=== PATIENT | male | born 1975 | race Caucasian/White ===

== ENCOUNTER 2020-12-07 23:11 | Observation (INO) ==
[2020-12-07] MEDS ORDERED: SODIUM CHLORIDE 0.9% 1000ML 1,000 ML IV ONE (23:51)
[2020-12-07] MEDS ORDERED: LORazepam 1 MG/2 ML VIAL IV STA (23:53)
[2020-12-08 00:15] LABS: Alanine Aminotransferase 43 U/L (12-78); Albumin Level 3.6 gm/dl (3.4-5.0); Aspartate Aminotransferase 63 U/L (15-37); BUN Creatinine Ratio 6.4 (10-20); Blood Urea Nitrogen 8 mg/dl (7-18); Calcium 9.4 mg/dl (8.5-10.1); Carbon Dioxide 24 mmol/L (21-32); Chloride 94 mmol/L (98-107); Creatinine Clr Calc Pharmacy 94.8 ml/min; Est GFR (African American) 78.2 ml/min; Est GFR (Non-African American) 67.5 ml/min; Glucose 121 mg/dl (70-99); Magnesium 1.8 mg/dl (1.8-2.4); Potassium 3.6 mmol/L (3.5-5.1); Sodium 132 mmol/L (136-145)
[2020-12-08] MEDS ORDERED: cefTRIAXone SODIUM 2,000 MG/70 ML BAG IV STA (00:16)
[2020-12-08 00:19] LABS: Albumin Globulin Ratio 0.8 (0.9-2); Alkaline Phosphatase 97 U/L (45-117); Bilirubin,Total 1.6 mg/dl (0.2-1); Globulin 4.5 gm/dl (2.5-4.0); Total Protein 8.1 gm/dl (6.4-8.2); Troponin I < 0.015 ng/ml (0-0.045)
[2020-12-08 00:20] LABS: Partial Thromboplastin Ratio 0.9; Partial Thromboplastin Time 24.3 Seconds (21.0-31.0)
[2020-12-08 00:21] LABS: Hematocrit (blood only) 50.1 % (42-52); Hemoglobin 17.8 g/dL (14.0-18.0); Mean Corpuscular Hemoglobin 33.2 pg (25-34); Mean Corpuscular Hgb Conc 35.5 g/dL (32-36); Mean Corpuscular Volume 93.5 fL (80-100); Mean Platelet Volume 9.5 fL (7.4-10.4); Platelet Count 68 K/uL (130-400); RDW Coefficient of Variation 16.1 % (11.5-14.5); RDW Standard Deviation 55.1 fL (36.4-46.3); Red Blood Count 5.36 M/uL (4.7-6.1); White Blood Count 6.58 K/uL (4.8-10.8)
[2020-12-08] MEDS ORDERED: cloNIDine HCL 0.3 MG/24 HR TRANSDERM SYS TD STA (00:21)
[2020-12-08] MEDS ORDERED: MULTI-VITAMIN INFUSION 10 ML, THIAMINE HCL 100 MG, FOLIC ACID 1 MG in SODIUM CHLORIDE 0... IV ONE (00:21)
[2020-12-08] MEDS ORDERED: LORazepam 1 MG/2 ML VIAL IV STA (00:22)
[2020-12-08 00:41] LABS: Basophils # (auto) 0.01 K/uL (0-0.2); Basophils % (auto) 0.2 %; Eosinophils # (auto) 0.03 K/uL (0-0.5); Eosinophils % (auto) 0.5 %; Immature Granulocytes # (auto) 0.02 K/uL (0.00-0.02); Immature Granulocytes % (auto) 0.3 %; Lymphocytes # (auto) 0.54 K/uL (1.2-3.4); Lymphocytes % (auto) 8.2 %; Monocytes # (auto) 0.81 K/uL (0.11-0.59); Monocytes % (auto) 12.3 %; Neutrophils # (auto) 5.17 K/uL (1.4-6.5); Neutrophils % (auto) 78.5 %; Platelet Estimate Decreased (Normal); RBC Morphology Unremarkable
[2020-12-08 00:48] LABS: Lyme Ab IgG w/WB Rflx Negative (Negative); Lyme Ab IgM w/WB Rflx Negative (Negative)
--- NOTE | 2020-12-08 02:19 | Emergency Department Note ---
Impression & Plan Alcohol withdrawal ED Provider Note NAME: RAUL MCCORMICK AGE: 45 SEX: M : 1975 ARRIVES VIA: Ambulance INFORMANT: Patient, EMS ED PROVIDER(S): Abimael Quintero MD CHIEF COMPLAINT: Feels like passing out, intense sweating HPI: This a 45-year-old male who was driving his car this evening when he became dizzy and extremely sweaty. The patient reports anytime he moves his head he is extremely dizzy. He reports rest makes this better. He reports he had a similar incident approximately 1 month ago. He denies any fevers or chills. He reports nothing seems to make this any better or worse. He called EMS because he felt like he was going to pass out. Upon arrival to the emergency department the patient is extremely sweaty. ROS: See above HPI for pertinent positives & negatives. A total of 10 systems reviewed and were otherwise negative. PAST MEDICAL HISTORY: See Below PAST SURGICAL HISTORY: See Below FAMILY HISTORY: See Below SOCIAL HISTORY: See Below HOME MEDICATIONS: See Below ALLERGIES: See Below VITALS: See Below PHYSICAL EXAMINATION: VITAL SIGNS - Vital signs and nursing notes were reviewed. GENERAL -45 -year-old male appearing stated age who is in moderate distress. Communicates well with provider and answers questions appropriately. SKIN - Without rashes, extremely diaphoretic HEAD - NC/AT. EYES - PERRL with EOMI bilaterally. Sclera anicteric. Palpebral conjunctiva pink and moist with no injection noted. EARS - No deformities of external structures noted on gross examination bilaterally. NOSE - Midline and without cyanosis. No epistaxis or purulent drainage noted. Septum midline without deviation or septal hematoma noted. MOUTH/OROPHARYNX - Without perioral cyanosis. Buccal mucosa pink and moist and without leukoplakia. Tongue midline with equal elevation of palate bilaterally. No tonsillar hypertrophy, erythema, or exudates noted. NECK - Neck with FROM. Supple to palpation. No nuchal rigidity. LUNGS - Chest wall symmetric without accessory muscle use, intercostals retractions, or central cyanosis. Normal vesicular breath sounds CTA B/L. No wheezes, rales, or rhonchi appreciated. CARDIAC - RRR with S1/S2. No murmur, rubs, or gallops appreciated. ABDOMEN - Abdominal contour BS normoactive all four quadrants. No tenderness, palpable masses, hepatosplenomegaly, or ascites noted. EXTREMITIES - No clubbing or peripheral cyanosis. No pretibial edema present. +3/5 radial, posterior tibial, and dorsalis pedis pulses palpated throughout. +5/5 strength noted in UE/LE bilaterally. NEUROLOGIC - Cranial nerves II through XII grossly intact. Sensory intact to light touch throughout. Patellar reflexes +2/4. PSYCH - A&Ox3 and cooperates fully with examiner. Pt is very pleasant and interacts well with examiner. MEDICAL DECISION MAKING: Patient was seen and evaluated as above in room A9. Review was performed of [facility] notes and vital signs. I did review pertinent previous visits and patient history. After obtaining a thorough history and physical examination the above work up was performed. This a 45-year-old male who presents emergency department with what appears to be acute alcohol withdrawal. Patient was given Ativan here in the emergency department x2 as well as a clonidine patch and a banana bag. He does not have an elevation in his white blood cell count his troponin is also not elevated. In addition the patient also has elevations in his liver enzymes with a decrease in his platelets therefore he was covered for anaplasmosis by being started on IV Rocephin. I did discuss the case with the hospitalist service who did agree to meet the patient. An order was placed for continuous cardiac monitoring. The monitor shows a rate of 86 with Normal SInus rhythm. The patient was evaluated during a period of high volume and high acuity during the global COVID-19 pandemic, and that diagnosis was suspected/considered upon their initial presentation. Their evaluation, treatment and testing was consistent with current guidelines for patients who present with complaints or symptoms that may be related to COVID-19. Patient was seen while provider was wearing PPE. Triage Nursing notes reviewed. Prior medical records reviewed Vital Signs: reviewed and remarkable for hypertension, tachycardia Differential diagnosis: Alcohol intoxication, toxicologic, infection, hypoglycemia, electrolyte abnormalities, cardiac sources, intracerebral event, neurologic, trauma, as well as other pathologies. ER treatment provided: See below Diagnostics interpreted by me: ECG: EKG shows a sinus tachycardia left axis deviation no ST elevation or depression QTC is 479 ventricular rate is 102 EKG is compared to 07/15/2020 nonspecific T wave abnormality now evident in the lateral leads. Laboratory studies: As stated above and show below. Imaging studies: See below Consultation(s): Internal Medicine ED COURSE: Critical Care: I have personally spent greater than 30 minutes of critical care time in the direct management of this patient. This includes bedside care, interpretation of diagnostic studies, and testing, discussion with consultants, patient, and family members, and other required patient management activities. This 30 minutes is in excess of all separately billable procedures. Past Med/Surg History Medical History (Updated 12/09/20 @ 04:23 by Abimael Quintero MD) Alcohol abuse Anxiety Depression Surgical History (Updated 12/08/20 @ 06:52 by Melinda Butcher DO) History of tonsillectomy Social History Smoking Status: Never smoker Second Hand Exposure: No; Do You Dip or Chew Tobacco: No; Tobacco Cessation Education Requested by Patient: No Hx Alcohol Use: Yes Alcohol type: wine Hx Substance Use: No Preferred Language: Wolof Communication Ability: Effective Converter Supervisor Required: No Beliefs That Will Affect Care: None Current Living Situation: Alone Other Information That Helps Us Care for You: No Feels Safe at Home: Yes Assistive Devices: None Allergies Allergies Allergy/AdvReac Type Severity Reaction Status Date / Time Penicillins Allergy Mild Hives Verified 12/08/20 02:25 Home Meds Home Medications Medication Instructions Recorded Confirmed cholecalciferol (vitamin D3) 0 mcg PO DAILY 12/08/20 12/08/20 [Vitamin D3] multivitamin 1 tab PO DAILY 12/08/20 12/08/20 vitamin B complex 1 tab PO DAILY 12/08/20 12/08/20 vitamin E 0 unit PO DAILY 12/08/20 12/08/20 Results & Data (ED) Vital Signs Vital Signs - 24 hr 12/07/20 23:15 12/07/20 23:16 12/07/20 23:30 Temperature 37.1 C Temperature Source Oral Pulse Rate 112 H 114 H 110 H Pulse Rate from SpO2 Sensor 113 H 108 H Respiratory Rate 15 17 11 L Respiratory Effort / Characteristics Non-Labored Spontaneous Respiratory Pattern Regular Blood Pressure 220/129 H 220/129 H 210/124 H Blood Pressure Mean 159 159 152 Blood Pressure Position Lying Pulse Oximetry 98 98 96 Oxygen Delivery Method Room Air Sepsis Recent Fever Within 48 Hours No Sepsis New/Unexplained Change in Mental Status No Sepsis Action Taken by Nursing No Action Required 12/07/20 23:45 12/08/20 00:00 12/08/20 00:10 Temperature Temperature Source Pulse Rate 104 H 103 H 115 H Pulse Rate from SpO2 Sensor 104 H 104 H 115 H Respiratory Rate 18 16 11 L Respiratory Effort / Characteristics Respiratory Pattern Blood Pressure 203/119 H 199/122 H Blood Pressure Mean 147 147 Blood Pressure Position Pulse Oximetry 96 96 98 Oxygen Delivery Method Sepsis Recent Fever Within 48 Hours Sepsis New/Unexplained Change in Mental Status Sepsis Action Taken by Nursing 12/08/20 00:15 12/08/20 00:45 12/08/20 01:00 Temperature Temperature Source Pulse Rate 105 H 107 H 106 H Pulse Rate from SpO2 Sensor 106 H 109 H 106 H Respiratory Rate 20 12 13 Respiratory Effort / Characteristics Respiratory Pattern Blood Pressure 196/123 H 172/110 H 160/111 H Blood Pressure Mean 147 130 127 Blood Pressure Position Pulse Oximetry 95 92 95 Oxygen Delivery Method Sepsis Recent Fever Within 48 Hours Sepsis New/Unexplained Change in Mental Status Sepsis Action Taken by Nursing 12/08/20 01:28 12/08/20 01:30 12/08/20 02:00 Temperature Temperature Source Pulse Rate 101 H 106 H 106 H Pulse Rate from SpO2 Sensor 102 H 106 H 106 H Respiratory Rate 20 15 20 Respiratory Effort / Characteristics Respiratory Pattern Blood Pressure 173/107 H 169/102 H 153/100 H Blood Pressure Mean 129 124 117 Blood Pressure Position Pulse Oximetry 92 95 94 Oxygen Delivery Method Sepsis Recent Fever Within 48 Hours Sepsis New/Unexplained Change in Mental Status Sepsis Action Taken by Nursing Laboratory Data Result diagrams: 12/08/20 05:35 12/07/20 23:30 Lab Results 12/07/20 12/07/20 12/07/20 Range/Units 23:26 23:30 23:30 WBC 6.58 (4.8-10.8) K/uL RBC 5.36 (4.7-6.1) M/uL Hgb 17.8 (14.0-18.0) g/dL Hct 50.1 (42-52) % MCV 93.5 (80-100) fL MCH 33.2 (25-34) pg MCHC 35.5 (32-36) g/dL RDW Std Deviation 55.1 H (36.4-46.3) fL RDW Coeff of Theron 16.1 H (11.5-14.5) % Plt Count 68 L (130-400) K/uL MPV 9.5 (7.4-10.4) fL Immature Gran % (Auto) 0.3 % Neut % (Auto) 78.5 % Lymph % (Auto) 8.2 % Granite % (Auto) 12.3 % Eos % (Auto) 0.5 % Baso % (Auto) 0.2 % Neut # (Auto) 5.17 (1.4-6.5) K/uL Lymph # (Auto) 0.54 L (1.2-3.4) K/uL Granite # (Auto) 0.81 H (0.11-0.59) K/uL Eos # (Auto) 0.03 (0-0.5) K/uL Baso # (Auto) 0.01 (0-0.2) K/uL Immature Gran # (Auto) 0.02 (0.00-0.02) K/uL Platelet Estimate Decreased L (Normal) RBC Morphology Unremarkable APTT 24.3 (21.0-31.0) Seconds PTT Ratio 0.9 Sodium (136-145) mmol/L Potassium (3.5-5.1) mmol/L Chloride (98-107) mmol/L Carbon Dioxide (21-32) mmol/L Anion Gap (3-11) BUN (7-18) mg/dl Creatinine (0.6-1.4) mg/dl Est Cr Clr Drug Dosing ml/min Est GFR ( Amer) ml/min Est GFR (Non-Af Amer) ml/min BUN/Creatinine Ratio (10-20) Glucose (70-99) mg/dl POC Glucose 138 H (70-99) mg/dl Calcium (8.5-10.1) mg/dl Magnesium (1.8-2.4) mg/dl Total Bilirubin (0.2-1) mg/dl AST (15-37) U/L ALT (12-78) U/L Alkaline Phosphatase (45-117) U/L Troponin I (0-0.045) ng/ml Total Protein (6.4-8.2) gm/dl Albumin (3.4-5.0) gm/dl Globulin (2.5-4.0) gm/dl Albumin/Globulin Ratio (0.9-2) Ethyl Alcohol mg/dL (0-3) mg/dl Anaplasma Smear See Comment Lyme Disease IgG Ab (Negative) Lyme Disease IgM Ab (Negative) COVID-19 Eval Order SARS-CoV-2 (PCR) (Negative) 12/07/20 12/07/20 12/08/20 Range/Units 23:30 23:30 00:06 WBC (4.8-10.8) K/uL RBC (4.7-6.1) M/uL Hgb (14.0-18.0) g/dL Hct (42-52) % MCV (80-100) fL MCH (25-34) pg MCHC (32-36) g/dL RDW Std Deviation (36.4-46.3) fL RDW Coeff of Therno (11.5-14.5) % Plt Count (130-400) K/uL MPV (7.4-10.4) fL Immature Gran % (Auto) % Neut % (Auto) % Lymph % (Auto) % Granite % (Auto) % Eos % (Auto) % Baso % (Auto) % Neut # (Auto) (1.4-6.5) K/uL Lymph # (Auto) (1.2-3.4) K/uL Granite # (Auto) (0.11-0.59) K/uL Eos # (Auto) (0-0.5) K/uL Baso # (Auto) (0-0.2) K/uL Immature Gran # (Auto) (0.00-0.02) K/uL Platelet Estimate (Normal) RBC Morphology APTT (21.0-31.0) Seconds PTT Ratio Sodium 132 L (136-145) mmol/L Potassium 3.6 (3.5-5.1) mmol/L Chloride 94 L (98-107) mmol/L Carbon Dioxide 24 (21-32) mmol/L Anion Gap 14.0 H (3-11) BUN 8 (7-18) mg/dl Creatinine 1.29 (0.6-1.4) mg/dl Est Cr Clr Drug Dosing 94.8 ml/min Est GFR ( Amer) 78.2 ml/min Est GFR (Non-Af Amer) 67.5 ml/min BUN/Creatinine Ratio 6.4 L (10-20) Glucose 121 H (70-99) mg/dl POC Glucose (70-99) mg/dl Calcium 9.4 (8.5-10.1) mg/dl Magnesium 1.8 (1.8-2.4) mg/dl Total Bilirubin 1.6 H (0.2-1) mg/dl AST 63 H (15-37) U/L ALT 43 (12-78) U/L Alkaline Phosphatase 97 (45-117) U/L Troponin I < 0.015 (0-0.045) ng/ml Total Protein 8.1 (6.4-8.2) gm/dl Albumin 3.6 (3.4-5.0) gm/dl Globulin 4.5 H (2.5-4.0) gm/dl Albumin/Globulin Ratio 0.8 L (0.9-2) Ethyl Alcohol mg/dL (0-3) mg/dl Anaplasma Smear Lyme Disease IgG Ab Negative (Negative) Lyme Disease IgM Ab Negative (Negative) COVID-19 Eval Order Covid19 at [facility] SARS-CoV-2 (PCR) (Negative) 12/08/20 12/08/20 Range/Units 00:06 00:31 WBC (4.8-10.8) K/uL RBC (4.7-6.1) M/uL Hgb (14.0-18.0) g/dL Hct (42-52) % MCV (80-100) fL MCH (25-34) pg MCHC (32-36) g/dL RDW Std Deviation (36.4-46.3) fL RDW Coeff of Theron (11.5-14.5) % Plt Count (130-400) K/uL MPV (7.4-10.4) fL Immature Gran % (Auto) % Neut % (Auto) % Lymph % (Auto) % Granite % (Auto) % Eos % (Auto) % Baso % (Auto) % Neut # (Auto) (1.4-6.5) K/uL Lymph # (Auto) (1.2-3.4) K/uL Granite # (Auto) (0.11-0.59) K/uL Eos # (Auto) (0-0.5) K/uL Baso # (Auto) (0-0.2) K/uL Immature Gran # (Auto) (0.00-0.02) K/uL Platelet Estimate (Normal) RBC Morphology APTT (21.0-31.0) Seconds PTT Ratio Sodium (136-145) mmol/L Potassium (3.5-5.1) mmol/L Chloride (98-107) mmol/L Carbon Dioxide (21-32) mmol/L Anion Gap (3-11) BUN (7-18) mg/dl Creatinine (0.6-1.4) mg/dl Est Cr Clr Drug Dosing ml/min Est GFR ( Amer) ml/min Est GFR (Non-Af Amer) ml/min BUN/Creatinine Ratio (10-20) Glucose (70-99) mg/dl POC Glucose (70-99) mg/dl Calcium (8.5-10.1) mg/dl Magnesium (1.8-2.4) mg/dl Total Bilirubin (0.2-1) mg/dl AST (15-37) U/L ALT (12-78) U/L Alkaline Phosphatase (45-117) U/L Troponin I (0-0.045) ng/ml Total Protein (6.4-8.2) gm/dl Albumin (3.4-5.0) gm/dl Globulin (2.5-4.0) gm/dl Albumin/Globulin Ratio (0.9-2) Ethyl Alcohol mg/dL < 3.0 (0-3) mg/dl Anaplasma Smear Lyme Disease IgG Ab (Negative) Lyme Disease IgM Ab (Negative) COVID-19 Eval Order SARS-CoV-2 (PCR) NEGATIVE (Negative) Administered Medications Lorazepam (Ativan) 1 mg in 2 mls @ 2 mls/min IV UD PRN; Protocol PRN Reason: EtOH Withdrawl AWSS Score 6,7 Stop: 01/07/21 03:27 Last Admin: 12/09/20 00:03 Dose: 2 mls/min Documented by: [id number] Admin: 12/08/20 20:36 Dose: 2 mls/min Documented by: [id number] Admin: 12/08/20 15:25 Dose: 2 mls/min Documented by: [id number] Admin: 12/08/20 05:49 Dose: 2 mls/min Documented by: [id number] Miscellaneous (Check Clonidine Patch Placement) 1 ea N/A QS LAN Stop: 01/07/21 07:59 Last Admin: 12/09/20 00:03 Dose: 1 ea Documented by: [id number] Admin: 12/08/20 15:49 Dose: 1 ea Documented by: [id number] Admin: 12/08/20 11:39 Dose: 1 ea Documented by: [id number] Miscellaneous (Remove Clonidine Patch) 1 ea N/A Q7D@0600 LAN Stop: 01/14/21 05:59 Last Admin: 12/08/20 11:39 Dose: 1 ea Documented by: [id number] Thiamine HCl (Thiamine Hcl 100 Mg Tab) 200 mg PO QAM LAN Stop: 01/07/21 08:59 Last Admin: 12/08/20 08:01 Dose: 200 mg Documented by: [id number] Discontinued Medications Clonidine HCl (Clonidine Hcl 0.3 Mg/24 Hr Transderm Sys) 1 patch TD NOW STA Stop: 12/08/20 00:22 Last Admin: 12/08/20 00:38 Dose: 1 patch Documented by: [id number] Gabapentin (Gabapentin 400 Mg Cap) 800 mg PO ONE ONE Stop: 12/08/20 07:16 Last Admin: 12/08/20 08:00 Dose: 800 mg Documented by: [id number] Gabapentin (Gabapentin 400 Mg Cap) 400 mg PO Q6H LAN Stop: 12/08/20 20:01 Last Admin: 12/08/20 20:38 Dose: 400 mg Documented by: [id number] Admin: 12/08/20 13:57 Dose: 400 mg Documented by: [id number] Hydroxyzine HCl (Hydroxyzine Hcl 25 Mg Tab) 25 mg PO NOW STA Stop: 12/08/20 03:29 Last Admin: 12/08/20 03:36 Dose: 25 mg Documented by: [id number] Sodium Chloride (Nss 1000ml) 1,000 mls @ 999 mls/hr IV .Q1H1M ONE Stop: 12/08/20 00:51 Last Infusion: 12/08/20 02:00 Dose: 0 mls/hr Documented by: [id number] Admin: 12/08/20 00:04 Dose: 999 mls/hr Documented by: [id number] Lorazepam (Ativan) 1 mg in 2 mls @ 2 mls/min IV NOW STA Stop: 12/07/20 23:54 Last Admin: 12/08/20 00:04 Dose: 2 mls/min Documented by: [id number] Ceftriaxone Sodium (Rocephin) 2,000 mg in 70 mls @ 140 mls/hr IV NOW STA Stop: 12/08/20 00:45 Last Infusion: 12/08/20 02:00 Dose: 0 mls/hr Documented by: [id number] Admin: 12/08/20 00:33 Dose: 140 mls/hr Documented by: [id number] Multivitamins 10 ml/ Thiamine HCl 100 mg/ Folic Acid 1 mg/Sodium Chloride 1, 011.2 mls @ 1,011.2 mls/hr IV .Q1H ONE Stop: 12/08/20 01:20 Last Infusion: 12/08/20 02:13 Dose: 0 mls/hr Documented by: [id number] Admin: 12/08/20 00:38 Dose: 1,011.2 mls/hr Documented by: [id number] Lorazepam (Ativan) 1 mg in 2 mls @ 2 mls/min IV NOW STA Stop: 12/08/20 00:23 Last Admin: 12/08/20 00:33 Dose: 2 mls/min Documented by: [id number] Ioversol (Optiray 350 500ml) 105 ml IV ONCE ONE Stop: 12/08/20 04:07 Last Admin: 12/08/20 04:06 Dose: 105 ml Documented by: [id number] Miscellaneous (Remove Clonidine Patch) 1 ea N/A CQWK LAN Stop: 01/07/21 00:29 Last Admin: 12/08/20 02:00 Dose: Not Given Documented by: [id number] Discharge Plan Visit Data Chief Complaint: Syncope (Near Syncope) Stated Complaint: DIZZY/LIGHTHEADED ED Provider: Abimael Quintero Discharge Problem: Alcohol withdrawal Patient Disposition: Admitted As Inpatient Discharge Instructions Interventions: ED Discharge Assessment Last Done: 12/08/20 04:33 Discharge Problem: Alcohol withdrawal Qualifiers: Complication of substance-induced condition: with unspecified complication Qual ified Code(s): F10.239 - Alcohol dependence with withdrawal, unspecified
[2020-12-08] MEDS ORDERED: LORazepam 2 MG/4 ML VIAL IV PRN (03:28)
[2020-12-08] MEDS ORDERED: LORazepam 3 MG/6 ML VIAL IV PRN (03:28)
[2020-12-08] MEDS ORDERED: hydrOXYzine HCl 25 MG TAB PO STA (03:28)
[2020-12-08] MEDS ORDERED: ATIVAN IV ALCOHOL WITHDRAWL IV PRN (03:28)
--- NOTE | 2020-12-08 03:36 | History & Physical Report ---
Date of Service December 08, 2020 Assessment & Plan (1) Pre-syncope: Danny Park is a 45-year-old male with past medical history significant for anxiety and depression; who presents for concerns of multiple episodes of near syncopal events without falling last night. Pre-syncope: -Uncertain etiology of presyncopal events; difficult to delineate in the setting of hypertension tachycardia and potential alcohol withdrawal on top of baseline history of anxiety with potential panic attacks also confounding picture -In the absence of focal neurologic findings prior to or after these events do not believe that this represented TIA/stroke events -CTA head/neck demonstrating patent major intracranial arteries, carotid, and vertebral arteries without occlusion dissection or hemodynamically significant stenosis -CT head demonstrating no acute intracranial hemorrhage, mass-effect, or edema. No evidence of acute cortical stroke -Ordered orthostatic blood pressure measurements Anxiety: -Potential contributor to patient's presyncopal events given the surrounding symptoms prior to events and feelings of impending doom -Unfortunately this is complicated by alcohol use and use of Ativan will additionally quell anxiety concerns that might present as alcohol withdrawal -With the minimal effect of Ativan in the ED, gave 25 mg of hydroxyzine which allowed patient to fall asleep -Consideration of secondary sources of anxiety/hypertension/tachycardia if continuing to see no improvement in either anxiety or potentially alcohol withdrawal related symptoms -This could include urine metanephrines for potential pheochromocytoma Alcohol use: -Uncertain what role this is playing as related to both anxiety and syncopal events -Negative alcohol level on admission -Continue AWSS protocol with Ativan as needed per protocol -Continue clonidine patch Pulmonary hypertension: -Mildly enlarged main pulmonary artery noted on CTA neck raising the possibility of primary pulmonary hypertension Thrombocytopenia: -Platelet count 68 on admission. Possibly secondary to underlying liver dysfunction vs toxic effects from EtOH vs tick-borne illness -Patient not having any acute signs of bleeding -Anaplasmosis and tick panel pending -Continue to monitor Transaminitis: -AST 63, ALT 43, bilirubin 1.6 on admission -Continue to monitor -Total and direct bilirubin ordered Diet: Regular CODE STATUS: Full code DVT ppx: deferred at this time (2) Anxiety: (3) Alcohol use: History of Present Illness Primary Care Provider: NO PCP Danny Park is a 45-year-old male with past medical history significant for anxiety and depression; who presents for concerns of multiple episodes of near syncopal events without falling last night. Endorses that he has had similar kind of symptoms once before, approximately 2 weeks ago, this episode occurred following working out at the gym taking a hot shower and then attempting to recover on a hydrobed; at the time his symptoms resolved relatively quickly, with him needing to sit up and control his breathing for about 20 seconds. Up until last night had no further episodes like this. Last night, returned from buying food at the store and was laying in his car watching some videos on his phone when he realized that several hours had passed by and quickly sat upright in order to get out of the car, at that point he felt slightly off-kilter/unbalanced similar to the original episode, took about 2030 seconds taking slow deep breaths and felt like this resolved. Then upon getting out of his (what he notes as notably warm car) he was standing by the side of his car when a cold breeze hit him and he became very dizzy with noted nausea, and feeling of unsteadiness. Following this recurring he began to worry that he would continue to have the symptoms and if he was continuing to have these things that they might represent that he is dying sometime soon. Endorses that while he does drink alcohol this is typically in a 2-3 beer a day capacity, with maybe once a week having a bottle of wine while he is watching movies or laying around within his house. Endorses that while he used to drink vodka over 2 to 3 days he has not done this in many months. Has been trying to cope with his anxiety through utilization of the gym more frequently lately, however on stressful days will still have the bottle of wine. States that previously, before he started going to the gym, his main coping mechanism would be through alcohol; previously he had been on antidepressant/antianxiety medications that he would take daily and recalls that when he was on these medications he felt "the best I had ever been" noted that he was having much less anxiousness with being around other people and was able to be more social without complication, however stopped taking these medications because of concerns of increasing forgetfulness and blunted mood. States that his last drink was approximately 24 hours ago. In the ED, was notably diaphoretic with apparent anxiousness and tremulousness. Received two 1 mg doses of Ativan with no improvement of his symptoms but improvement of his vital signs. Was started on a clonidine patch, and was continuing to have the above symptoms. Allergies Allergy/AdvReac Type Severity Reaction Status Date / Time Penicillins Allergy Mild Hives Verified 12/08/20 02:25 Home Medications Medication Instructions Recorded Confirmed Type cholecalciferol (vitamin D3) 0 mcg PO DAILY 12/08/20 12/08/20 History [Vitamin D3] multivitamin 1 tab PO DAILY 12/08/20 12/08/20 History vitamin B complex 1 tab PO DAILY 12/08/20 12/08/20 History vitamin E 0 unit PO DAILY 12/08/20 12/08/20 History Past Med/Surg History Medical History (Updated 12/08/20 @ 03:47 by Jose Munoz MD) Alcohol abuse Anxiety Depression Surgical History (Updated 12/08/20 @ 06:52 by Melinda Butcher DO) History of tonsillectomy Social History Smoking Status: Never smoker Second Hand Exposure: No; Do You Dip or Chew Tobacco: No; Tobacco Cessation Education Requested by Patient: No Hx Alcohol Use: Yes Alcohol type: wine Hx Substance Use: No Preferred Language: Maltese Communication Ability: Effective [employer] Lead Teacher Required: No Beliefs That Will Affect Care: None Current Living Situation: Alone Other Information That Helps Us Care for You: No Feels Safe at Home: Yes Assistive Devices: None Review of Systems Review of Systems: All systems reviewed & are unremarkable except as noted in HPI & below Physical Exam Constitutional: WD/WN, vitals as above + diaphoretic Eyes: PERRL, conjunctivae normal, anicteric sclerae Respiratory: normal respiratory effort, lungs clear to auscultation Auscultation: no crackles, no rales, no rhonchi and no wheezes Cardiovascular: Rate/Rhythm: regular rate and regular rhythm Heart Sounds: no gallop, no murmur and no cardiac rub Vessels: normal peripheral pulses; no JVD Extremities: no edema Gastrointestinal (Abdomen): Inspection/Auscultation: normal bowel sounds; abdomen not distended Percussion/Palpation: abdomen soft; abdomen nontender and no guarding Musculoskeletal: no cyanosis or clubbing, extremities motor strength 5/5 Skin: no rashes, warm and dry Neurologic: PERRL, EOMI, accommodation nl, no face palsy, no dysarthria CN's II-XI intact bilaterally and moves all extremities Psychiatric: Orientation: alert and oriented x 3 Results & Data Results & Data ([facility]) Vital Signs (Past 12 Hours) Vital Signs Temp Pulse Resp BP Pulse Ox 12/08/20 02:00 106 H 20 153/100 H 94 12/08/20 01:30 106 H 15 169/102 H 95 12/08/20 01:28 101 H 20 173/107 H 92 12/08/20 01:00 106 H 13 160/111 H 95 12/08/20 00:45 107 H 12 172/110 H 92 12/08/20 00:15 105 H 20 196/123 H 95 12/08/20 00:10 115 H 11 L 98 12/08/20 00:00 103 H 16 199/122 H 96 12/07/20 23:45 104 H 18 203/119 H 96 12/07/20 23:30 110 H 11 L 210/124 H 96 12/07/20 23:16 37.1 C 114 H 17 220/129 H 98 12/07/20 23:15 112 H 15 220/129 H 98 Laboratory Results 12/08/20 12/08/20 12/08/20 Range/Units 00:31 00:06 00:06 WBC (4.8-10.8) K/uL RBC (4.7-6.1) M/uL Hgb (14.0-18.0) g/dL Hct (42-52) % MCV (80-100) fL MCH (25-34) pg MCHC (32-36) g/dL RDW Std Deviation (36.4-46.3) fL RDW Coeff of Theron (11.5-14.5) % Plt Count (130-400) K/uL MPV (7.4-10.4) fL Immature Gran % (Auto) % Neut % (Auto) % Lymph % (Auto) % Toombs % (Auto) % Eos % (Auto) % Baso % (Auto) % Neut # (Auto) (1.4-6.5) K/uL Lymph # (Auto) (1.2-3.4) K/uL Toombs # (Auto) (0.11-0.59) K/uL Eos # (Auto) (0-0.5) K/uL Baso # (Auto) (0-0.2) K/uL Immature Gran # (Auto) (0.00-0.02) K/uL Platelet Estimate (Normal) RBC Morphology APTT (21.0-31.0) Seconds PTT Ratio Sodium (136-145) mmol/L Potassium (3.5-5.1) mmol/L Chloride (98-107) mmol/L Carbon Dioxide (21-32) mmol/L Anion Gap (3-11) BUN (7-18) mg/dl Creatinine (0.6-1.4) mg/dl Est Cr Clr Drug Dosing ml/min Est GFR ( Amer) ml/min Est GFR (Non-Af Amer) ml/min BUN/Creatinine Ratio (10-20) Glucose (70-99) mg/dl POC Glucose (70-99) mg/dl Calcium (8.5-10.1) mg/dl Magnesium (1.8-2.4) mg/dl Total Bilirubin (0.2-1) mg/dl AST (15-37) U/L ALT (12-78) U/L Alkaline Phosphatase (45-117) U/L Troponin I (0-0.045) ng/ml Total Protein (6.4-8.2) gm/dl Albumin (3.4-5.0) gm/dl Globulin (2.5-4.0) gm/dl Albumin/Globulin Ratio (0.9-2) Tryptase Ethyl Alcohol mg/dL < 3.0 (0-3) mg/dl Anaplasma Smear A. phagocytophilum DNA Babesia microti DNA PCR Lyme Disease IgG Ab (Negative) Lyme Disease IgM Ab (Negative) COVID-19 Eval Order Covid19 at [facility] SARS-CoV-2 (PCR) NEGATIVE (Negative) E.chaffeensis DNA (PCR) 12/07/20 12/07/20 12/07/20 Range/Units 23:30 23:30 23:30 WBC (4.8-10.8) K/uL RBC (4.7-6.1) M/uL Hgb (14.0-18.0) g/dL Hct (42-52) % MCV (80-100) fL MCH (25-34) pg MCHC (32-36) g/dL RDW Std Deviation (36.4-46.3) fL RDW Coeff of Theron (11.5-14.5) % Plt Count (130-400) K/uL MPV (7.4-10.4) fL Immature Gran % (Auto) % Neut % (Auto) % Lymph % (Auto) % Toombs % (Auto) % Eos % (Auto) % Baso % (Auto) % Neut # (Auto) (1.4-6.5) K/uL Lymph # (Auto) (1.2-3.4) K/uL Toombs # (Auto) (0.11-0.59) K/uL Eos # (Auto) (0-0.5) K/uL Baso # (Auto) (0-0.2) K/uL Immature Gran # (Auto) (0.00-0.02) K/uL Platelet Estimate (Normal) RBC Morphology APTT (21.0-31.0) Seconds PTT Ratio Sodium 132 L (136-145) mmol/L Potassium 3.6 (3.5-5.1) mmol/L Chloride 94 L (98-107) mmol/L Carbon Dioxide 24 (21-32) mmol/L Anion Gap 14.0 H (3-11) BUN 8 (7-18) mg/dl Creatinine 1.29 (0.6-1.4) mg/dl Est Cr Clr Drug Dosing 94.8 ml/min Est GFR ( Amer) 78.2 ml/min Est GFR (Non-Af Amer) 67.5 ml/min BUN/Creatinine Ratio 6.4 L (10-20) Glucose 121 H (70-99) mg/dl POC Glucose (70-99) mg/dl Calcium 9.4 (8.5-10.1) mg/dl Magnesium 1.8 (1.8-2.4) mg/dl Total Bilirubin 1.6 H (0.2-1) mg/dl AST 63 H (15-37) U/L ALT 43 (12-78) U/L Alkaline Phosphatase 97 (45-117) U/L Troponin I < 0.015 (0-0.045) ng/ml Total Protein 8.1 (6.4-8.2) gm/dl Albumin 3.6 (3.4-5.0) gm/dl Globulin 4.5 H (2.5-4.0) gm/dl Albumin/Globulin Ratio 0.8 L (0.9-2) Tryptase Ethyl Alcohol mg/dL (0-3) mg/dl Anaplasma Smear A. phagocytophilum DNA Pending Babesia microti DNA PCR Pending Lyme Disease IgG Ab Negative (Negative) Lyme Disease IgM Ab Negative (Negative) COVID-19 Eval Order SARS-CoV-2 (PCR) (Negative) E.chaffeensis DNA (PCR) Pending 12/07/20 12/07/20 12/07/20 Range/Units 23:30 23:30 23:26 WBC 6.58 (4.8-10.8) K/uL RBC 5.36 (4.7-6.1) M/uL Hgb 17.8 (14.0-18.0) g/dL Hct 50.1 (42-52) % MCV 93.5 (80-100) fL MCH 33.2 (25-34) pg MCHC 35.5 (32-36) g/dL RDW Std Deviation 55.1 H (36.4-46.3) fL RDW Coeff of Theron 16.1 H (11.5-14.5) % Plt Count 68 L (130-400) K/uL MPV 9.5 (7.4-10.4) fL Immature Gran % (Auto) 0.3 % Neut % (Auto) 78.5 % Lymph % (Auto) 8.2 % Toombs % (Auto) 12.3 % Eos % (Auto) 0.5 % Baso % (Auto) 0.2 % Neut # (Auto) 5.17 (1.4-6.5) K/uL Lymph # (Auto) 0.54 L (1.2-3.4) K/uL Toombs # (Auto) 0.81 H (0.11-0.59) K/uL Eos # (Auto) 0.03 (0-0.5) K/uL Baso # (Auto) 0.01 (0-0.2) K/uL Immature Gran # (Auto) 0.02 (0.00-0.02) K/uL Platelet Estimate Decreased L (Normal) RBC Morphology Unremarkable APTT 24.3 (21.0-31.0) Seconds PTT Ratio 0.9 Sodium (136-145) mmol/L Potassium (3.5-5.1) mmol/L Chloride (98-107) mmol/L Carbon Dioxide (21-32) mmol/L Anion Gap (3-11) BUN (7-18) mg/dl Creatinine (0.6-1.4) mg/dl Est Cr Clr Drug Dosing ml/min Est GFR ( Amer) ml/min Est GFR (Non-Af Amer) ml/min BUN/Creatinine Ratio (10-20) Glucose (70-99) mg/dl POC Glucose 138 H (70-99) mg/dl Calcium (8.5-10.1) mg/dl Magnesium (1.8-2.4) mg/dl Total Bilirubin (0.2-1) mg/dl AST (15-37) U/L ALT (12-78) U/L Alkaline Phosphatase (45-117) U/L Troponin I (0-0.045) ng/ml Total Protein (6.4-8.2) gm/dl Albumin (3.4-5.0) gm/dl Globulin (2.5-4.0) gm/dl Albumin/Globulin Ratio (0.9-2) Tryptase Ethyl Alcohol mg/dL (0-3) mg/dl Anaplasma Smear See Comment A. phagocytophilum DNA Babesia microti DNA PCR Lyme Disease IgG Ab (Negative) Lyme Disease IgM Ab (Negative) COVID-19 Eval Order SARS-CoV-2 (PCR) (Negative) E.chaffeensis DNA (PCR) 12/07/20 Range/Units 23:00 WBC (4.8-10.8) K/uL RBC (4.7-6.1) M/uL Hgb (14.0-18.0) g/dL Hct (42-52) % MCV (80-100) fL MCH (25-34) pg MCHC (32-36) g/dL RDW Std Deviation (36.4-46.3) fL RDW Coeff of Theron (11.5-14.5) % Plt Count (130-400) K/uL MPV (7.4-10.4) fL Immature Gran % (Auto) % Neut % (Auto) % Lymph % (Auto) % Toombs % (Auto) % Eos % (Auto) % Baso % (Auto) % Neut # (Auto) (1.4-6.5) K/uL Lymph # (Auto) (1.2-3.4) K/uL Toombs # (Auto) (0.11-0.59) K/uL Eos # (Auto) (0-0.5) K/uL Baso # (Auto) (0-0.2) K/uL Immature Gran # (Auto) (0.00-0.02) K/uL Platelet Estimate (Normal) RBC Morphology APTT (21.0-31.0) Seconds PTT Ratio Sodium (136-145) mmol/L Potassium (3.5-5.1) mmol/L Chloride (98-107) mmol/L Carbon Dioxide (21-32) mmol/L Anion Gap (3-11) BUN (7-18) mg/dl Creatinine (0.6-1.4) mg/dl Est Cr Clr Drug Dosing ml/min Est GFR ( Amer) ml/min Est GFR (Non-Af Amer) ml/min BUN/Creatinine Ratio (10-20) Glucose (70-99) mg/dl POC Glucose (70-99) mg/dl Calcium (8.5-10.1) mg/dl Magnesium (1.8-2.4) mg/dl Total Bilirubin (0.2-1) mg/dl AST (15-37) U/L ALT (12-78) U/L Alkaline Phosphatase (45-117) U/L Troponin I (0-0.045) ng/ml Total Protein (6.4-8.2) gm/dl Albumin (3.4-5.0) gm/dl Globulin (2.5-4.0) gm/dl Albumin/Globulin Ratio (0.9-2) Tryptase Pending Ethyl Alcohol mg/dL (0-3) mg/dl Anaplasma Smear A. phagocytophilum DNA Babesia microti DNA PCR Lyme Disease IgG Ab (Negative) Lyme Disease IgM Ab (Negative) COVID-19 Eval Order SARS-CoV-2 (PCR) (Negative) E.chaffeensis DNA (PCR) Diagnostic Findings CTA HEAD: The major intracranial arteries of the anterior and posterior circulation are patent without occlusion or high-grade stenosis. Radiologist: Pauly Day M.D. CTA NECK: The carotid and vertebral arteries of the neck are patent without occlusion, dissection or hemodynamically significant stenosis. Mildly enlarged main pulmonary artery raises the possibility of primary pulmonary arterial hypertension. Mediastinal lymphadenopathy including a right paratracheal lymph node measuring 11 mm in short axis. Radiologist: Pauly Day M.D. CT HEAD: No acute intracranial hemorrhage, mass effect or edema. No evidence of acute cortical stroke. Visualized sinuses and mastoid air cells are clear. Radiologist: Pauly Day M.D. Medications Administered Current Inpatient Medications Lorazepam (Ativan) 1 mg in 2 mls @ 2 mls/min IV UD PRN; Protocol PRN Reason: EtOH Withdrawl AWSS Score 6,7 Stop: 01/07/21 03:27 Lorazepam (Ativan) 2 mg in 4 mls @ 4 mls/min IV UD PRN; Protocol PRN Reason: EtOH Withdrawl AWSS Score 8,9 Stop: 01/07/21 03:27 Lorazepam (Ativan) 3 mg in 6 mls @ 4 mls/min IV ONCE PRN; Protocol PRN Reason: EtOH Withdrawl AWSS Score >=10 Stop: 01/07/21 03:27 Miscellaneous (Remove Clonidine Patch) 1 ea N/A CQWK [facility] Stop: 01/07/21 00:29 Last Admin: 12/08/20 02:00 Dose: Not Given Documented by: Miscellaneous (Check Clonidine Patch Placement) 1 ea N/A QS [facility] Stop: 01/07/21 07:59 Miscellaneous (Ativan Iv Alcohol Withdrawl) 1 ea IV UD PRN; Protocol PRN Reason: EtoH Withdrawal AWSS 6-10+ Stop: 01/07/21 03:27 Supervising Physician Co-Signing Physician Notes Patient seen and examined, chart reviewed, case discussed with Dr. Munoz and I agree with his assessment as above. Patient reports several episodes of lightheadedness and presyncope occurring today - mostly with turning his head. Denies chest pain, palpitations, nausea, vomiting. States his symptoms come in waves On exam patient is afebrile, tachycardic, hypertensive, anxious and tremulous in appearance Poor eye contact and withdrawn affect Skin -no rash HEENT - NC/AT, PERRL, MMM Heart - +S1/S2, regular, tachycardia - ST on monitor Lungs - CTA Abd - +BS, soft, NT/ND Ext- No edema Labs and images reviewed Assessment/Plan - concern for EtOH withdraw + component of anxiety/panic attack ongoing. Unclear how much EtOH patient drinks. Told me that it's 2 bottles of wine per week. He states he has felt shaky before -AWSS protocol -Workup of thrombocytopenia as above -Consider RUQ US to assess liver -Remainder of plan as above Resident Activity Tracking Resident Involvement: Resident Care Provided Care Provided: Adult Hospital Medicine
[2020-12-08] MEDS ORDERED: OPTIRAY 350 500ml IV ONE (04:06)
[2020-12-08] MEDS ORDERED: ALUMINUM/MAGNESIUM SUSP 30 ML UDC PO PRN (04:59)
[2020-12-08] MEDS ORDERED: MAGNESIUM HYDROXIDE SUSP 30 ML UDC PO PRN (04:59)
[2020-12-08] MEDS ORDERED: ACETAMINOPHEN 325 MG TAB PO PRN (04:59)
[2020-12-08] MEDS ORDERED: POLYETHYLENE (MIRALAX) 17 GM PACK PO PRN (04:59)
[2020-12-08] MEDS ORDERED: ONDANSETRON INJ 2 MG/ML 2 ML VIAL IV PRN (04:59)
[2020-12-08] MEDS: LORazepam 1 MG/2 ML VIAL IV PRN ×3 (05:49→20:36)
[2020-12-08 05:57] LABS: INR 1.1 (0.9-1.1); Prothrombin Time 10.9 Seconds (9.0-12.0)
[2020-12-08 06:35] LABS: Bilirubin Direct 0.4 mg/dl (0-0.2); Bilirubin,Total 1.4 mg/dl (0.2-1); Thyroid Stimulating Hormone 2.06 uIu/ml (0.300-4.500)
[2020-12-08] MEDS ORDERED: GABAPENTIN 800MG ALCOHOL WITHDRAWAL LOAD PO STA (06:55)
--- NOTE | 2020-12-08 07:01 | Billing Data ---
Date of Service December 08, 2020 Coding Level of Care Code 93842 OBS Care - Level 3
[2020-12-08] MEDS ORDERED: GABAPENTIN 400 MG CAP PO ONE (07:15)
--- NOTE | 2020-12-08 07:53 | XRay Report ---
XR chest 1V portable CLINICAL HISTORY: Stroke Like Symptoms COMPARISON STUDY: No previous studies for comparison. FINDINGS: No pneumothorax. No pleural effusion. No large infiltrates or consolidative lesions are seen. Cardiomediastinal silhouette is within normal limits in size. No significant pulmonary vascular congestion.. Osseous structures: Degenerative changes of the spine. IMPRESSION: 1. No acute pulmonary process. ACT 112: Negative or not required by law. The above report was generated using voice recognition software. It may contain grammatical, syntax o r spelling errors. Electronically signed by: Jolie Carrington DO 12/08/2020 7:52 AM
[2020-12-08] MEDS: THIAMINE HCL 100 MG TAB PO SCH (08:01)
[2020-12-08 08:12] LABS: Albumin Level 3.2 gm/dl (3.4-5.0); Bilirubin Direct 0.4 mg/dl (0-0.2); Bilirubin,Total 1.3 mg/dl (0.2-1); Total Protein 7.4 gm/dl (6.4-8.2)
[2020-12-08 08:17] LABS: Platelet Count 60 K/uL (130-400)
--- NOTE | 2020-12-08 08:29 | Electrocardiogram Report ---
Test Reason : Blood Pressure : / mmHG Vent. Rate : 102 BPM Atrial Rate : 102 BPM P-R Int : 166 ms QRS Dur : 092 ms QT Int : 368 ms P-R-T Axes : 070 -73 022 degrees QTc Int : 479 ms Sinus tachycardia Left anterior fascicular block Abnormal ECG When compared with ECG of 15-JUL-2020 09:04, No significant change Confirmed by Elan Lam ([id number]) on 12/08/2020 8:29:23 AM Referred By: REFERRED SELF Confirmed By:Elan Lam
--- NOTE | 2020-12-08 09:56 | CT Scan Report ---
CT head/brain wo con CLINICAL HISTORY: Stroke Like Symptoms COMPARISON STUDY: No previous studies for comparison. TECHNIQUE: Axial CT of the brain is performed from the vertex to the skull base. IV contrast was not administered for this examination. A dose lowering technique was utilized adhering to the principles of ALARA. CT DOSE: 1394.93 mGy.cm FINDINGS: No intra or extra-axial mass lesions are visualized. There is no CT evidence of acute cortical infarc tion. There is no evidence of midline shift. There is no acute hemorrhage. No acute depressed calvar ial fractures are visualized. There is no evidence of pathologic ventricular dilatation. There is no evidence of acute sinusitis IMPRESSION: No acute intracranial hemorrhage, no midline shift or space occupying lesions. ACT 112: Negative or not required by law. The above report was generated using voice recognition software. It may contain grammatical, syntax o r spelling errors. Electronically signed by: Jolie Carrington DO 12/08/2020 9:54 AM
--- NOTE | 2020-12-08 10:03 | CT Scan Report ---
CT angio head w con CLINICAL HISTORY: Stroke Like Symptoms TECHNIQUE: CT angiography of the head was performed in a dynamic helical fashion during intravenous a dministration of 105 cc of Optiray. MIP imaging was performed. A dose lowering technique was utilized adhering to the principles of ALARA. CT DOSE: COMPARISON STUDY: No previous studies for comparison. FINDINGS: Visualized distal aspect of bilateral internal carotid arteries are patent. Right internal middle cerebral and anterior cerebral arteries are patent. Anterior communicating fadia lottie are patent. Hypoplastic bilateral posterior communicating arteries likely represent developmental variant. Distal aspect of bilateral vertebral arteries are patent without focal occlusion or significant steno sis. Basilar artery and bilateral posterior cerebral arteries are patent without focal occlusion or signif icant stenosis. No aneurysmal dilatation or dissection is seen. IMPRESSION: Normal study. ACT 112: Negative or not required by law. The above report was generated using voice recognition software. It may contain grammatical, syntax o r spelling errors. Electronically signed by: Jolie Carrington DO 12/08/2020 10:02 AM
--- NOTE | 2020-12-08 10:09 | Hospitalist Progress Note ---
Date of Service December 08, 2020 Assessment & Plan (1) Pre-syncope: Danny Park is a 45 yo male with PMHx significant for severe alcohol use disorder, depression and anxiety, who was admitted to [facility] on 12/08 for lightheadedness, anxiety, diaphoresis, hypertension and tachycardia in the context of no alcohol for >24 hours. Alcohol Withdrawal Above-mentioned symptoms in the context of abstinence x36 hours as of this morning. - continue AWSS protocol with PRN Ativan - added Gabapentin taper - consider continuing with Gabapentin after discharge to assist with anxiety and sleep in the context of severe alcohol use disorder - Clonidine patch - Thiamine 200mg PO QAM - continue telemetry monitoring Severe AUD - Discussed naltrexone for it's effectiveness in decreasing the amount of drinking. - consider d/cing on oral rx - to eventually switch IM injection if insurance coverage + Anxiety Difficult to assess, given patient's current severe alcohol use. - consider outpatient Gabapentin as mentioned above -? on paxil at home. Sleep Disturbance Likely multifactorial due to alcohol use/anxiety as well as possible RLS/ALEX - consider outpatient sleep study for RLS/ALEX evaluation and treatment Pulmonary Hypertension Mildly enlarged main pulmonary artery noted on CTA neck raising the possibility of primary pulmonary hypertension. There may also be underlying dilated cardiomyopathy 2/2 alcohol use. - TTE ordered in the AM for further evaluation - Should have sleep study as outpatient. Hepatic Steatosis RUQ US showing hepatic steatosis and mild hepatomegaly although no overt cirrhosis --> alcoholic liver disease - f/u as outpatient - encourage alcohol cessation Thrombocytopenia/Transaminitis Platelet count 68 on admission, down to 60 this morning, no signs of active bleeding. AST/ALT mildly elevated and TBili 1.6. Abnormal labs likely due to liver disease although cannot fully r/o hepatitis or tick-borne illness at this time. - Hepatitis panel ordered - pending - Lyme negative, remainder of tick panel pending - trend CBC/CMP Diet: Regular CODE STATUS: Full code DVT ppx: deferred at this time due to thrombocytopenia Dispo: med/surg with tele (2) Anxiety: (3) Alcohol use: Admission and Anticipated Discharge Date Admission Date: December 08, 2020 Supervising Physician Co-Signing Physician Notes Resident Physician Supervision Note: I independently interviewed and examined the patient and verified the sinclair history and physical, reviewed labs and image studies and agree with resident Dr. Goel findings and care plan. Subjective Patient reports quitting alcohol use in October but then starting again in November - he has been drinking at least one large jug of 18% wine every day for more than one month. He admits to a similar amount of daily drinking for "many years" before this. Says that drinking helps to calm him down and is a "de-stressor". Has a desire to cut down only because he wants to be more efficient at work - does not think that alcohol affects his well-being or his relationships. Reports that he has had alcohol withdrawals in the best that are characterized by tremul ousness, severe anxiety and diaphoresis. Review of Systems Review of Systems: See H&P from today for ROS Physical Exam Physical Exam: See H&P from today for PE Results & Data Results & Data ([facility]) Vital Signs (Past 12 Hours) Vital Signs Temp Pulse Pulse Resp BP BP Pulse Ox 12/08/20 07:31 36.6 C 96 H 20 154/94 H 95 12/08/20 05:36 101 H 12/08/20 05:00 36.5 C 89 18 187/103 H 99 12/08/20 04:30 109 H 18 94 12/08/20 04:01 97 H 3 L 92 12/08/20 04:00 104 H 12 176/118 H 92 12/08/20 03:53 113 H 183/113 H 96 12/08/20 03:51 97 H 17 187/127 H 95 12/08/20 03:11 107 H 198/127 H 93 12/08/20 03:00 115 H 25 H 200/145 H 95 12/08/20 02:00 106 H 20 153/100 H 94 12/08/20 01:30 106 H 15 169/102 H 95 12/08/20 01:28 101 H 20 173/107 H 92 12/08/20 01:00 106 H 13 160/111 H 95 12/08/20 00:45 107 H 12 172/110 H 92 12/08/20 00:15 105 H 20 196/123 H 95 12/08/20 00:10 115 H 11 L 98 12/08/20 00:00 103 H 16 199/122 H 96 12/07/20 23:45 104 H 18 203/119 H 96 12/07/20 23:30 110 H 11 L 210/124 H 96 12/07/20 23:16 37.1 C 114 H 17 220/129 H 98 12/07/20 23:15 112 H 15 220/129 H 98 Resident Activity Tracking Resident Involvement: Resident Care Provided Care Provided: Adult Hospital Medicine
--- NOTE | 2020-12-08 10:09 | CT Scan Report ---
CT angio neck with con CLINICAL HISTORY: Stroke Like Symptoms COMPARISON STUDY: No previous studies for comparison. TECHNIQUE: CT angiography was performed from the aortic arch to the skull base. MIP imaging was perfo rmed. The patient was scanned in a dynamic helical fashion during intravenous administration of cc of Optiray. A dose lowering technique was utilized adhering to the principles of ALARA. CT DOSE: Technique: CT angiogram of the carotid and vertebral arteries was obtained using intravenous contrast and 3-D reconstruction. NASCET criteria was utilized. Findings: Adequate opacification of within aortic arch. Multiple enlarged mediastinal lymph nodes. Dilated pulmonary artery which might be seen in pulmonary hypertension. No focal lesions within thyroid. The right carotid revealed no evidence of aneurysm and no evidence of dissection. There is no evidenc e of hemodynamic significant stenosis. The left carotid revealed no evidence of hemodynamic significant stenosis. There is no evidence of an eurysm. There is no evidence of dissection. There is no evidence of hemodynamically significant vertebral stenosis. There is no evidence of verte bral dissection. IMPRESSION: No evidence of hemodynamically significant carotid or vertebral artery stenosis. No evidence of disse ction. Mediastinal lymphadenopathy. Enlarged pulmonary artery which could be seen in pulmonary hypertension. ACT 112: Negative or not required by law. The above report was generated using voice recognition software. It may contain grammatical, syntax o r spelling errors. Electronically signed by: Jolie Carrington DO 12/08/2020 10:08 AM
[2020-12-08] MEDS: CHECK CLONIDINE PATCH PLACEMENT SCH ×2 (11:39→15:49)
--- NOTE | 2020-12-08 11:56 | Ultrasound Report ---
US liver CLINICAL HISTORY: suspected alcoholic liver disease COMPARISON STUDY: No previous studies for comparison. FINDINGS: The liver is echogenic. The liver is also enlarged, measuring 21 cm in maximal sagittal dim ension. No hepatic lesions are identified. Liver is slightly heterogeneous. No gallstones are noted. There is no gallbladder wall thickening. The pancreatic body is normal. Head and tail are obscured. T here is no biliary ductal dilatation. The common bile duct measures 4 mm in caliber. There is no righ t hydronephrosis. IMPRESSION: 1. Hepatic steatosis and mild hepatomegaly. No hepatic lesions identified. Heterogeneous liver paren chyma which may reflect diffuse liver disease. Liver not overtly cirrhotic by sonography. 2. No gallstones or biliary ductal dilatation. ACT 112: Negative or not required by law. Electronically signed by: Solis Metcalf M.D. 12/08/2020 11:55 AM
[2020-12-08 12:57] LABS: Appearance Urine Clear (Clear); Bacteria Urine Automated Negative (Negative); Bilirubin Urine Negative (Negative); Blood Urine Negative (Negative); Cast Urine Automated 0 /lpf (0-5); Color Urine Yellow; Epithelial Cell Urine Auto 0-5 /lpf (0-5); Glucose Urine UA Negative (Negative); Ketones Urine Negative (Negative); Leukocyte Esterase Urine Negative (Negative); Nitrite Urine Negative (Negative); RBC Urine Automated 0-4 /hpf (0-4); Specific Gravity Urine 1.008 (1.000-1.030); Urobilinogen Urine Negative (Negative); WBC Urine Automated 0 /hpf (0-5); pH Urine 8.5 (4.5-7.5)
[2020-12-08 13:02] LABS: Protein Urine Trace (Negative)
[2020-12-08 13:35] LABS: Amphetamines+Metham, Urine Neg (Neg); Barbiturates, Urine Neg (Neg); Benzodiazepine, Urine Neg (Neg); Cocaine, Urine Neg (Neg); MDMA (Ecstacy), Urine Neg (Neg); Methadone, Urine Neg (Neg); Opiate, Urine Neg (Neg); Phencyclidine, Urine Neg (Neg)
[2020-12-08] MEDS: GABAPENTIN 400 MG CAP PO SCH ×2 (13:57→20:38)
[2020-12-09] MEDS: CHECK CLONIDINE PATCH PLACEMENT SCH ×3 (00:03→15:40)
[2020-12-09] MEDS: LORazepam 1 MG/2 ML VIAL IV PRN (00:03)
[2020-12-09] MEDS: GABAPENTIN 400 MG CAP PO SCH ×3 (04:26→20:57)
[2020-12-09 07:29] LABS: Hematocrit (blood only) 48.3 % (42-52); Hemoglobin 16.5 g/dL (14.0-18.0); Mean Corpuscular Hemoglobin 32.9 pg (25-34); Mean Corpuscular Hgb Conc 34.2 g/dL (32-36); Mean Corpuscular Volume 96.2 fL (80-100); RDW Coefficient of Variation 16.3 % (11.5-14.5); RDW Standard Deviation 57.2 fL (36.4-46.3); Red Blood Count 5.02 M/uL (4.7-6.1); White Blood Count 4.56 K/uL (4.8-10.8)
[2020-12-09 07:30] LABS: Mean Platelet Volume 9.7 fL (7.4-10.4); Platelet Count 58 K/uL (130-400)
[2020-12-09 07:47] LABS: Basophils # (auto) 0.01 K/uL (0-0.2); Basophils % (auto) 0.2 %; Eosinophils # (auto) 0.15 K/uL (0-0.5); Eosinophils % (auto) 3.3 %; Immature Granulocytes # (auto) 0.02 K/uL (0.00-0.02); Immature Granulocytes % (auto) 0.4 %; Lymphocytes # (auto) 0.68 K/uL (1.2-3.4); Lymphocytes % (auto) 14.9 %; Monocytes # (auto) 0.62 K/uL (0.11-0.59); Monocytes % (auto) 13.6 %; Neutrophils # (auto) 3.08 K/uL (1.4-6.5); Neutrophils % (auto) 67.6 %
[2020-12-09 07:59] LABS: Albumin Level 3.1 gm/dl (3.4-5.0); BUN Creatinine Ratio 8.6 (10-20); Creatinine Clr Calc Pharmacy 127.5 ml/min; Est GFR (African American) 111.8 ml/min; Est GFR (Non-African American) 96.4 ml/min; Magnesium 2.1 mg/dl (1.8-2.4); Phosphorus 3.7 mg/dl (2.5-4.9); Potassium 3.6 mmol/L (3.5-5.1)
[2020-12-09 08:12] LABS: Albumin Globulin Ratio 0.7 (0.9-2); Bilirubin,Total 1.7 mg/dl (0.2-1); Globulin 4.2 gm/dl (2.5-4.0); Total Protein 7.3 gm/dl (6.4-8.2)
[2020-12-09] MEDS: THIAMINE HCL 100 MG TAB PO SCH (08:21)
[2020-12-09 09:19] LABS: Hepatitis B Surf Ag Rflx Conf Neg (Neg)
[2020-12-09 09:48] LABS: Hepatitis C IgG 13Yrs+Old_Rflx Neg (Neg)
--- NOTE | 2020-12-09 10:28 | Hospitalist Progress Note ---
Date of Service December 09, 2020 Assessment & Plan (1) Pre-syncope: 45yo male with a history EtOH use disorder, depression, and anxiety admitted on 12/08 for lightheadedness, anxiety, diaphoresis, elevated BP and tachycardia. Anxiety, lightheadedness, diaphoresis, tachycardia, elevated BP Differential includes EtOH withdrawal, panic, anxiety, and others Lightheadedness resolved, BP better controlled; patient remains tachycardic, anxious, and with mild diaphoresis Echo 12/09 revealed an EF 65-70%, severe concentric LVH Continue AWSS protocol with ativan Discontinue gabapentin Continue clonidine patch, thiamine Continue telemetry Anxiety, depression Difficult to assess given possible concurrent EtOH withdrawal Patient with delusions expressed during interview on 12/09; concern for ongoing psychotic symptoms Patient's remote experience with paxil also concerning for possible bipolar disorder Psychiatry consult placed; appreciate their insight and recommendations Insomnia Likely multifactorial due to alcohol use, anxiety, possible RLS/ALEX Consider sleep study on an outpatient basis Melatonin qhs Hepatic steatosis Patient with mild AST/ALT elevation, RLQ US shows hepatic steatosis and mild hepatomegaly, no liver cirrhosis; concerning for alcoholic liver disease Follow up outpatient Encourage alcohol cessation Liver dysfunction On admission: platelets 68, Tbili 1.6, AST/ALT mildly elevated; likely 2/2 alcoholic liver dysfunction Follow up labwork to rule out other possibilities (hepatitis panel, tick panel) Trend daily CBC, CMP FEN: regular diet Code status: full code DVT ppx: not indicated due to thrombocytopenia Isolation: none Consults: psychiatry Dispo: med/surg with telemetry Admission and Anticipated Discharge Date Admission Date: December 08, 2020 Supervising Physician Co-Signing Physician Notes I personally examined the patient and verified all sinclair points of history and exam, discussed case, and agree with decision making with Dr Cason Less tremulous than when he came in. Heart rate improving as well. Does admit to anxiety. Vitals noted, in general he is awake and alert laying very still in bed appears somewhat anxious and a little bit hypervigilant but no distress. HEENT normocephalic atraumatic mucous membranes moist. Breathing unlabored no accessory muscle use good effort. Neuro shows a resting tremor that actually improves with intention. No focal neuro deficits. Tremulousnesssuspect anxiety more likely than alcohol withdrawal. Continue to follow into tomorrow to ensure this. Continue supportive care. Appreciate psychiatry inputespecially given some of his expressions of paranoia or delusion. Otherwise as above. Suspect LFTs white count and platelets relate to alcohol/liver disease. Ongoing follow-up for this. Subjective Patient seen and evaluated at bedside this morning. No acute events overnight. Patient feels anxious today and is tremulous. Denies CP, SOB, abdominal pain, nausea, vomiting. Additional history was obtained during conversation this morning. Patient reports drinking the equivalent of 2-3 bottles of dessert wine each week. Patient reports he typically drinks for 2-3 days in a row and then stops before he needs to work. Prior to current episode, patient had been drinking and Wednesday, but had not drank Wednesday through Wednesday as he was working. Patient says most weeks are like this, and patient endorses frequently having weeks when he stops drinking for a few days without resultant withdrawal symptoms. Patient also reports a significant anxiety history. Patient was on paxil 13 years ago, which improved his anxiety; patient also reports he liked it because it made him feel "like he could do anythin\\` ". Patient also felt that paxil made him feel "like I didn't care about anyone else in the world except for myself" and he felt paxil took away his ability to care about friends/family members. This is what led to patient self-discontinuing paxil 13 years ago, around the time of his mother's . Patient works for [employer] and [employer], which he has done for the past few years. Patient reports a four-year history of "being followed by the police". Patient believes law enforcement track his location and his driving speed through his phone. Patient reports "whenever I'm speeding, police show up everywhere, I'll see four or five police officers stationed along my route, or following me, or waiting for me near the place I'm going. If I'm not speeding, I never see a atomic spectroscopist." Patient reports he believes law enforcement secretly own [employer] and use [employer]'s phone data to track individuals' locations and behaviors. Denies AVH, denies SI/HI. Review of Systems Review of Systems: See HPI Physical Exam Physical Exam: Constitutional: no acute distress, slightly anxious-appearing, tremulous HEENT: NCAT, no conjunctival injection, no scleral icterus CV: tachycardic, no murmur appreciated, extremities well-perfused Resp: CTABL, no wheezes/rales/rhonchi appreciated, no increased work of breathing Neuro: AOx4, no focal neurological deficits appreciated Appearance: fairly groomed, wearing hospital gown Behavior: calm, cooperative, eye contact good Mood: "okay, a little stressed" Affect: anxious, congruent with mood Speech: appropriate rate/quantity/volume Thought process: linear, coherent Thought content: usually appropriate to topic of discussion, interview notable for persecutory delusions Cognition: alert, focused, short- and long-term memory grossly intact, a bstraction intact Insight: fair Judgment: fair Results & Data Results & Data ([facility]) Vital Signs (Past 12 Hours) Vital Signs Temp Pulse Resp BP BP Pulse Ox 12/09/20 07:35 36.9 C 95 H 20 149/100 H 93 12/09/20 04:00 36.7 C 93 H 20 159/93 H 96 12/09/20 00:33 148/88 H 12/09/20 00:08 167/112 H 12/08/20 23:48 36.4 C L 86 20 200/128 H 98 Resident Activity Tracking Resident Involvement: Resident Care Provided Care Provided: Adult Hospital Medicine
--- NOTE | 2020-12-09 12:35 | XCELERA ---
[id number]
--- NOTE | 2020-12-09 16:13 | Billing Data ---
Date of Service December 09, 2020 Coding Level of Care Code 18760 Subseq Obs Care Lvl 3
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
[2020-12-10] MEDS: CHECK CLONIDINE PATCH PLACEMENT SCH ×2 (00:33→09:03)
[2020-12-10] MEDS ORDERED: GABAPENTIN 400 MG CAP PO SCH (08:00)
[2020-12-10 08:15] LABS: Albumin Level 3.3 gm/dl (3.4-5.0); BUN Creatinine Ratio 11.1 (10-20); Calcium 9.1 mg/dl (8.5-10.1); Creatinine Clr Calc Pharmacy 118.8 ml/min; Est GFR (African American) 102.6 ml/min; Est GFR (Non-African American) 88.6 ml/min; Potassium 3.7 mmol/L (3.5-5.1)
[2020-12-10 08:29] LABS: Albumin Globulin Ratio 0.7 (0.9-2); Bilirubin,Total 1.2 mg/dl (0.2-1); Globulin 4.4 gm/dl (2.5-4.0); Total Protein 7.7 gm/dl (6.4-8.2)
[2020-12-10 08:42] LABS: Hematocrit (blood only) 48.3 % (42-52); Hemoglobin 16.6 g/dL (14.0-18.0); Mean Corpuscular Hemoglobin 32.8 pg (25-34); Mean Corpuscular Hgb Conc 34.4 g/dL (32-36); Mean Corpuscular Volume 95.5 fL (80-100); Platelet Count 95 K/uL (130-400); RDW Coefficient of Variation 16.2 % (11.5-14.5); RDW Standard Deviation 56.7 fL (36.4-46.3); Red Blood Count 5.06 M/uL (4.7-6.1); White Blood Count 5.96 K/uL (4.8-10.8)
--- NOTE | 2020-12-10 08:58 | Hospitalist Progress Note ---
Date of Service December 10, 2020 Assessment & Plan Admission and Anticipated Discharge Date Admission Date: December 08, 2020 Subjective Patient seen and evaluated at bedside this morning. No acute events overnight. Patient reports sleeping very poorly overnight and is irritated. Patient insists on going home today. Denies anxiety, AVH, SI/HI, CP, SOB, nausea, vomiting, or other symptoms. Patient is refusing meds today. Results & Data Results & Data ([facility]) Vital Signs (Past 12 Hours) Vital Signs Temp Pulse Pulse Resp BP Pulse Ox 12/10/20 07:31 36.5 C 87 18 138/93 98 12/10/20 03:37 36.9 C 90 18 142/81 H 95 12/09/20 23:00 37.0 C 91 H 18 142/88 H 98 12/09/20 22:21 87
[2020-12-10] MEDS: THIAMINE HCL 100 MG TAB PO SCH (09:03)
[2020-12-10 09:18] LABS: Basophils # (auto) 0.01 K/uL (0-0.2); Basophils % (auto) 0.2 %; Eosinophils # (auto) 0.21 K/uL (0-0.5); Eosinophils % (auto) 3.5 %; Immature Granulocytes # (auto) 0.02 K/uL (0.00-0.02); Immature Granulocytes % (auto) 0.3 %; Lymphocytes # (auto) 1.34 K/uL (1.2-3.4); Lymphocytes % (auto) 22.5 %; Monocytes # (auto) 0.87 K/uL (0.11-0.59); Monocytes % (auto) 14.6 %; Neutrophils # (auto) 3.51 K/uL (1.4-6.5); Neutrophils % (auto) 58.9 %
--- NOTE | 2020-12-10 10:25 | Discharge Summary ---
Date of Service December 10, 2020 Admission HPI Per Admitting Provider Danny Park is a 45-year-old male with past medical history significant for anxiety and depression; who presents for concerns of multiple episodes of near syncopal events without falling last night. Endorses that he has had similar kind of symptoms once before, approximately 2 weeks ago, this episode occurred following working out at the gym taking a hot shower and then attempting to recover on a hydrobed; at the time his symptoms resolved relatively quickly, with him needing to sit up and control his breathing for about 20 seconds. Up until last night had no further episodes like this. Last night, returned from buying food at the store and was laying in his car watching some videos on his phone when he realized that several hours had passed by and quickly sat upright in order to get out of the car, at that point he felt slightly off- kilter/unbalanced similar to the original episode, took about 2030 seconds taking slow deep breaths and felt like this resolved. Then upon getting out of his (what he notes as notably warm car) he was standing by the side of his car when a cold breeze hit him and he became very dizzy with noted nausea, and feeling of unsteadiness. Following this recurring he began to worry that he would continue to have the symptoms and if he was continuing to have these things that they might represent that he is dying sometime soon. Endorses that while he does drink alcohol this is typically in a 2-3 beer a day capacity, with maybe once a week having a bottle of wine while he is watching movies or laying around within his house. Endorses that while he used to drink vodka over 2 to 3 days he has not done this in many months. Has been trying to cope with his anxiety through utilization of the gym more frequently lately, however on stressful days will still have the bottle of wine. States that previously, before he started going to the gym, his main coping mechanism would be through alcohol; previously he had been on antidepressant/antianxiety medications that he would take daily and recalls that when he was on these medications he felt "the best I had ever been" noted that he was having much less anxiousness with being around other people and was able to be more social without complication, however stopped taking these medications because of concerns of increasing forgetfulness and blunted mood. States that his last drink was approximately 24 hours ago. In the ED, was notably diaphoretic with apparent anxiousness and tremulousness. Received two 1 mg doses of Ativan with no improvement of his symptoms but improvement of his vital signs. Was started on a clonidine patch, and was continuing to have the above symptoms. Admission Exam Per Admitting Provider Constitutional: WD/WN, vitals as above + diaphoretic Eyes: PERRL, conjunctivae normal, anicteric sclerae Respiratory: normal respiratory effort, lungs clear to auscultation Auscultation: no crackles, no rales, no rhonchi and no wheezes Cardiovascular: Rate/Rhythm: regular rate and regular rhythm Heart Sounds: no gallop, no murmur and no cardiac rub Vessels: normal peripheral pulses; no JVD Extremities: no edema Gastrointestinal (Abdomen): Inspection/Auscultation: normal bowel sounds; abdomen not distended Percussion/Palpation: abdomen soft; abdomen nontender and no guarding Musculoskeletal: no cyanosis or clubbing, extremities motor strength 5/5 Skin: no rashes, warm and dry Neurologic: PERRL, EOMI, accommodation nl, no face palsy, no dysarthria CN's II-XI intact bilaterally and moves all extremities Psychiatric: Orientation: alert and oriented x 3 Principal Diagnosis Anxiety Discharge Exam Constitutional: anxious-appearing, laying in bed HEENT: NCAT, no conjunctival injection, no scleral icterus CV: regular rhythm, no murmur appreciated, extremities well-perfused Resp: CTABL, no wheezes/rales/rhonchi appreciated, no increased work of breathing MSK: no gross deformities appreciated Skin: warm, dry, no rash appreciated Neuro: AOx4, no focal neurological deficits appreciated Appearance: well-groomed, dressed in hospital gown Behavior: fidgety, poor eye contact, shifting gaze Mood: "fine" Affect: anxious, incongruent with mood Speech: appropriate rate/quantity/volume Thought process: linear, coherent Thought content: appropriate to topic of discussion, denies SI/HI Cognition: alert, focused, long-term memory grossly intact, fair short-term memory Insight: fair Judgment: fair Discharge Data Allergies Allergy/AdvReac Type Severity Reaction Status Date / Time Penicillins Allergy Mild Hives Verified 12/08/20 02:25 Consultations 12/08/20 01:53 ED Decision to Admit Stat 12/09/20 09:25 Consult Psychiatry Routine Ordered Studies 12/07/20 23:51 CT angio head w con Urgent CT angio neck with con Urgent CT head/brain wo con Urgent 12/08/20 09:43 US liver Urgent Hospital Course (1) Pre-syncope: Anxiety, lightheadedness, diaphoresis, tachycardia, elevated BP Patient was started on the AWSS protocol for alcohol withdrawal, but over time, patient's symptoms seemed more consistent with anxiety than alcohol withdrawal. Patient's symptoms were treated with gabapentin and ativan. Patient's tachycardia resolved on hospital day two. Patient was discharged on hospital day three, per his request, in stable condition. Patient was hemodynamically stable during his hospitalization. Anxiety, depression, delusions Patient endorsed a long history of anxiety and depression symptoms. Patient also endorsed persecutory delusions. Psychiatry was consulted and felt patient would likely benefit from antipsychotic therapy. Patient declined medical treatment upon discharge and said he planned to follow up on an outpatient basis. Liver dysfunction On admission, patient had a mild AST/ALT elevation, elevated Tbili, thrombocytopenia, and abdominal US showed hepatic steatosis and mild hepatomegaly without liver cirrhosis. Symptoms were felt to be likely secondary to chronic alcohol use. Patients lab values improved during hospitalization. Patient was discharged per his request on hospital day three. Total Time Total Time Spent Total Time Spent (In Minutes): <30 Discharge Plan Discharge Items Patient Disposition: Home - Self-Care Reason For Visit: PRE-SYNCOPE Discharge Diagnosis: Anxiety Activity: Resume your previous activity Non-emergency contact: Primary Care Provider Call non-emergency contact if: your symptoms worsen Follow-up/Referrals: Wallace Cason MD [Resident] - 12/24/20 10:00 am Diet: Regular Addtl Attending Provider Instructions: You were admitted to the hospital for anxiety and fast heart rate. You were treated with medicine. We believe you would benefit from additional treatment of your anxiety with therapy in addition to medicine. Below you will find information regarding setting up care with a primary care physician. A discharge summary will be sent to your primary care physician to ensure continuity of care. Please bring this discharge summary with you to your next office appointment so that your provider can review it at that time. Follow-up appointments: You should make an appointment within the next week with Dr. Wallace Cason. His office is right next to [facility], at [facility] in [place]. The office phone number is [phone]. Please give the office a call to set up an appointment. Keep all your follow-up appointments as already scheduled. If you cannot make an appointment, notify your provider. Medications: Your medication list has been reviewed and reconciled upon discharge to ensure accuracy and continuity of care. An updated list of all your medications is included with your hospital discharge paperwork. Take your medications as instructed; do not skip a dose of your medicines. Make sure all of your doctors know every medicine you are taking (including donj-sce-iwblfzk medicines, vitamins, and supplements). Call your primary care provider before taking any new medicines (including dmou-lmm-lhyafcz medicines, vitamins, and supplements), because some of these may interact with your current medications, or may make your symptoms worse. Tell your primary care provider if you cannot afford your medications. CONTACT YOUR PRIMARY CARE PROVIDER if you experience any of the following: Worsening dizziness Anxiety Tremor Difficulty following your treatment plan, or difficulty taking medications CALL 911 OR GO TO THE EMERGENCY DEPARTMENT if you experience any of the following: Sudden, severe abdominal pain or nausea/vomiting Severe chest pain, or chest pain that radiates (moves) to your jaw or arm Sudden, severe shortness of breath or difficulty breathing Thank you for allowing us to participate in your care. Pending Studies at Discharge: No Stand-Alone Forms: My [facility], Smoking Cessation Medications and DC Order Prescriptions: Continued multivitamin Tablet 1 tab PO DAILY RF: 0 vitamin B complex Tablet 1 tab PO DAILY RF: 0 cholecalciferol (vitamin D3) [Vitamin D3] 25 mcg (1,000 unit) Tablet 0 mcg PO DAILY RF: 0 vitamin E 100 unit Tablet 0 unit PO DAILY RF: 0 Discharge Orders: Discharge Order (Routine); Ordered 12/10/20 Ordered By: Wallace Cason Admission Data Admit Date/Time: 12/08/20 03:51 Attending Provider: Rodri Black Admit Provider: Jose Munoz Primary Care Provider: PCP,NO Other Providers: Melinda Butcher ; Shanelle Baltazar ; Merissa Asif ; Dr Justice ; Tita Goldberg ; Gal Ashley Other Interventions: Discharge Summary Assessment (RN) Last Done: 12/10/20 10:18 Supervising Physician Co-Signing Physician Notes I personally examined the patient and verified all sinclair points of history and exam, discussed case, and agree with decision making with Dr Cason Really wants to go home. Feels up to going home. Thinks that a lot of his problems may stem from social anxiety, willing to seek help for this. Vitals noted, in general he is awake and alert laying very still in bed appears somewhat anxious and a little bit hypervigilant but no distress. HEENT normocephalic atraumatic mucous membranes moist. Breathing unlabored no accessory muscle use good effort. Neuro shows a resting tremor that actually improves with intention. No focal neuro deficits. Tremulousnesssuspect anxiety more likely than alcohol withdrawal. Definitely stable for home, symptoms have essentially resolved. Close outpatient follow-up and counseling for anxiety/ongoing psychiatry follow-up. Otherwise as above. Suspect LFTs white count and platelets relate to alcohol/liver disease. Should have ongoing follow-up for this. Resident Activity Tracking Resident Involvement: Resident Care Provided Care Provided: Adult Hospital Medicine
[2020-12-10 12:38] LABS: Hepatitis A Antibody IgM NON-REACTIVE (NON-REACTIVE); Hepatitis B Core Antibody IgM NON-REACTIVE (NON-REACTIVE)
--- NOTE | 2020-12-10 16:48 | Billing Data ---
Date of Service December 10, 2020 Coding Level of Care Code 51526 OBS Care - Discharge
[2020-12-11] MEDS ORDERED: GABAPENTIN 400 MG CAP PO SCH (20:00)
[2020-12-13 01:21] LABS: Babesia microti DNA Not Detected (Not Detected); Ehrlichia chaff DNA Bld Not Detected (Not Detected)
[2020-12-15] MEDS ORDERED: cloNIDine HCL 0.3 MG/24 HR TRANSDERM SYS TD SCH (06:00)
== END 2020-12-10 12:02 | disposition home or self-care (01) ==
LOC: ED 23:11 → 2N 23:11 → SUATTDRO 12-08 03:51 → 2N 12-08 04:33

== ENCOUNTER 2021-01-27 15:17 | Observation (INO) ==
[2021-01-27] MEDS ORDERED: SODIUM CHLORIDE 0.9% 1000ML 1,000 ML IV SCH (15:45)
[2021-01-27] MEDS ORDERED: LORazepam 1 MG/2 ML VIAL IV STA ×2 (15:45→16:25)
[2021-01-27] MEDS ORDERED: MULTI-VITAMIN INFUSION 10 ML, THIAMINE HCL 100 MG, FOLIC ACID 1 MG in SODIUM CHLORIDE 0... IV ONE (15:45)
[2021-01-27 15:53] LABS: Hematocrit (blood only) 48.4 % (42-52); Hemoglobin 17.2 g/dL (14.0-18.0); Mean Corpuscular Hemoglobin 32.6 pg (25-34); Mean Corpuscular Hgb Conc 35.5 g/dL (32-36); Mean Corpuscular Volume 91.7 fL (80-100); RDW Coefficient of Variation 14.8 % (11.5-14.5); RDW Standard Deviation 49.7 fL (36.4-46.3); Red Blood Count 5.28 M/uL (4.7-6.1); White Blood Count 5.82 K/uL (4.8-10.8)
--- NOTE | 2021-01-27 16:07 | Emergency Department Note ---
History of Present Illness General Chief complaint: Dizziness Stated complaint: DIZZINESS Source: patient, RN notes reviewed and old records reviewed Mode of arrival: ambulatory Limitations: no limitations History of Present Illness This patient is a 45-year-old male who comes in after feeling dizzy and sweaty. The nurses came and got me as they were concerned about him. He denies any chest pain or shortness of breath. He had worked out at the gym and felt fine he did feel little dizzy at times there is no trauma. He has had no fall. He denies any shortness of breath. No focal numbness or weakness he describes it is more of like a passing out rather than a vertigo type symptom. He denies any blood or melena stool. No abdominal pain. He does have a history of drinking alcohol and said he went on a binge over the last couple days his last drink was yesterday. Looking back through his records he has been here before for similar complaints. He took his Ativan 0.5 mg this morning but did not take his blood pressure medicine. Home Medications Medication Instructions Recorded Confirmed Type cholecalciferol (vitamin D3) 25 0 mcg PO DAILY 12/08/20 01/27/21 History mcg (1,000 unit) tablet (Vitamin D3) multivitamin 1 tab PO DAILY 12/08/20 01/27/21 History vitamin B complex 1 tab PO DAILY 12/08/20 01/27/21 History vitamin E 400 unit capsule 400 unit PO DAILY 12/10/20 01/27/21 History lorazepam 1 mg tablet (Ativan) 0.5 mg PO Q6H PRN #6 tab 12/11/20 01/27/21 Rx buspirone 5 mg tablet 5 mg PO TID 01/27/21 01/27/21 History losartan 25 mg tablet 25 mg PO DAILY 01/27/21 01/27/21 History Allergies Allergy/AdvReac Type Severity Reaction Status Date / Time Penicillins Allergy Mild Hives Verified 01/27/21 15:54 Past Med/Surg History Medical History Alcohol abuse Alcohol withdrawal Anxiety Depression Surgical History (Updated 12/08/20 @ 06:52 by Melinda Butcher DO) History of tonsillectomy Social History Smoking Status: Never smoker Second Hand Exposure: No; Hx Alcohol Use: Yes Alcohol type: wine Hx Substance Use: No Preferred Language: Welsh Communication Ability: Effective 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 Beliefs That Will Affect Care: None Current Living Situation: Alone Feels Safe at Home: Yes Assistive Devices: None Review of Systems A total of 10 systems reviewed and were otherwise negative Physical Exam Vital Signs Vital Signs - 24 hr 01/27/21 15:29 01/27/21 15:43 01/27/21 16:22 Temperature 36.6 C Temperature Source Temporal Artery Scan Pulse Rate 119 H 123 H 99 H Pulse Rate [Finger] Pulse Rate from SpO2 Sensor 123 H 100 H Pulse Rhythm Regular Pulse Strength Normal Respiratory Rate 18 16 16 Respiratory Effort / Characteristics Non-Labored Spontaneous Respiratory Depth Normal Blood Pressure 193/114 H 177/125 H 178/115 H Blood Pressure [Left Arm] Blood Pressure Mean 140 142 136 Blood Pressure Mean [Left Arm] Pulse Oximetry 96 97 95 Oxygen Delivery Method Room Air Sepsis Recent Fever Within 48 Hours No Sepsis New/Unexplained Change in Mental Status No Sepsis Action Taken by Nursing No Action Required 01/27/21 16:30 01/27/21 16:35 01/27/21 17:00 Temperature Temperature Source Pulse Rate 101 H 104 H Pulse Rate [Finger] Pulse Rate from SpO2 Sensor 101 H 104 H Pulse Rhythm Pulse Strength Respiratory Rate 18 25 H Respiratory Effort / Characteristics Respiratory Depth Blood Pressure 191/107 H 201/121 H Blood Pressure [Left Arm] Blood Pressure Mean 135 147 Blood Pressure Mean [Left Arm] Pulse Oximetry 92 95 92 Oxygen Delivery Method Room Air Sepsis Recent Fever Within 48 Hours Sepsis New/Unexplained Change in Mental Status Sepsis Action Taken by Nursing 01/27/21 17:22 01/27/21 17:30 01/27/21 17:37 Temperature Temperature Source Pulse Rate 105 H Pulse Rate [Finger] 106 H Pulse Rate from SpO2 Sensor 108 H Pulse Rhythm Pulse Strength Respiratory Rate 16 16 Respiratory Effort / Characteristics Respiratory Depth Blood Pressure 183/122 H Blood Pressure [Left Arm] 197/127 H Blood Pressure Mean 142 Blood Pressure Mean [Left Arm] 150 Pulse Oximetry 95 96 96 Oxygen Delivery Method Room Air Room Air Sepsis Recent Fever Within 48 Hours Sepsis New/Unexplained Change in Mental Status Sepsis Action Taken by Nursing 01/27/21 18:00 01/27/21 18:30 01/27/21 19:00 Temperature Temperature Source Pulse Rate 108 H 108 H 93 H Pulse Rate [Finger] Pulse Rate from SpO2 Sensor 111 H 93 H Pulse Rhythm Pulse Strength Respiratory Rate 17 13 15 Respiratory Effort / Characteristics Respiratory Depth Blood Pressure 195/115 H 210/136 H 203/112 H Blood Pressure [Left Arm] Blood Pressure Mean 141 160 142 Blood Pressure Mean [Left Arm] Pulse Oximetry 98 97 Oxygen Delivery Method Sepsis Recent Fever Within 48 Hours Sepsis New/Unexplained Change in Mental Status Sepsis Action Taken by Nursing General: Well developed well nourished somewhat diaphoretic middle-age male who appears anxious and shaky but in no acute respiratory distress, breathing comfortably on room air. Normal speech, nonslurred HEENT: Normal cephalic atraumatic. Pupils are equal round and reactive to light. Extraocular movements are intact. Oropharynx is pink with moist mucous membranes. No swelling of the mouth lips or tongue. Neck: Supple with a midline trachea. No meningeal signs or stiffness, no JVD or bruits. No Stridor. Chest: Clear to auscultation bilaterally. No wheezes or rhonchi. No increased work of breathing. Heart: Tachycardic but regular rate and rhythm without murmurs or gallops. Abdomen: Soft nontender, nondistended without rebound guarding or rigidity. Extremities: No cyanosis clubbing or edema. No calf tenderness or assymetry Spine/Back. Non tender to palpation. No CVA tenderness Skin: Good turgor without rashes. Neurologic exam: Cranial nerves two through 12 are intact. Motor and sensation are intact and symmetrical throughout. He is shaky Course Administered Medications Losartan Potassium (Losartan Potassium 25 Mg Tab) 25 mg PO DAILY LAN Stop: 02/26/21 19:31 Last Admin: 01/27/21 19:55 Dose: 25 mg Documented by: [id number] Discontinued Medications Sodium Chloride (Nss 1000ml) 1,000 mls @ 999 mls/hr IV .Q1H1M LAN Stop: 01/27/21 16:45 Last Infusion: 01/27/21 17:25 Dose: 0 mls/hr Documented by: [id number] Admin: 01/27/21 16:00 Dose: 999 mls/hr Documented by: [id number] Lorazepam (Ativan) 1 mg in 2 mls @ 2 mls/min IV NOW STA Stop: 01/27/21 15:46 Last Admin: 01/27/21 15:59 Dose: 2 mls/min Documented by: [id number] Multivitamins 10 ml/ Thiamine HCl 100 mg/ Folic Acid 1 mg/Sodium Chloride 1,011.2 mls @ 1,011.2 mls/hr IV .Q1H ONE Stop: 01/27/21 16:44 Last Infusion: 01/27/21 17:25 Dose: 0 mls/hr Documented by: [id number] Admin: 01/27/21 16:22 Dose: 1,011.2 mls/hr Documented by: [id number] Lorazepam (Ativan) 1 mg in 2 mls @ 2 mls/min IV NOW STA Stop: 01/27/21 16:26 Last Admin: 01/27/21 16:32 Dose: 2 mls/min Documented by: [id number] Medical Decision Making Differential Diagnosis Arrhythmia, acute coronary syndrome, dehydration, sepsis, electrolyte or metabolic abnormality, alcohol withdrawal, trauma, anemia, anxiety Medical Records Attestation: I reviewed the patient's medical records. Home Medications Current Medication List: was personally reviewed by me Laboratory Data Attestation: I reviewed the patient's lab results. Result diagrams: 01/27/21 15:40 01/27/21 15:40 Lab Results 01/27/21 01/27/21 01/27/21 Range/Units 15:40 15:40 15:40 WBC 5.82 (4.8-10.8) K/uL RBC 5.28 (4.7-6.1) M/uL Hgb 17.2 (14.0-18.0) g/dL Hct 48.4 (42-52) % MCV 91.7 (80-100) fL MCH 32.6 (25-34) pg MCHC 35.5 (32-36) g/dL RDW Std Deviation 49.7 H (36.4-46.3) fL RDW Coeff of Theron 14.8 H (11.5-14.5) % Plt Count 94 L (130-400) K/uL MPV 9.5 (7.4-10.4) fL Immature Gran % (Auto) 0.3 % Neut % (Auto) 70.7 % Lymph % (Auto) 13.4 % Moody % (Auto) 14.9 % Eos % (Auto) 0.5 % Baso % (Auto) 0.2 % Neut # (Auto) 4.11 (1.4-6.5) K/uL Lymph # (Auto) 0.78 L (1.2-3.4) K/uL Moody # (Auto) 0.87 H (0.11-0.59) K/uL Eos # (Auto) 0.03 (0-0.5) K/uL Baso # (Auto) 0.01 (0-0.2) K/uL Immature Gran # (Auto) 0.02 (0.00-0.02) K/uL Platelet Estimate Decreased L (Normal) Polychromasia 1+ PT 10.2 (9.0-12.0) Seconds INR 1.0 (0.9-1.1) APTT 24.6 (21.0-31.0) Seconds PTT Ratio 0.9 Sodium 136 (136-145) mmol/L Potassium 3.8 (3.5-5.1) mmol/L Chloride 101 (98-107) mmol/L Carbon Dioxide 24 (21-32) mmol/L Anion Gap 11.0 (3-11) BUN 8 (7-18) mg/dl Creatinine 1.10 (0.6-1.4) mg/dl Est Cr Clr Drug Dosing Not Reportable Est GFR ( Amer) 94.8 ml/min Est GFR (Non-Af Amer) 81.8 ml/min BUN/Creatinine Ratio 7.3 L (10-20) Glucose 160 H (70-99) mg/dl POC Glucose (70-99) mg/dl Calcium 9.6 (8.5-10.1) mg/dl Magnesium 1.8 (1.8-2.4) mg/dl Total Bilirubin 1.1 H (0.2-1) mg/dl AST 53 H (15-37) U/L ALT 54 (12-78) U/L Alkaline Phosphatase 105 (45-117) U/L Troponin I < 0.015 (0-0.045) ng/ml Total Protein 9.1 H (6.4-8.2) gm/dl Albumin 4.5 (3.4-5.0) gm/dl Globulin 4.6 H (2.5-4.0) gm/dl Albumin/Globulin Ratio 1.0 (0.9-2) TSH 1.250 (0.300-4.500) uIu/ml Urine Color Urine Appearance (Clear) Urine pH (4.5-7.5) Ur Specific [place] (1.000-1.030) Urine Protein (Negative) Urine Glucose (UA) (Negative) Urine Ketones (Negative) Urine Blood (Negative) Urine Nitrite (Negative) Urine Bilirubin (Negative) Urine Urobilinogen (Negative) Ur Leukocyte Esterase (Negative) Urine WBC (Auto) (0-5) /hpf Urine RBC (Auto) (0-4) /hpf U Hyaline Cast (Auto) (0-5) /lpf U Epithel Cells (Auto) (0-5) /lpf Urine Bacteria (Auto) (Negative) Ethyl Alcohol mg/dL (0-3) mg/dl COVID-19 Eval Order SARS-CoV-2 (PCR) (Negative) 01/27/21 01/27/21 01/27/21 Range/Units 15:43 16:22 18:05 WBC (4.8-10.8) K/uL RBC (4.7-6.1) M/uL Hgb (14.0-18.0) g/dL Hct (42-52) % MCV (80-100) fL MCH (25-34) pg MCHC (32-36) g/dL RDW Std Deviation (36.4-46.3) fL RDW Coeff of Theron (11.5-14.5) % Plt Count (130-400) K/uL MPV (7.4-10.4) fL Immature Gran % (Auto) % Neut % (Auto) % Lymph % (Auto) % Moody % (Auto) % Eos % (Auto) % Baso % (Auto) % Neut # (Auto) (1.4-6.5) K/uL Lymph # (Auto) (1.2-3.4) K/uL Moody # (Auto) (0.11-0.59) K/uL Eos # (Auto) (0-0.5) K/uL Baso # (Auto) (0-0.2) K/uL Immature Gran # (Auto) (0.00-0.02) K/uL Platelet Estimate (Normal) Polychromasia PT (9.0-12.0) Seconds INR (0.9-1.1) APTT (21.0-31.0) Seconds PTT Ratio Sodium (136-145) mmol/L Potassium (3.5-5.1) mmol/L Chloride (98-107) mmol/L Carbon Dioxide (21-32) mmol/L Anion Gap (3-11) BUN (7-18) mg/dl Creatinine (0.6-1.4) mg/dl Est Cr Clr Drug Dosing Est GFR ( Amer) ml/min Est GFR (Non-Af Amer) ml/min BUN/Creatinine Ratio (10-20) Glucose (70-99) mg/dl POC Glucose 155 H (70-99) mg/dl Calcium (8.5-10.1) mg/dl Magnesium (1.8-2.4) mg/dl Total Bilirubin (0.2-1) mg/dl AST (15-37) U/L ALT (12-78) U/L Alkaline Phosphatase (45-117) U/L Troponin I (0-0.045) ng/ml Total Protein (6.4-8.2) gm/dl Albumin (3.4-5.0) gm/dl Globulin (2.5-4.0) gm/dl Albumin/Globulin Ratio (0.9-2) TSH (0.300-4.500) uIu/ml Urine Color Yellow Urine Appearance Clear (Clear) Urine pH 8.5 H (4.5-7.5) Ur Specific [place] 1.009 (1.000-1.030) Urine Protein 1+ H (Negative) Urine Glucose (UA) Negative (Negative) Urine Ketones Negative (Negative) Urine Blood Negative (Negative) Urine Nitrite Negative (Negative) Urine Bilirubin Negative (Negative) Urine Urobilinogen Negative (Negative) Ur Leukocyte Esterase Negative (Negative) Urine WBC (Auto) 1-5 (0-5) /hpf Urine RBC (Auto) 0-4 (0-4) /hpf U Hyaline Cast (Auto) 0 (0-5) /lpf U Epithel Cells (Auto) 0-5 (0-5) /lpf Urine Bacteria (Auto) Negative (Negative) Ethyl Alcohol mg/dL < 3.0 (0-3) mg/dl COVID-19 Eval Order SARS-CoV-2 (PCR) (Negative) 01/27/21 01/27/21 Range/Units 18:13 18:13 WBC (4.8-10.8) K/uL RBC (4.7-6.1) M/uL Hgb (14.0-18.0) g/dL Hct (42-52) % MCV (80-100) fL MCH (25-34) pg MCHC (32-36) g/dL RDW Std Deviation (36.4-46.3) fL RDW Coeff of Theron (11.5-14.5) % Plt Count (130-400) K/uL MPV (7.4-10.4) fL Immature Gran % (Auto) % Neut % (Auto) % Lymph % (Auto) % Moody % (Auto) % Eos % (Auto) % Baso % (Auto) % Neut # (Auto) (1.4-6.5) K/uL Lymph # (Auto) (1.2-3.4) K/uL Moody # (Auto) (0.11-0.59) K/uL Eos # (Auto) (0-0.5) K/uL Baso # (Auto) (0-0.2) K/uL Immature Gran # (Auto) (0.00-0.02) K/uL Platelet Estimate (Normal) Polychromasia PT (9.0-12.0) Seconds INR (0.9-1.1) APTT (21.0-31.0) Seconds PTT Ratio Sodium (136-145) mmol/L Potassium (3.5-5.1) mmol/L Chloride (98-107) mmol/L Carbon Dioxide (21-32) mmol/L Anion Gap (3-11) BUN (7-18) mg/dl Creatinine (0.6-1.4) mg/dl Est Cr Clr Drug Dosing Est GFR ( Amer) ml/min Est GFR (Non-Af Amer) ml/min BUN/Creatinine Ratio (10-20) Glucose (70-99) mg/dl POC Glucose (70-99) mg/dl Calcium (8.5-10.1) mg/dl Magnesium (1.8-2.4) mg/dl Total Bilirubin (0.2-1) mg/dl AST (15-37) U/L ALT (12-78) U/L Alkaline Phosphatase (45-117) U/L Troponin I (0-0.045) ng/ml Total Protein (6.4-8.2) gm/dl Albumin (3.4-5.0) gm/dl Globulin (2.5-4.0) gm/dl Albumin/Globulin Ratio (0.9-2) TSH (0.300-4.500) uIu/ml Urine Color Urine Appearance (Clear) Urine pH (4.5-7.5) Ur Specific [place] (1.000-1.030) Urine Protein (Negative) Urine Glucose (UA) (Negative) Urine Ketones (Negative) Urine Blood (Negative) Urine Nitrite (Negative) Urine Bilirubin (Negative) Urine Urobilinogen (Negative) Ur Leukocyte Esterase (Negative) Urine WBC (Auto) (0-5) /hpf Urine RBC (Auto) (0-4) /hpf U Hyaline Cast (Auto) (0-5) /lpf U Epithel Cells (Auto) (0-5) /lpf Urine Bacteria (Auto) (Negative) Ethyl Alcohol mg/dL (0-3) mg/dl COVID-19 Eval Order Covid19 at [facility] SARS-CoV-2 (PCR) NEGATIVE (Negative) Imaging Data Attestation: I personally reviewed and interpreted this imaging study as follows: My Impression: Chest x-rayno acute infiltrate, failure, pneumothorax seen Left knee x-rayno fracture or dislocation seen acutely Radiologist's Impression: Chest X-Ray 01/27/21 15:46 XR chest 1V portable CLINICAL HISTORY: weakness COMPARISON STUDY: Chest radiograph December 10, 2020. FINDINGS: Lung volumes are normal. Lungs are clear. There is no pneumothorax or pleural effusion. Cardiac size is normal. Mediastinal contours are stable. Mild upper mediastinal widening is unchanged. There is no evidence for pulmonary edema. IMPRESSION: No acute cardiopulmonary findings. ACT 112: Negative or not required by law. Electronically signed by: Solis Metcalf M.D. 01/27/2021 4:09 PM Knee X-Ray 01/27/21 17:20 XR knee LT 1 or 2V routine HISTORY: 45 years-old Male left knee pain chronic left knee pain COMPARISON: None TECHNIQUE: 3 views of the left knee FINDINGS: Spurring of the tibial tuberosity. Trace joint effusion. No acute fracture, dislocation or significant joint space narrowing. IMPRESSION: Trace joint effusion without acute fracture. ACT 112: Negative or not required by law. The above report was generated using voice recognition software. It may contain grammatical, syntax or spelling errors. Electronically signed by: Reyes Ash M.D. 01/27/2021 5:56 PM ECG Data Attestation: I personally reviewed and interpreted this ECG as follows: Indication: + toxicologic and + weakness Rate (beats per minute): 116 Rhythm: + sinus tachycardia ECG Intervals/blocks: + Left anterior fascicular block, + Incomplete right bundle branch block, + Normal QRS and + Normal QT ECG [place]: + Normal ECG ST segments: + Normal ST segments ECG Findings: no PACs or no PVCs Comparison ECG Date: from (01/09/21) Change: no significant change MDM Narrative This patient comes in as described above. He was placed on a cardiac exercise physiologist in V2. The nurses came and got me as they were concerned about him being diaphoretic and shaky. I looked at his EKG there is nothing to suggest acute STEMI or significant arrhythmia, he is tachycardic when I look at him he is diaphoretic and shaky. He had no trauma he has no other complaints besides feeling lightheaded. IV access was established and we checked the blood sugar was in the 150s. he was hydrated with a 1 L IV normal saline bolus. I did give him Ativan 1 mg IV. This should treat any potential alcohol withdrawal or also vertigo and anxiety. Looking back through his chart he is present several times with this he did have binge drinking and I think is probably withdrawing but he does need a full work-up to rule out other etiologies. He tells me is no history of seizures but I did order seizure pads as a precaution. I also ordered a banana bag IV. When checked on him he was feeling a lot better after the Ativan I did give him additional 1 mg IV as he was still hypertensive and tachycardic although improved. He did not take his blood pressure medicine this morning either. His EKG is nonischemic appearing and his troponin is negative. Chest x-ray was unremarkable , he has no significant electrolyte or metabolic abnormalities. Alcohol level was 0. I think this most likely is from withdrawal. He is willing to come into the hospital for further treatment and evaluation. I have consulted the [facility] hospitalist group/residents to come in and see him. He started complain of knee pain which he says he had since childhood, he asked x-ray did an x-ray he was complaint anterior knee pain it is not red or warm on exam. There is no calf or posterior tenderness . he is neurologically neurovascular intact. X-ray does not show any fracture or dislocation. Will be admitted for further treatment and evaluation. Impression & Plan Alcohol withdrawal, Anxiety, Alcohol abuse, Pre-syncope, Lab test negative for COVID-19 virus Discharge Plan Visit Data Chief Complaint: Dizziness Stated Complaint: DIZZINESS ED Provider: Sven Rose Discharge Problem: Alcohol withdrawal, Anxiety, Alcohol abuse, Pre-syncope, Lab test negative for COVID-19 virus Forms Stand Alone Forms: My [facility] SNADEC Prescriptions Prescriptions: No Action vitamin E 400 unit Capsule 400 unit PO DAILY RF: 0 lorazepam [Ativan] 1 mg tablet 0.5 mg PO Q6H PRN (Reason: anxiety) Qty: 6 RF: 0 buspirone 5 mg tablet 5 mg PO TID RF: 0 losartan 25 mg tablet 25 mg PO DAILY RF: 0 multivitamin Tablet 1 tab PO DAILY RF: 0 vitamin B complex Tablet 1 tab PO DAILY RF: 0 cholecalciferol (vitamin D3) [Vitamin D3] 25 mcg (1,000 unit) Tablet 0 mcg PO DAILY RF: 0 Referrals Referrals: PCP,NO [Primary Care Provider] - Discharge Problem: Alcohol withdrawal Qualifiers: Complication of substance-induced condition: uncomplicated Qualified Code(s): F10.230 - Alcohol dependence with withdrawal, uncomplicated
--- NOTE | 2021-01-27 16:10 | XRay Report ---
XR chest 1V portable CLINICAL HISTORY: weakness COMPARISON STUDY: Chest radiograph December 10, 2020. FINDINGS: Lung volumes are normal. Lungs are clear. There is no pneumothorax or pleural effusion. Car diac size is normal. Mediastinal contours are stable. Mild upper mediastinal widening is unchanged. T here is no evidence for pulmonary edema. IMPRESSION: No acute cardiopulmonary findings. ACT 112: Negative or not required by law. Electronically signed by: Solis Metcalf M.D. 01/27/2021 4:09 PM
[2021-01-27 16:11] LABS: Partial Thromboplastin Ratio 0.9; Partial Thromboplastin Time 24.6 Seconds (21.0-31.0); Prothrombin Time 10.2 Seconds (9.0-12.0)
[2021-01-27 16:13] LABS: Alanine Aminotransferase 54 U/L (12-78); Albumin Level 4.5 gm/dl (3.4-5.0); Aspartate Aminotransferase 53 U/L (15-37); BUN Creatinine Ratio 7.3 (10-20); Blood Urea Nitrogen 8 mg/dl (7-18); Calcium 9.6 mg/dl (8.5-10.1); Carbon Dioxide 24 mmol/L (21-32); Chloride 101 mmol/L (98-107); Est GFR (African American) 94.8 ml/min; Est GFR (Non-African American) 81.8 ml/min; Glucose 160 mg/dl (70-99); Magnesium 1.8 mg/dl (1.8-2.4); Potassium 3.8 mmol/L (3.5-5.1); Sodium 136 mmol/L (136-145)
[2021-01-27 16:24] LABS: Alkaline Phosphatase 105 U/L (45-117); Bilirubin,Total 1.1 mg/dl (0.2-1); Globulin 4.6 gm/dl (2.5-4.0); Total Protein 9.1 gm/dl (6.4-8.2); Troponin I < 0.015 ng/ml (0-0.045)
[2021-01-27 16:27] LABS: Mean Platelet Volume 9.5 fL (7.4-10.4); Platelet Count 94 K/uL (130-400)
[2021-01-27 16:29] LABS: Basophils # (auto) 0.01 K/uL (0-0.2); Basophils % (auto) 0.2 %; Eosinophils # (auto) 0.03 K/uL (0-0.5); Eosinophils % (auto) 0.5 %; Immature Granulocytes # (auto) 0.02 K/uL (0.00-0.02); Immature Granulocytes % (auto) 0.3 %; Lymphocytes # (auto) 0.78 K/uL (1.2-3.4); Lymphocytes % (auto) 13.4 %; Monocytes # (auto) 0.87 K/uL (0.11-0.59); Monocytes % (auto) 14.9 %; Neutrophils # (auto) 4.11 K/uL (1.4-6.5); Neutrophils % (auto) 70.7 %; Platelet Estimate Decreased (Normal); Polychromasia 1+
--- NOTE | 2021-01-27 17:58 | XRay Report ---
XR knee LT 1 or 2V routine HISTORY: 45 years-old Male left knee pain chronic left knee pain COMPARISON: None TECHNIQUE: 3 views of the left knee FINDINGS: Spurring of the tibial tuberosity. Trace joint effusion. No acute fracture, dislocation or significan t joint space narrowing. IMPRESSION: Trace joint effusion without acute fracture. ACT 112: Negative or not required by law. The above report was generated using voice recognition software. It may contain grammatical, syntax o r spelling errors. Electronically signed by: Reyes Ash M.D. 01/27/2021 5:56 PM
[2021-01-27 18:20] LABS: Appearance Urine Clear (Clear); Bacteria Urine Automated Negative (Negative); Bilirubin Urine Negative (Negative); Blood Urine Negative (Negative); Cast Urine Automated 0 /lpf (0-5); Color Urine Yellow; Epithelial Cell Urine Auto 0-5 /lpf (0-5); Glucose Urine UA Negative (Negative); Ketones Urine Negative (Negative); Leukocyte Esterase Urine Negative (Negative); Nitrite Urine Negative (Negative); RBC Urine Automated 0-4 /hpf (0-4); Specific Gravity Urine 1.009 (1.000-1.030); Urobilinogen Urine Negative (Negative); pH Urine 8.5 (4.5-7.5)
[2021-01-27 18:21] LABS: Protein Urine 1+ (Negative)
[2021-01-27] MEDS ORDERED: GABAPENTIN 800MG ALCOHOL WITHDRAWAL LOAD PO STA (19:19)
--- NOTE | 2021-01-27 19:32 | History & Physical Report ---
Date of Service January 27, 2021 Assessment & Plan (1) Alcohol withdrawal: Plan: Danny Park is a 45 yo male with a PMHx significant for anxiety, depression, alcohol use disorder, and alcohol withdrawal who presented to the hospital with concerns for lightheadedness and shakiness, concerns for alcohol withdrawal. Alcohol abuse, concerns for alcohol withdrawal - Negative alcohol level on admission - Initiate AWSS protocol with Ativan prn per protocol - Start gabapentin load/taper - Thiamine 200mg po qAM - Folic acid 1mg - May consider clonidine patch - Seizure precautions in place - Recommend outpatient psychiatric care/counseling after hospitalization - Consider starting naltrexone during admission Pre-Syncope/Lightheadedness - No focal neurological findings on exam or at onset of symptoms - Etiology likely secondary to potential alcohol withdrawal combined with history of anxiety and depression - Patient worked up for similar symptoms last hospitalization about [address] head and CTA head/neck being negative - Patient currently feels that the lightheadedness/pre-syncopal sensation has resolved Hypertension - Patient with hx of hypertension for which he takes Losartan 25mg po daily - Admits to not taking medication today - Will give losartan at this time on admission - May consider clonidine patch as noted above Anxiety/Depression - Reports that buspirone home regimen has improved anxiety/depression - Increased improvement with Ativan while in ED - Continue home buspirone regimen and Ativan prn - Patient reports no support system at home; recommend outpatient counseling for further management Thrombocytopenia - Platelet count currently 94k - Has been thrombocytopenic in the past with work up last hospitalization including negative hepatitis panel and negative tick borne panel (Lyme, anaplasmosis, babesiosis) - Suspect thrombocytopenia secondary to underlying liver dysfunction secondary to alcohol use - No acute signs of bleeding. Continue to monitor for bleeding. Diet: Regular Code status: Full code DVT ppx: deferred at this time Dispo: observation on [facility]/tele (2) Anxiety: (3) Alcohol abuse: (4) Depression: (5) Anxiety: History of Present Illness Chief Complaint: SYNCOPE Primary Care Provider: Wallace Cason MD Danny Park is a 45 yo male with a PMHx significant for anxiety, depression, alcohol use disorder, and alcohol withdrawal who presented to the hospital with concerns for lightheadedness and shakiness. Patient states, "this feels like when I was in withdrawal before." The last time he had these symptoms was prior to last hospitalization, about 6 weeks ago. Patient reports abstinence from alcohol for about 4 weeks but states that a couple weeks ago, his grandmother which spurred re-use of alcohol. Denies knowledge of naltrexone or use of naltrexone in the past. Over the past 3 days, patient "went on a binge," drinking ~24 beers over the past 3 days. He is unsure of the time of his last drink but believes that it was between 2pm and midnight last night. Woke up this morning and "wanted to get sober again" so he decided to go to the gym. After working out at the gym and drinking Monster energy drinks, patient went to [employer] to get a cheeseburger and english fries. While driving through the parking lot at [employer]/the mall, patient had an acute onset of dizziness (described as lightheadedness/pre-syncope) and shakiness. Again, patient states that these symptoms were reminiscent of his previous hospitalization so he came directly to the ER for evaluation. There is concern for anxiety and depression; he states that he "has no support system" and that he lives at home alone. Admits that he has not followed up in the outpatient setting for mental health therapy or care. There is improvement in his anxiety with buspirone home regimen and he reports even more improvement in the anxiety with Ativan that he received in the ED. He denies vertigo, nausea, vomiting, vision changes, CP, SOB, cough, or HENDRICKSON. Allergies Allergy/AdvReac Type Severity Reaction Status Date / Time Penicillins Allergy Mild Hives Verified 01/27/21 15:54 Home Medications Medication Instructions Recorded Confirmed Type cholecalciferol (vitamin D3) 25 0 mcg PO DAILY 12/08/20 01/27/21 History mcg (1,000 unit) tablet (Vitamin D3) multivitamin 1 tab PO DAILY 12/08/20 01/27/21 History vitamin B complex 1 tab PO DAILY 12/08/20 01/27/21 History vitamin E 400 unit capsule 400 unit PO DAILY 12/10/20 01/27/21 History lorazepam 1 mg tablet (Ativan) 0.5 mg PO Q6H PRN #6 tab 12/11/20 01/27/21 Rx buspirone 5 mg tablet 5 mg PO TID 01/27/21 01/27/21 History losartan 25 mg tablet 25 mg PO DAILY 01/27/21 01/27/21 History Past Med/Surg History Medical History Alcohol abuse Alcohol withdrawal Anxiety Depression Surgical History History of tonsillectomy Social History Smoking Status: Never smoker Second Hand Exposure: No; Hx Alcohol Use: Yes Alcohol type: beer, wine and hard liquor Hx Substance Use: No Preferred Language: Cambodian Communication Ability: Effective 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 Well developed and well nourished. Vital signs reviewed as above. EYES: PERRLA. EOMI. Anicteric sclerae. HENT: Moist mucous membranes. No cervical lymphadenopathy. RESPIRATORY: Clear to auscultation bilaterally. No wheezing, rales, or rhonchi. CARDIOVASCULAR: Tachycardic. Regular rhythm. No murmurs. ABDOMEN: Soft, non-tender and non-distended. No palpable masses. Normal bowel sounds. EXTREMITIES: No edema. Non-tender. SKIN: Warm, dry. No rashes or lesions. NEUROLOGIC: No focal neurological deficits. CN II-XII grossly intact. 5/5 strength in BLE. PSYCHIATRIC: Cooperative. Appropriate mood and affect. Results & Data Results & Data ([facility]) Vital Signs (Past 12 Hours) Vital Signs Temp Pulse Pulse Resp BP BP Pulse Ox 01/27/21 19:00 93 H 15 203/112 H 97 01/27/21 18:30 108 H 13 210/136 H 98 01/27/21 18:00 108 H 17 195/115 H 01/27/21 17:37 96 01/27/21 17:30 105 H 16 183/122 H 96 01/27/21 17:22 106 H 16 197/127 H 95 01/27/21 17:00 104 H 25 H 201/121 H 92 01/27/21 16:35 95 01/27/21 16:30 101 H 18 191/107 H 92 01/27/21 16:22 99 H 16 178/115 H 95 01/27/21 15:43 123 H 16 177/125 H 97 01/27/21 15:29 36.6 C 119 H 18 193/114 H 96 Laboratory Results 01/27/21 01/27/21 01/27/21 Range/Units 18:13 18:13 18:05 WBC (4.8-10.8) K/uL RBC (4.7-6.1) M/uL Hgb (14.0-18.0) g/dL Hct (42-52) % MCV (80-100) fL MCH (25-34) pg MCHC (32-36) g/dL RDW Std Deviation (36.4-46.3) fL RDW Coeff of Theron (11.5-14.5) % Plt Count (130-400) K/uL MPV (7.4-10.4) fL Immature Gran % (Auto) % Neut % (Auto) % Lymph % (Auto) % Campbell % (Auto) % Eos % (Auto) % Baso % (Auto) % Neut # (Auto) (1.4-6.5) K/uL Lymph # (Auto) (1.2-3.4) K/uL Campbell # (Auto) (0.11-0.59) K/uL Eos # (Auto) (0-0.5) K/uL Baso # (Auto) (0-0.2) K/uL Immature Gran # (Auto) (0.00-0.02) K/uL Platelet Estimate (Normal) Polychromasia PT (9.0-12.0) Seconds INR (0.9-1.1) APTT (21.0-31.0) Seconds PTT Ratio Sodium (136-145) mmol/L Potassium (3.5-5.1) mmol/L Chloride (98-107) mmol/L Carbon Dioxide (21-32) mmol/L Anion Gap (3-11) BUN (7-18) mg/dl Creatinine (0.6-1.4) mg/dl Est Cr Clr Drug Dosing Est GFR ( Amer) ml/min Est GFR (Non-Af Amer) ml/min BUN/Creatinine Ratio (10-20) Glucose (70-99) mg/dl POC Glucose (70-99) mg/dl Calcium (8.5-10.1) mg/dl Magnesium (1.8-2.4) mg/dl Total Bilirubin (0.2-1) mg/dl AST (15-37) U/L ALT (12-78) U/L Alkaline Phosphatase (45-117) U/L Troponin I (0-0.045) ng/ml Total Protein (6.4-8.2) gm/dl Albumin (3.4-5.0) gm/dl Globulin (2.5-4.0) gm/dl Albumin/Globulin Ratio (0.9-2) TSH (0.300-4.500) uIu/ml Urine Color Yellow Urine Appearance Clear (Clear) Urine pH 8.5 H (4.5-7.5) Ur Specific Yoder 1.009 (1.000-1.030) Urine Protein 1+ H (Negative) Urine Glucose (UA) Negative (Negative) Urine Ketones Negative (Negative) Urine Blood Negative (Negative) Urine Nitrite Negative (Negative) Urine Bilirubin Negative (Negative) Urine Urobilinogen Negative (Negative) Ur Leukocyte Esterase Negative (Negative) Urine WBC (Auto) 1-5 (0-5) /hpf Urine RBC (Auto) 0-4 (0-4) /hpf U Hyaline Cast (Auto) 0 (0-5) /lpf U Epithel Cells (Auto) 0-5 (0-5) /lpf Urine Bacteria (Auto) Negative (Negative) Ethyl Alcohol mg/dL (0-3) mg/dl COVID-19 Eval Order Covid19 at [facility] SARS-CoV-2 (PCR) NEGATIVE (Negative) 01/27/21 01/27/21 01/27/21 Range/Units 16:22 15:43 15:40 WBC (4.8-10.8) K/uL RBC (4.7-6.1) M/uL Hgb (14.0-18.0) g/dL Hct (42-52) % MCV (80-100) fL MCH (25-34) pg MCHC (32-36) g/dL RDW Std Deviation (36.4-46.3) fL RDW Coeff of Theron (11.5-14.5) % Plt Count (130-400) K/uL MPV (7.4-10.4) fL Immature Gran % (Auto) % Neut % (Auto) % Lymph % (Auto) % Campbell % (Auto) % Eos % (Auto) % Baso % (Auto) % Neut # (Auto) (1.4-6.5) K/uL Lymph # (Auto) (1.2-3.4) K/uL Campbell # (Auto) (0.11-0.59) K/uL Eos # (Auto) (0-0.5) K/uL Baso # (Auto) (0-0.2) K/uL Immature Gran # (Auto) (0.00-0.02) K/uL Platelet Estimate (Normal) Polychromasia PT (9.0-12.0) Seconds INR (0.9-1.1) APTT (21.0-31.0) Seconds PTT Ratio Sodium 136 (136-145) mmol/L Potassium 3.8 (3.5-5.1) mmol/L Chloride 101 (98-107) mmol/L Carbon Dioxide 24 (21-32) mmol/L Anion Gap 11.0 (3-11) BUN 8 (7-18) mg/dl Creatinine 1.10 (0.6-1.4) mg/dl Est Cr Clr Drug Dosing Not Reportable Est GFR ( Amer) 94.8 ml/min Est GFR (Non-Af Amer) 81.8 ml/min BUN/Creatinine Ratio 7.3 L (10-20) Glucose 160 H (70-99) mg/dl POC Glucose 155 H (70-99) mg/dl Calcium 9.6 (8.5-10.1) mg/dl Magnesium 1.8 (1.8-2.4) mg/dl Total Bilirubin 1.1 H (0.2-1) mg/dl AST 53 H (15-37) U/L ALT 54 (12-78) U/L Alkaline Phosphatase 105 (45-117) U/L Troponin I < 0.015 (0-0.045) ng/ml Total Protein 9.1 H (6.4-8.2) gm/dl Albumin 4.5 (3.4-5.0) gm/dl Globulin 4.6 H (2.5-4.0) gm/dl Albumin/Globulin Ratio 1.0 (0.9-2) TSH 1.250 (0.300-4.500) uIu/ml Urine Color Urine Appearance (Clear) Urine pH (4.5-7.5) Ur Specific Yoder (1.000-1.030) Urine Protein (Negative) Urine Glucose (UA) (Negative) Urine Ketones (Negative) Urine Blood (Negative) Urine Nitrite (Negative) Urine Bilirubin (Negative) Urine Urobilinogen (Negative) Ur Leukocyte Esterase (Negative) Urine WBC (Auto) (0-5) /hpf Urine RBC (Auto) (0-4) /hpf U Hyaline Cast (Auto) (0-5) /lpf U Epithel Cells (Auto) (0-5) /lpf Urine Bacteria (Auto) (Negative) Ethyl Alcohol mg/dL < 3.0 (0-3) mg/dl COVID-19 Eval Order SARS-CoV-2 (PCR) (Negative) 01/27/21 01/27/21 Range/Units 15:40 15:40 WBC 5.82 (4.8-10.8) K/uL RBC 5.28 (4.7-6.1) M/uL Hgb 17.2 (14.0-18.0) g/dL Hct 48.4 (42-52) % MCV 91.7 (80-100) fL MCH 32.6 (25-34) pg MCHC 35.5 (32-36) g/dL RDW Std Deviation 49.7 H (36.4-46.3) fL RDW Coeff of Theron 14.8 H (11.5-14.5) % Plt Count 94 L (130-400) K/uL MPV 9.5 (7.4-10.4) fL Immature Gran % (Auto) 0.3 % Neut % (Auto) 70.7 % Lymph % (Auto) 13.4 % Campbell % (Auto) 14.9 % Eos % (Auto) 0.5 % Baso % (Auto) 0.2 % Neut # (Auto) 4.11 (1.4-6.5) K/uL Lymph # (Auto) 0.78 L (1.2-3.4) K/uL Campbell # (Auto) 0.87 H (0.11-0.59) K/uL Eos # (Auto) 0.03 (0-0.5) K/uL Baso # (Auto) 0.01 (0-0.2) K/uL Immature Gran # (Auto) 0.02 (0.00-0.02) K/uL Platelet Estimate Decreased L (Normal) Polychromasia 1+ PT 10.2 (9.0-12.0) Seconds INR 1.0 (0.9-1.1) APTT 24.6 (21.0-31.0) Seconds PTT Ratio 0.9 Sodium (136-145) mmol/L Potassium (3.5-5.1) mmol/L Chloride (98-107) mmol/L Carbon Dioxide (21-32) mmol/L Anion Gap (3-11) BUN (7-18) mg/dl Creatinine (0.6-1.4) mg/dl Est Cr Clr Drug Dosing Est GFR ( Amer) ml/min Est GFR (Non-Af Amer) ml/min BUN/Creatinine Ratio (10-20) Glucose (70-99) mg/dl POC Glucose (70-99) mg/dl Calcium (8.5-10.1) mg/dl Magnesium (1.8-2.4) mg/dl Total Bilirubin (0.2-1) mg/dl AST (15-37) U/L ALT (12-78) U/L Alkaline Phosphatase (45-117) U/L Troponin I (0-0.045) ng/ml Total Protein (6.4-8.2) gm/dl Albumin (3.4-5.0) gm/dl Globulin (2.5-4.0) gm/dl Albumin/Globulin Ratio (0.9-2) TSH (0.300-4.500) uIu/ml Urine Color Urine Appearance (Clear) Urine pH (4.5-7.5) Ur Specific Yoder (1.000-1.030) Urine Protein (Negative) Urine Glucose (UA) (Negative) Urine Ketones (Negative) Urine Blood (Negative) Urine Nitrite (Negative) Urine Bilirubin (Negative) Urine Urobilinogen (Negative) Ur Leukocyte Esterase (Negative) Urine WBC (Auto) (0-5) /hpf Urine RBC (Auto) (0-4) /hpf U Hyaline Cast (Auto) (0-5) /lpf U Epithel Cells (Auto) (0-5) /lpf Urine Bacteria (Auto) (Negative) Ethyl Alcohol mg/dL (0-3) mg/dl COVID-19 Eval Order SARS-CoV-2 (PCR) (Negative) Diagnostic Findings XR chest 1V portable CLINICAL HISTORY: weakness COMPARISON STUDY: Chest radiograph December 10, 2020. FINDINGS: Lung volumes are normal. Lungs are clear. There is no pneumothorax or pleural effusion. Cardiac size is normal. Mediastinal contours are stable. Mild upper mediastinal widening is unchanged. There is no evidence for pulmonary edema. IMPRESSION: No acute cardiopulmonary findings. Supervising Physician Co-Signing Physician Notes Patient seen and examined at bedside, chart reviewed, case discussed with Dr. Sarabia. Patient reports shaving an episode of lightheadedness after a presyncope episode. Patient reports binge drinking alcohol for 3 days. Patient will be admitted under observation for hypertensive urgency and pre- syncope. Patient dina be on AWSS and benzo. Resident Activity Tracking Resident Involvement: Resident Care Provided Care Provided: Adult Hospital Medicine (1) Alcohol withdrawal Complication of substance-induced condition: uncomplicated Qualified Code(s): F10.230 - Alcohol dependence with withdrawal, uncomplicated
[2021-01-27] MEDS: LOSARTAN POTASSIUM 25 MG TAB PO SCH (19:55)
[2021-01-27] MEDS ORDERED: GABAPENTIN 800 MG TAB PO STA (20:34)
[2021-01-27] MEDS ORDERED: LORazepam 2 MG/4 ML VIAL IV PRN (22:32)
[2021-01-27] MEDS ORDERED: LORazepam 3 MG/6 ML VIAL IV PRN (22:32)
[2021-01-27] MEDS ORDERED: GABAPENTIN 400 MG CAP PO ONE (22:32)
[2021-01-27] MEDS ORDERED: ATIVAN IV ALCOHOL WITHDRAWL IV PRN (22:32)
[2021-01-27] MEDS: FOLIC ACID 1 MG TAB PO SCH (22:58)
[2021-01-27] MEDS: THIAMINE HCL 100 MG TAB PO SCH (23:00)
[2021-01-27] MEDS: busPIRone 5 MG TAB PO SCH (23:00)
[2021-01-28] MEDS: LORazepam 1 MG/2 ML VIAL IV PRN (03:45)
[2021-01-28] MEDS: GABAPENTIN 400 MG CAP PO SCH ×3 (06:20→20:32)
[2021-01-28 06:29] LABS: Mean Corpuscular Hemoglobin 32.6 pg (25-34); Mean Corpuscular Hgb Conc 34.8 g/dL (32-36); Mean Corpuscular Volume 93.7 fL (80-100); RDW Coefficient of Variation 14.9 % (11.5-14.5); RDW Standard Deviation 50.5 fL (36.4-46.3); Red Blood Count 4.91 M/uL (4.7-6.1); White Blood Count 4.91 K/uL (4.8-10.8)
[2021-01-28 06:38] LABS: Mean Platelet Volume 9.7 fL (7.4-10.4); Platelet Count 76 K/uL (130-400)
[2021-01-28 06:41] LABS: Partial Thromboplastin Time 25.7 Seconds (21.0-31.0); Prothrombin Time 10.5 Seconds (9.0-12.0)
[2021-01-28 06:53] LABS: Basophils # (auto) 0.01 K/uL (0-0.2); Basophils % (auto) 0.2 %; Eosinophils # (auto) 0.08 K/uL (0-0.5); Eosinophils % (auto) 1.6 %; Immature Granulocytes # (auto) 0.01 K/uL (0.00-0.02); Immature Granulocytes % (auto) 0.2 %; Lymphocytes # (auto) 0.72 K/uL (1.2-3.4); Lymphocytes % (auto) 14.7 %; Monocytes # (auto) 0.75 K/uL (0.11-0.59); Monocytes % (auto) 15.3 %; Neutrophils # (auto) 3.34 K/uL (1.4-6.5); RBC Morphology Unremarkable
[2021-01-28 07:04] LABS: Albumin Level 3.9 gm/dl (3.4-5.0); BUN Creatinine Ratio 7.9 (10-20); Calcium 9.2 mg/dl (8.5-10.1); Creatinine Clr Calc Pharmacy 146.8 ml/min; Est GFR (African American) 125.5 ml/min; Est GFR (Non-African American) 108.3 ml/min; Potassium 3.5 mmol/L (3.5-5.1)
[2021-01-28 07:06] LABS: Bilirubin,Total 1.3 mg/dl (0.2-1); Globulin 3.9 gm/dl (2.5-4.0); Total Protein 7.8 gm/dl (6.4-8.2)
--- NOTE | 2021-01-28 07:16 | Billing Data ---
Date of Service January 27, 2021 Coding Level of Care Code 01101 Initial Inpt Care Lvl 3
--- NOTE | 2021-01-28 08:17 | Electrocardiogram Report ---
Test Reason : Blood Pressure : / mmHG Vent. Rate : 116 BPM Atrial Rate : 116 BPM P-R Int : 152 ms QRS Dur : 098 ms QT Int : 338 ms P-R-T Axes : 065 -77 064 degrees QTc Int : 469 ms Sinus tachycardia Left atrial enlargement Incomplete right bundle branch block Left anterior fascicular block Abnormal ECG When compared with ECG of 10-DEC-2020 22:56, HR has increased by 30 bpm Incomplete right bundle branch block is now Present Confirmed by Elan Lam ([id number]) on 01/28/2021 8:17:17 AM Referred By: REFERRED SELF Confirmed By:Elan Lam
[2021-01-28] MEDS: CHOLECALCIFEROL 1,000 UNITS 25 MCG TAB PO SCH (08:21)
[2021-01-28] MEDS: TOCOPHERYL, DL-ALPHA 400 UNITS 180 MG CAP PO SCH (08:21)
[2021-01-28] MEDS: LOSARTAN POTASSIUM 25 MG TAB PO SCH (08:21)
[2021-01-28] MEDS: busPIRone 5 MG TAB PO SCH ×3 (08:21→20:32)
[2021-01-28] MEDS: VITAMIN B COMPLEX TAB PO SCH (08:22)
[2021-01-28] MEDS: THIAMINE HCL 100 MG TAB PO SCH (08:22)
[2021-01-28] MEDS: MULTIVITAMIN TAB PO SCH (08:22)
[2021-01-28] MEDS: FOLIC ACID 1 MG TAB PO SCH (10:25)
--- NOTE | 2021-01-28 12:59 | Hospitalist Progress Note ---
Date of Service January 28, 2021 Assessment & Plan (1) Alcohol withdrawal: Plan: Danny Park is a 45 yo male with a PMHx significant for anxiety, depression, alcohol use disorder, and alcohol withdrawal who presented to the hospital with concerns for lightheadedness and shakiness, concerns for alcohol withdrawal. Concern for alcohol withdrawal, Severe Alcohol use disorder, - Pt's symptoms of tremor and lightheadedness within 12 hours of binge drinking (24 drinks in 3 days), elevated BP and tachycardia with improvement in symptoms with time and Ativan consistent with acute alcohol withdrawal. Pt has gabapentin taper in progress, currently 400 mg q6h. Will taper to q8h and progress to q24h. - Pt's AWSS scores have been consistently 5 or below over day, has not required PRN Ativan today. Will continue AWSS monitoring - Will continue thiamine 200 mg daily for prevention of Wernicke encephalopathy - Will continue folic acid 1 mg daily supplementation due to alcohol-mediated depletion of folic acid levels - Pt's alcohol dependence to be addressed with Naltrexone treatment starting tomorrow if LFTs stable. Pre-Syncope/Lightheadedness - Pt's lightheadedness on admission not associated with any focal neurological findings on exam, currently resolving. Likely due to acute alcohol withdrawal with lesser component of anxiety/depression. Pt's CT Head from hospitalization 6 weeks ago for similar symptoms negative; low suspicion for intracranial etiology. Will monitor for recurrence and any associated neurologic symptoms. Thrombocytopenia - Pt's platelet count currently 76k, though no ecchymoses/petechiae appreciated on exam and no current bleeding. Thrombocytopenia likely due to acute alcohol- mediated liver dysfunction, less likely due to infectious causes given negative workup, less likely due to primary coagulopathy due to lack of clinical history. Will monitor for any bleeding. Trend CBCs, expected to resolve with time. Hypertension - Currently treated with Losartan 25 mg daily. Will continue home medication during this admission. - consider sleep study as outpatient. Anxiety/Depression - Currently well controlled on home buspirone 5 mg. Diet: Regular Code status: Full code DVT ppx: low risk Dispo: Home with no needs (2) Anxiety: (3) Alcohol abuse: (4) Depression: Admission and Anticipated Discharge Date Admission Date: January 27, 2021 Supervising Physician Co-Signing Physician Notes Resident Physician Supervision Note: I independently interviewed and examined the patient and verified the sinclair history and physical, reviewed labs and image studies and agree with resident Dr. Shirley findings and care plan. Subjective Pt reports feeling better now, no current complaints, eating and voiding without difficulty. Denies any cravings for alcohol at this time. States his hands slightly tremble when eating but has not experienced lightheadedness. Denies any abdominal pain or headache. Review of Systems Review of Systems: All systems reviewed & are unremarkable except as noted in HPI & below Neurologic: + tremor(s) (Both hands) Physical Exam Physical Exam: GENERAL: No acute distress. Well developed and well nourished. EYES: EOMI. Anicteric sclerae. HENT: Moist mucous membranes. No cervical lymphadenopathy. RESPIRATORY: Clear to auscultation bilaterally. No wheezing, rales, or rhonchi. CARDIOVASCULAR: Tachycardic. Regular rhythm. No murmurs. ABDOMEN: Soft, non-tender and non-distended. No palpable masses. Normal bowel sounds. EXTREMITIES: No edema SKIN: Flushed, warm, dry. No rashes or lesions. NEUROLOGIC: No focal neurological deficits. CN II-XII grossly intact. PSYCHIATRIC: Cooperative. Appropriate mood and affect. Results & Data Results & Data ([facility]) Vital Signs (Past 12 Hours) Vital Signs Temp Pulse Pulse Resp BP Pulse Ox 01/28/21 11:58 37.1 C 114 H 20 160/78 H 95 01/28/21 07:48 37.0 C 82 20 180/98 H 97 01/28/21 07:26 74 01/28/21 06:16 36.7 C 80 20 191/108 H 97 01/28/21 03:09 36.5 C 88 18 191/95 H 98 Resident Activity Tracking Resident Involvement: Resident Care Provided Care Provided: Adult Hospital Medicine (1) Alcohol withdrawal Complication of substance-induced condition: uncomplicated Qualified Code(s): F10.230 - Alcohol dependence with withdrawal, uncomplicated
--- NOTE | 2021-01-28 17:51 | Discharge Summary ---
Date of Service January 28, 2021 Admission HPI Per Admitting Provider Danny Park is a 45 yo male with a PMHx significant for anxiety, depression, alcohol use disorder, and alcohol withdrawal who presented to the hospital with concerns for lightheadedness and shakiness. Patient states, "this feels like when I was in withdrawal before." The last time he had these symptoms was prior to last hospitalization, about 6 weeks ago. Patient reports abstinence from alcohol for about 4 weeks but states that a couple weeks ago, his grandmother which spurred re-use of alcohol. Denies knowledge of naltrexone or use of naltrexone in the past. Over the past 3 days, patient "went on a binge," drinking ~24 beers over the past 3 days. He is unsure of the time of his last drink but believes that it was between 2pm and midnight last night. Woke up this morning and "wanted to get sober again" so he decided to go to the gym. After working out at the gym and drinking Monster energy drinks, patient went to [employer] to get a cheeseburger and dutch fries. While driving through the parking lot at [employer]the [employer], patient had an acute onset of dizziness (described as lightheadedness/pre-syncope) and shakiness. Again, patient states that these symptoms were reminiscent of his previous hospitalization so he came directly to the ER for evaluation. There is concern for anxiety and depression; he states that he "has no support system" and that he lives at home alone. Admits that he has not followed up in the outpatient setting for mental health therapy or care. There is improvement in his anxiety with buspirone home regimen and he reports even more improvement in the anxiety with Ativan that he received in the ED. He denies vertigo, nausea, vomiting, vision changes, CP, SOB, cough, or HENDRICKSON. Admission Exam Per Admitting Provider GENERAL: No acute distress. Well developed and well nourished. Vital signs reviewed as above. EYES: PERRLA. EOMI. Anicteric sclerae. HENT: Moist mucous membranes. No cervical lymphadenopathy. RESPIRATORY: Clear to auscultation bilaterally. No wheezing, rales, or rhonchi. CARDIOVASCULAR: Tachycardic. Regular rhythm. No murmurs. ABDOMEN: Soft, non-tender and non-distended. No palpable masses. Normal bowel sounds. EXTREMITIES: No edema. Non-tender. SKIN: Warm, dry. No rashes or lesions. NEUROLOGIC: No focal neurological deficits. CN II-XII grossly intact. 5/5 str ength in BLE. PSYCHIATRIC: Cooperative. Appropriate mood and affect. Principal Diagnosis Alcohol withdrawal Discharge Exam Constitutional: well-appearing, laying in bed HEENT: NCAT, no conjunctivitis, no scleral icterus CV: regular rhythm, no murmur appreciated, extremities well-perfused Resp: CTABL, no wheezes/rales/rhonchi appreciated, no increased work of breathing Abd: Soft, nontender, nondistended. Normal bowel sounds. MSK: no gross deformities appreciated Skin: warm, dry, no rash appreciated Neuro: AOx4, no focal neurological deficits appreciated Discharge Data Allergies Allergy/AdvReac Type Severity Reaction Status Date / Time Penicillins Allergy Mild Hives Verified 01/27/21 15:54 Consultations 01/27/21 18:03 ED Decision to Admit Stat Hospital Course (1) Alcohol withdrawal: Alcohol use, concerns for alcohol withdrawal - Pt was hospitalized from 01/27 to 01/29 for alcohol withdrawal. His withdrawal symptoms were treated with PRN Ativan and a gabapentin taper. Pt was given thiamine and folic acid supplementation for prevention of Wernicke encephalopathy and anemia. He was regularly AWSS monitored during this admission with scores consistently 6 or below and did not require more than 1 Ativan PRN per day and none on day of discharge. He reported resolution of his tremors and lightheadedness, and did not experience any seizures, agitation or hallucinations. He remained hemodynamically stable throughout his hospital stay. He was also started on naltrexone after LFTs were found to be stable and received counseling/motivational interviewing regarding alcohol cessation. He was counseled about continuing gabapentin and naltrexone after discharge. Pre-Syncope/Lightheadedness - Pt's lightheadedness on admission resolved early within hospital course and was attributed to acute alcohol withdrawal with some component of anxiety/ depression. He did not have any recurrent dizziness/lightheadedness during this hospital stay. Thrombocytopenia -Pt's platelet counts were low, though he did not experience any bleeding or bruising during this stay. His thrombocytopenia was attributed to alcohol- mediated liver injury and resolved by day of discharge. Hypertension - Pt's hypertension was treated with home Losartan. His blood pressures remained stable during this admission. He was counseled about the possibility of obtaining a sleep study given his medical history and snoring at night. Anxiety/Depression - Pt's anxiety and depression were controlled with home Buspar. He did not experience any psychiatric symptoms during this admission. (2) Anxiety: (3) Alcohol abuse: (4) Depression: Total Time Total Time Spent Total Time Spent (In Minutes): 30 Discharge Plan Discharge Items Patient Disposition: Home - Self-Care Reason For Visit: PRE-SYNCOPE, CONCERN FOR ALCOHOL WITHDRAWAL Discharge Diagnosis: Alcohol withdrawal Activity: Per Instructions section Non-emergency contact: Primary Care Provider Call non-emergency contact if: you have any medication questions, your symptoms worsen, your pain is not controlled, your pain is worsening and you have a fever Follow-up/Referrals: PCP,NO [Primary Care Provider] - None (Dr. Cason) Diet: Regular Addtl Attending Provider Instructions: You were admitted to the hospital for alcohol withdrawal. Alcohol withdrawal -Your shaking and lightheadedness after a period of significant alcohol consumption in a limited duration was suspected to be caused by alcohol withdrawal. You were treated with benzodiazepine medications and gabapentin to reduce your withdrawal symptoms. You also received vitamin supplementation to ensure adequate levels of necessary vitamins which may have been depleted by alcohol consumption. You were then monitored in the hospital for continued withdrawal symptoms. You were also started on a medication, naltrexone, to assist in alcohol cessation. A discharge summary will be sent to your primary care physician to ensure continuity of care. Please bring this discharge summary with you to your next office appointment so that your provider can review it at that time. Follow-up appointments: Make a follow-up appointment with your PCP Dr. Cason at your earliest convenience. It is very important that you follow up with them shortly after discharge from the hospital. Keep all your follow-up appointments as already scheduled. If you cannot make an appointment, notify your provider. Medications: Your medication list has been reviewed and reconciled upon discharge to ensure accuracy and continuity of care. An updated list of all your medications is included with your hospital discharge paperwork. Please review this list closely, and make note of any changes. We sent a new medication called Gabapentin to your pharmacy. Take Gabapentin 400 mg tablet twice a day for 30 days. We sent a new medication called Naltrexone to your pharmacy. Take Naltrexone 50 mg once a day for 30 days. Take your medications as instructed; do not skip a dose of your medicines. Make sure all of your doctors know every medicine you are taking (including [id number]-[id number] medicines, vitamins, and supplements). Call your primary care provider before taking any new medicines (including jqkd-kjf-sfzbtcp medicines, vitamins, and supplements), because some of these may interact with your current medications, or may make your symptoms worse. Tell your primary care provider if you cannot afford your medications. CONTACT YOUR PRIMARY CARE PROVIDER if you experience any of the following: Tremors Lightheadedness Persistent headache Palpitations Excessive sweating CALL 911 OR GO TO THE EMERGENCY DEPARTMENT if you experience any of the following: Sudden, severe abdominal pain or nausea/vomiting Seizure Hallucinations Severe chest pain, or chest pain that radiates (moves) to your jaw or arm Sudden, severe shortness of breath or difficulty breathing Difficulty following your treatment plan, or difficulty taking medications Thank you for allowing us to participate in your care. Pending Studies at Discharge: No Stand-Alone Forms: [facility] Dragon[facility], Smoking Cessation Medications and DC Order Prescriptions: New gabapentin 400 mg capsule 400 mg PO BID Qty: 60 RF: 0 naltrexone 50 mg tablet 50 mg PO DAILY Qty: 30 RF: 0 Continued vitamin E 400 unit Capsule 400 unit PO DAILY RF: 0 lorazepam [Ativan] 1 mg tablet 0.5 mg PO Q6H PRN (Reason: anxiety) Qty: 6 RF: 0 buspirone 5 mg tablet 5 mg PO TID RF: 0 losartan 25 mg tablet 25 mg PO DAILY RF: 0 multivitamin Tablet 1 tab PO DAILY RF: 0 vitamin B complex Tablet 1 tab PO DAILY RF: 0 cholecalciferol (vitamin D3) [Vitamin D3] 25 mcg (1,000 unit) Tablet 0 mcg PO DAILY RF: 0 Discharge Orders: Discharge Order (Routine); Ordered 01/29/21 Ordered By: Andrew Banerjee Admission Data Admit Date/Time: 01/29/21 13:34 Attending Provider: Shanelle Baltazar Admit Provider: Kanwal Sarabia Primary Care Provider: PCP,NO Other Providers: Antwan Matthew Other Interventions: Discharge Summary Assessment (RN) Last Done: 01/29/21 17:52 Supervising Physician Co-Signing Physician Notes Resident Physician Supervision Note: I independently interviewed and examined the patient and verified the sinclair history and physical, reviewed labs and image studies and agree with resident Dr. Banerjee findings and care plan. Resident Activity Tracking Resident Involvement: Resident Care Provided Care Provided: Adult [facility] Medicine
[2021-01-29] MEDS: LORazepam 1 MG/2 ML VIAL IV PRN (00:14)
[2021-01-29] MEDS: GABAPENTIN 400 MG CAP PO SCH ×2 (03:08→11:41)
[2021-01-29 07:56] LABS: Albumin Globulin Ratio 0.9 (0.9-2); Albumin Level 3.9 gm/dl (3.4-5.0); BUN Creatinine Ratio 12.5 (10-20); Bilirubin,Total 1.6 mg/dl (0.2-1); Calcium 9.3 mg/dl (8.5-10.1); Creatinine Clr Calc Pharmacy 107.1 ml/min; Est GFR (African American) 92.7 ml/min; Globulin 4.2 gm/dl (2.5-4.0); Potassium 3.5 mmol/L (3.5-5.1); Total Protein 8.1 gm/dl (6.4-8.2)
[2021-01-29] MEDS: THIAMINE HCL 100 MG TAB PO SCH (08:58)
[2021-01-29] MEDS: FOLIC ACID 1 MG TAB PO SCH (08:58)
[2021-01-29] MEDS: TOCOPHERYL, DL-ALPHA 400 UNITS 180 MG CAP PO SCH (08:58)
[2021-01-29] MEDS: MULTIVITAMIN TAB PO SCH (08:58)
[2021-01-29] MEDS: busPIRone 5 MG TAB PO SCH ×2 (08:59→13:29)
[2021-01-29] MEDS: LOSARTAN POTASSIUM 25 MG TAB PO SCH (08:59)
[2021-01-29] MEDS: CHOLECALCIFEROL 1,000 UNITS 25 MCG TAB PO SCH (08:59)
[2021-01-29] MEDS: VITAMIN B COMPLEX TAB PO SCH (08:59)
--- NOTE | 2021-01-29 09:56 | Hospitalist Progress Note ---
Date of Service January 29, 2021 Assessment & Plan (1) Alcohol withdrawal: Plan: Danny Park is a 45 yo male with a PMHx significant for anxiety, depression, alcohol use disorder, and alcohol withdrawal who presented to the hospital with concerns for lightheadedness and shakiness, concerns for alcohol withdrawal. Concern for alcohol withdrawal, Severe Alcohol use disorder, - Pt's symptoms of tremor and lightheadedness within 12 hours of binge drinking (24 drinks in 3 days), elevated BP and tachycardia with improvement in symptoms with time and Ativan consistent with acute alcohol withdrawal. Pt has gabapentin taper in progress, currently 400 mg q8h. Will taper and progress to q24h. Expecting to continue Gabapentin after discharge due to multiple benefits toward sleep, anxiety and alcohol withdrawal symptoms. - Pt's AWSS scores have been consistently 6 or below over day, received 1 mg of Ativan overnight. Will continue AWSS monitoring - Will continue thiamine 200 mg daily for prevention of Wernicke encephalopathy - Will continue folic acid 1 mg daily supplementation due to alcohol-mediated depletion of folic acid levels - Pt's LFTs stable, will initiate Naltrexone 50 mg daily today for alcohol cessation. Pre-Syncope/Lightheadedness - Pt's lightheadedness on admission not associated with any focal neurological findings on exam, currently resolving. Likely due to acute alcohol withdrawal with lesser component of anxiety/depression. Pt's CT Head from hospitalization 6 weeks ago for similar symptoms negative; low suspicion for intracranial etiology. Will monitor for recurrence and any associated neurologic symptoms. Thrombocytopenia - Pt's platelet count currently 76k, though no ecchymoses/petechiae appreciated on exam and no current bleeding. Thrombocytopenia likely due to acute alcohol- mediated liver dysfunction, less likely due to infectious causes given negative workup, less likely due to primary coagulopathy due to lack of clinical history. Will monitor for any bleeding. Trend CBCs, expected to resolve with time. Hypertension - Currently treated with Losartan 25 mg daily. Will continue home medication during this admission. - Consider sleep study as outpatient due to increased risk for ALEX. Anxiety/Depression - Currently well controlled on home buspirone 5 mg. Diet: Regular Code status: Full code DVT ppx: low risk, SCDs Dispo: Home with no needs (2) Anxiety: (3) Alcohol abuse: (4) Depression: Admission and Anticipated Discharge Date Admission Date: January 27, 2021 (2) Anxiety: (3) Alcohol abuse: (4) Depression: Admission and Anticipated Discharge Date Admission Date: January 27, 2021 Subjective Pt reports feeling better now, no current complaints, eating and voiding without difficulty. Denies any cravings for alcohol at this time. Denies tremors today. Denies any abdominal pain or headache. Complaining of minor pain around left arm IV site though no pruritus, swelling or warmth. Received Ativan 1 mg last night. Review of Systems Review of Systems: All systems reviewed & are unremarkable except as noted in HPI & below See HPI Integumentary: as per Subjective / HPI Physical Exam Physical Exam: GENERAL: No acute distress. Well developed and well nourished. EYES: EOMI. Anicteric sclerae. HENT: Moist mucous membranes. No cervical lymphadenopathy. RESPIRATORY: Clear to auscultation bilaterally. No wheezing, rales, or rhonchi. CARDIOVASCULAR: Tachycardic. Regular rhythm. No murmurs. ABDOMEN: Soft, non-tender and non-distended. No palpable masses. Normal bowel sounds. EXTREMITIES: No edema SKIN: Flushed, warm, dry. No rashes or lesions. NEUROLOGIC: No focal neurological deficits. CN II-XII grossly intact. PSYCHIATRIC: Cooperative. Appropriate mood and affect. Results & Data Results & Data ([facility]) Vital Signs (Past 12 Hours) Vital Signs Temp Pulse Pulse Resp BP BP Pulse Ox 01/29/21 07:21 37 C 96 H 16 157/98 H 95 01/29/21 07:14 94 H 01/29/21 04:00 36.8 C 99 H 18 174/123 H 161/92 H 97 01/29/21 01:32 97 H 01/28/21 22:00 36.4 C L 87 18 165/115 H 160/110 H 97 Resident Activity Tracking Resident Involvement: Resident Care Provided Care Provided: Adult Hospital Medicine (1) Alcohol withdrawal Complication of substance-induced condition: uncomplicated Qualified Code(s): F10.230 - Alcohol dependence with withdrawal, uncomplicated
[2021-01-29] MEDS ORDERED: NALTREXONE HCL 50 MG TAB PO SCH (12:30)
[2021-01-29 15:36] VITALS: BP 138/91; TEMP 98.6; O2SAT 93
[2021-01-29 17:55] VITALS: PULSE 86
[2021-01-30] MEDS ORDERED: GABAPENTIN 400 MG CAP PO SCH
[2021-01-31] MEDS ORDERED: GABAPENTIN 400 MG CAP PO SCH (12:00)
== END 2021-01-29 18:38 | disposition home or self-care (01) | DRG 897 ==
LOC: 2N 15:17 → ED 15:17 → SUATTDRO 19:19 → 2N 21:59

== ENCOUNTER 2024-03-14 15:51 | Inpatient (IN) ==
[2024-03-14] MEDS: LORazepam 1 MG/1 ML SYR ED Inj Use IV STA (16:05)
[2024-03-14] MEDS: SODIUM CHLORIDE 0.9% 1,000 ML IV ONE (16:05)
[2024-03-14 16:34] LABS: Basophils # (auto) 0.03 K/uL (0.00-0.20); Basophils % (auto) 0.4 %; Eosinophils # (auto) 0.01 K/uL (0.00-0.50); Eosinophils % (auto) 0.1 %; Hematocrit (blood only) 41.9 % (42.0-52.0); Hemoglobin 15.1 g/dl (14.0-18.0); Immature Granulocytes # (auto) 0.06 K/uL (0.01-0.20); Immature Granulocytes % (auto) 0.7 %; Lymphocytes # (auto) 0.41 K/uL (1.20-3.40); Lymphocytes % (auto) 4.9 %; Mean Corpuscular Hemoglobin 30.8 pg (25.0-34.0); Mean Corpuscular Volume 85.5 fL (80.0-100.0); Mean Platelet Volume 9.4 fL (9.4-12.4); Monocytes # (auto) 0.77 K/uL (0.11-0.59); Monocytes % (auto) 9.1 %; Neutrophils # (auto) 7.15 K/uL (1.40-6.50); Neutrophils % (auto) 84.8 %; Platelet Count 101 K/uL (130-400); RDW Standard Deviation 40.1 fL (36.4-46.3); White Blood Count 8.43 K/ul (4.8-10.8)
--- NOTE | 2024-03-14 16:40 | CT Scan Report ---
HEAD CT NONCONTRAST CT DOSE: 1748.04 mGy.cm HISTORY: Trauma TECHNIQUE: Multiaxial CT images of the head were performed without the use of intravenous contrast. A utomated exposure control was utilized for this study. A dose lowering technique was utilized adheri ng to the principles of ALARA. Comparison: None. Findings: The paranasal sinuses and mastoid air cells are clear. The calvarium and skull base are int act. The ventricles and sulci are within normal limits. There is no mass, hematoma, midline shift, or acute infarct. Impression: No acute intracranial abnormality. ACT 112: Negative or not required by law. Electronically signed by: Raul Mariee M.D. 03/14/2024 4:39 PM
--- NOTE | 2024-03-14 16:46 | CT Scan Report ---
CT cervical spine wo con CLINICAL HISTORY: Trauma TECHNIQUE: Multidetector row helical CT of the cervical spine was performed without administration of intravenous contrast. Coronal and sagittal reformations were obtained. Automated dose lowering techn iques and/or adjustment according to patient size were utilized for this exam. Comparison: None available at the time of this dictation. FINDINGS: No acute fractures or subluxations are identified. Degenerative changes are seen in the visualized sp ine. The alignment is normal. Soft tissues are unremarkable. IMPRESSION: No evidence of acute bony injury. ACT 112: Negative or not required by law. Electronically signed by: Alejandro Sheridan M.D. 03/14/2024 4:45 PM
[2024-03-14 16:49] LABS: Albumin Globulin Ratio 1.6 (0.9-2); BUN Creatinine Ratio 9.5 (10-20); Bilirubin,Total 1.7 mg/dl (0.2-1.0); Calcium 10.5 mg/dl (8.6-10.3); Creatinine Clr Calc Pharmacy 84.7 ml/min; Est GFR (Non-African American) 75.1 ml/min; Globulin 3.1 gm/dl (2.5-4.0); Total Protein 8.1 gm/dl (6.0-8.3)
[2024-03-14 17:01] LABS: Partial Thromboplastin Ratio 0.8; Partial Thromboplastin Time 21 Seconds (21-31)
[2024-03-14] MEDS ORDERED: LORazepam 2 MG/1 ML VIAL IV PRN (17:30)
[2024-03-14] MEDS ORDERED: LORazepam 1 MG TAB PO PRN ×3 (17:30)
[2024-03-14] MEDS ORDERED: Ativan PO Alcohol Withdrawal--Active Protocol PO PRN (17:30)
[2024-03-14] MEDS ORDERED: PHENobarbital PO Alcohol Withdrawal PO STA (17:48)
[2024-03-14] MEDS ORDERED: PHENobarbital sodium 65 MG/ML VIAL IV STA (17:48)
--- NOTE | 2024-03-14 17:52 | XRay Report ---
XR pelvis 1-2V routine CLINICAL HISTORY: trauma TECHNIQUE: A single frontal view of the pelvis was obtained. Comparison: None available at the time of this dictation. FINDINGS: There is no evidence of an acute fracture. Joint spaces are well-preserved. No soft tissue abnormalit y is seen. IMPRESSION: No evidence of acute osseous injury. ACT 112: Negative or not required by law. Electronically signed by: Alejandro Sheridan M.D. 03/14/2024 5:51 PM
[2024-03-14] MEDS ORDERED: LORazepam 2 MG/1 ML VIAL IV STA (17:58)
--- NOTE | 2024-03-14 17:58 | XRay Report ---
XR chest 1V portable HISTORY: trauma COMPARISON: Chest 01/27/2021. FINDINGS: The lungs are clear. Cardiac silhouette is normal in size. No pleural effusions. No pneumot horax. IMPRESSION: No acute process. ACT 112: Negative or not required by law. Electronically signed by: Raul Mariee M.D. 03/14/2024 5:57 PM
--- NOTE | 2024-03-14 18:10 | History & Physical Report ---
Date of Service March 14, 2024 Assessment & Plan (1) Alcohol withdrawal: Plan: Last alcohol drink 26 hours ago. AWSS 12 despite 2mg lorazepam given in the ER. Phenobarbital 520mg IV infusion (approx 7mg/kg). Given this is less than 10mg/kg No additional for 30 minutes. Additional 130mg IV q15 PRN for RASS > 0 for next 2 hours Additional 130mg IV q6h PRN for RASS > 0 following this Phenobarbital PO taper LAN starting tomorrow Thiamine Folate (2) Hypertensive urgency: Plan: Secondary to alcohol withdrawal Once alcohol withdrawal improved and RASS 0, will start hydralazine if still and issue (3) Anxiety: Plan VTE Prophylaxis - Lovenox 40mg SQ daily Diet - NPO currently, will reassess following phenobarbital initial infusion Disposition - admit to PCU (2E or ICU overflow) Admission and Anticipated Discharge Date Admission Date: March 14, 2024 History of Present Illness Chief Complaint: Alcohol withdrawal Primary Care Provider: NO PCP Danny Park is a 48-year-old male with alcohol use disorder who presents to the ER with alcohol withdrawal. He reports nausea, vomiting, tremors, anxiety, insomnia, diaphoresis and palpitations. His last drink was noon yesterday. He has been drinking beer daily prior to this. He reports falling and possibly hitting his head but no loss of consciousness. He feels these are similar symptoms to prior alcohol withdrawals. He has a significant history alcohol withdrawal seizures. He denies any abdominal pain, diarrhea, fever or chills. Allergies Allergy/AdvReac Type Severity Reaction Status Date / Time animal dander Allergy Intermediate Itching Unverified 03/14/24 17:54 Penicillins Allergy Mild Hives Verified 03/14/24 17:54 Home Medications Medication Instructions Recorded Confirmed Type cholecalciferol (vitamin D3) 25 1,000 mcg PO DAILY 12/08/20 03/14/24 History mcg (1,000 unit) tablet (Vitamin D3) multivitamin 1 tab PO DAILY 12/08/20 03/14/24 History vitamin B complex 1 tab PO DAILY 12/08/20 03/14/24 History vitamin E 268 mg (400 unit) capsule 400 unit PO DAILY 12/10/20 03/14/24 History ashwagandha root extract 300 mg 300 mg PO DAILY 03/14/24 03/14/24 History capsule loratadine 10 mg tablet (Claritin) 10 mg PO DAILY 03/14/24 03/14/24 History Past Med/Surg History Problem List (Updated 03/15/24 @ 07:24 by Aashish Chan MD) Hypertensive urgency CHI (closed head injury) (Acute) Alcohol withdrawal (Acute) Anxiety (Acute) Alcohol use Alcohol abuse (Chronic) Depression (Chronic) Medical History Lab test negative for COVID-19 virus Alcohol withdrawal Pre-syncope Surgical History History of tonsillectomy Social History Smoking Status: Never smoker Second Hand Exposure: No; Do You Dip or Chew Tobacco: No; Hx Alcohol Use: Yes Alcohol type: beer and hard liquor Hx Substance Use: No Preferred Language: Luxembourgish Communication Ability: Effective Entry Driver Operator Required: No Beliefs That Will Affect Care: None Current Living Situation: Alone Current Living Situation Comment: lives at home alone in apartment Other Information That Helps Us Care for You: No Feels Safe at Home: Hesitant to Answer Safety Concerns: Feels Safe At This Time Assistive Devices: None Review of Systems Review of Systems: All systems reviewed & are unremarkable except as noted in HPI & below Physical Exam Constitutional: well developed and + acute distress (restlessness); + not well nourished Eyes: PERRL, conjunctivae normal, anicteric sclerae ENMT: external ear and nose normal, oropharynx normal Respiratory: normal respiratory effort, lungs clear to auscultation Cardiovascular: Rate/Rhythm: regular rhythm and + tachycardic Heart Sounds: no murmur Extremities: normal capillary refill and + pedal edema (trace b/l edema); no calf tenderness Gastrointestinal (Abdomen): normal bowel sounds, soft, nontender, no hepatosplenomegaly Skin: no rashes, warm and dry Neurologic: moves all extremities and awake; not confused Psychiatric: Orientation: alert and oriented x 3 Motor Behavior: + psychom otor agitation Results & Data Results & Data Vital Signs (Past 12 Hours) Vital Signs Temp Pulse Pulse Resp BP BP Pulse Ox 03/14/24 18:00 111 H 18 178/114 H 97 03/14/24 16:56 116 H 03/14/24 16:34 36.8 C 115 H 18 169/104 H 98 03/14/24 16:16 97 03/14/24 16:16 36.8 C 116 H 21 169/104 H 99 03/14/24 16:16 36.8 C 111 H 18 169/104 H 98 03/14/24 16:16 108 H 18 98 03/14/24 16:16 36.8 C 109 H 18 169/104 H 98 O2 Del Method 03/14/24 18:00 03/14/24 16:56 03/14/24 16:34 Room Air 03/14/24 16:16 Room Air 03/14/24 16:16 Room Air 03/14/24 16:16 Room Air 03/14/24 16:16 Room Air 03/14/24 16:16 Room Air Laboratory Results Reviwed Diagnostic Findings HEAD CT NONCONTRAST CT DOSE: 1748.04 mGy.cm HISTORY: Trauma TECHNIQUE: Multiaxial CT images of the head were performed without the use of intravenous contrast. Automated exposure control was utilized for this study. A dose lowering technique was utilized adhering to the principles of ALARA. Comparison: None. Findings: The paranasal sinuses and mastoid air cells are clear. The calvarium and skull base are intact. The ventricles and sulci are within normal limits. There is no mass, hematoma, midline shift, or acute infarct. Impression: No acute intracranial abnormality. CT cervical spine wo con CLINICAL HISTORY: Trauma TECHNIQUE: Multidetector row helical CT of the cervical spine was performed without administration of intravenous contrast. Coronal and sagittal reformations were obtained. Automated dose lowering techniques and/or adjustment according to patient size were utilized for this exam. Comparison: None available at the time of this dictation. FINDINGS: No acute fractures or subluxations are identified. Degenerative changes are seen in the visualized spine. The alignment is normal. Soft tissues are unremarkable. IMPRESSION: No evidence of acute bony injury. XR chest 1V portable HISTORY: trauma COMPARISON: Chest 01/27/2021. FINDINGS: The lungs are clear. Cardiac silhouette is normal in size. No pleural effusions. No pneumothorax. IMPRESSION: No acute process. XR pelvis 1-2V routine CLINICAL HISTORY: trauma TECHNIQUE: A single frontal view of the pelvis was obtained. Comparison: None available at the time of this dictation. FINDINGS: There is no evidence of an acute fracture. Joint spaces are well-preserved. No soft tissue abnormality is seen. IMPRESSION: No evidence of acute osseous injury. Medications Administered ER Medications Given: Lorazepam 2mg IV NSS 1L bolus Banana bag 1L bolus ECG Rate (beats per minute): 108 Rhythm: sinus tachycardia Findings: + LAFB and + RBBB Comparison ECG Date: from (January 27, 2021) Change: the following changes noted (RBBB replaced incomplete RBBB) Code Status & VTE Plan Code Status Full VTE Prophylaxis Plan VTE Prophylaxis will be ordered: Yes PG Care Time/CCT Total # of Minutes Spent Total Time Spent with Patient: Total time spent is greater than 50% in coordination of care (as documented) at patient's floor/unit and/or counseling patient: Coding Level of Care Code 66215 INT INP/OBS CARE 3/75MIN Diagnoses Alcohol withdrawal F10.230 Complication of substance-induced condition: uncomplicated Hypertensive urgency I16.0 Anxiety F41.9 (1) Alcohol withdrawal Complication of substance-induced condition: uncomplicated Qualified Code(s): F10.230 - Alcohol dependence with withdrawal, uncomplicated
[2024-03-14] MEDS: LORazepam 2 MG/1 ML VIAL IV STA (18:44)
[2024-03-14] MEDS: ONDANSETRON INJ 2 MG/ML 2 ML VIAL IV STA (18:48)
[2024-03-14] MEDS: MULTI-VITAMIN INFUSION 10 ML, THIAMINE HCL 100 MG, FOLIC ACID 1 MG in SODIUM CHLORIDE 0... IV ONE (18:58)
--- NOTE | 2024-03-14 19:10 | Emergency Department Note ---
History of Present Illness General Chief complaint: Trauma Time Seen by Provider: 03/14/24 15:55 History of Present Illness Provider complaint: Alcohol withdrawal trauma 48-year-old male alcoholic presents emergency department for alcohol withdrawals. Patient states he binge drinks and last had a drink yesterday. Patient states he feels like he is going into withdrawals and might have a seizure. Patient reports multiple alcohol withdrawal seizures in the past. No recent seizure however the patient does state that he fell earlier today and is not sure if he hit his head. He is reporting some headache. No blood thinners. Patient reports no abdominal pain but does report tremor. He reports nausea and vomiting. No hematemesis coffee-ground emesis or bilious vomiting. No melena or hematochezia. Home Medications Medication Instructions Recorded Confirmed Type cholecalciferol (vitamin D3) 25 1,000 mcg PO DAILY 12/08/20 03/14/24 History mcg (1,000 unit) tablet (Vitamin D3) multivitamin 1 tab PO DAILY 12/08/20 03/14/24 History vitamin B complex 1 tab PO DAILY 12/08/20 03/14/24 History vitamin E 268 mg (400 unit) capsule 400 unit PO DAILY 12/10/20 03/14/24 History ashwagandha root extract 300 mg 300 mg PO DAILY 03/14/24 03/14/24 History capsule loratadine 10 mg tablet (Claritin) 10 mg PO DAILY 03/14/24 03/14/24 History Allergies Allergy/AdvReac Type Severity Reaction Status Date / Time animal dander Allergy Intermediate Itching Unverified 03/14/24 17:54 Penicillins Allergy Mild Hives Verified 03/14/24 17:54 Past Med/Surg History Problem List (Updated 03/14/24 @ 19:25 by John Paul Feliz MD) CHI (closed head injury) (Acute) Alcohol withdrawal (Acute) Anxiety (Acute) Alcohol use Alcohol abuse (Chronic) Depression (Chronic) Medical History Lab test negative for COVID-19 virus Alcohol withdrawal Pre-syncope Surgical History History of tonsillectomy Social History Smoking Status: Never smoker Second Hand Exposure: No; Do You Dip or Chew Tobacco: No; Hx Alcohol Use: Yes Alcohol type: beer, wine and hard liquor Hx Substance Use: No Preferred Language: Korean Communication Ability: Effective 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 Beliefs That Will Affect Care: None Current Living Situation: Alone Feels Safe at Home: Yes Assistive Devices: None Physical Exam Vital Signs Vital Signs - 24 hr 03/14/24 16:16 03/14/24 16:16 03/14/24 16:16 Temperature 36.8 C 36.8 C Temperature Source Oral Pulse Rate 109 H 108 H 111 H Pulse Rate [Right Finger] Respiratory Rate 18 18 18 Respiratory Effort / Characteristics Non-Labored Spontaneous Blood Pressure 169/104 H 169/104 H Blood Pressure [Right Arm] Blood Pressure Mean 125 Blood Pressure Mean [Right Arm] Blood Pressure Position Lying Blood Pressure Position [Right Arm] Pulse Oximetry 98 98 98 Oxygen Delivery Method Room Air Room Air Room Air Sepsis Recent Fever Within 48 Hours No Sepsis New/Unexplained Change in Mental Status No Sepsis Action Taken by Nursing No Action Required 03/14/24 16:16 03/14/24 16:16 03/14/24 16:34 Temperature 36.8 C 36.8 C Temperature Source Oral Oral Pulse Rate Pulse Rate [Right Finger] 116 H 115 H Respiratory Rate 21 18 Respiratory Effort / Characteristics Non-Labored Spontaneous Non-Labored Spontaneous Blood Pressure Blood Pressure [Right Arm] 169/104 H 169/104 H Blood Pressure Mean Blood Pressure Mean [Right Arm] 125 125 Blood Pressure Position Blood Pressure Position [Right Arm] Sitting Lying Pulse Oximetry 99 97 98 Oxygen Delivery Method Room Air Room Air Room Air Sepsis Recent Fever Within 48 Hours Sepsis New/Unexplained Change in Mental Status Sepsis Action Taken by Nursing 03/14/24 16:56 03/14/24 18:00 03/14/24 18:24 Temperature Temperature Source Pulse Rate 116 H 111 H Pulse Rate [Right Finger] 111 H Respiratory Rate 18 13 Respiratory Effort / Characteristics Non-Labored Spontaneous Blood Pressure 178/114 H Blood Pressure [Right Arm] 178/114 H Blood Pressure Mean Blood Pressure Mean [Right Arm] 135 Blood Pressure Position Blood Pressure Position [Right Arm] Lying Pulse Oximetry 97 Oxygen Delivery Method Sepsis Recent Fever Within 48 Hours Sepsis New/Unexplained Change in Mental Status Sepsis Action Taken by Nursing Physical Exam HENT: Exam performed. - Head: Normocephalic and atraumatic. - Right Ear: External ear normal. No mastoid erythema - Left Ear: External ear normal. No mastoid erythema - Mouth/Throat: The oropharynx is clear and moist. No trismus in the jaw. No dental abscesses or uvula swelling. No oropharyngeal exudate or tonsillar abscesses. EYES: Conjunctivae and EOM are normal. Pupils are equal, round, and reactive to light. Right eye exhibits no discharge. Left eye exhibits no discharge. No scleral icterus. NECK: Normal range of motion. Neck supple. No JVD present. No spinous process tenderness present. CV: Tachycardic rate, regular rhythm, normal heart sounds and intact distal pulses. There is no peripheral edema. Palpable radial pulses bue. PULM/CHEST: Effort normal and breath sounds normal. No respiratory distress. No stridor. He has no wheezes. He has no rales. ABD: The abdomen is soft. There is no tenderness. There is no rebound, no guarding. MUSC/SKEL: Pelvis stable. NEURO: He is alert and oriented to person, place, and time. Patient is tremulous. He has normal strength. No cranial nerve deficit or sensory deficit. GCS eye subscore is 4. GCS verbal subscore is 5. GCS motor subscore is 6. SKIN: Diaphoretic. Procedures FAST Exam FAST Exam 1: Fluid in Morison's pouch: No Fluid in Splenorenal Junction: No Fluid around bladder, Transverse view: No Fluid around bladder, Sagittal view: No Fluid in Pericardial Sac: No Gross Wall Motion Abnormality: No Study normal for this patient: Yes Course Course 1555: The patient was evaluated in room C7. A complete history and physical exam was performed Cardiac monitoring: An order was placed for continuous cardiac monitoring. The monitor shows a rate of 130 with sinus tachycardia rhythm interpreted by me Patient is tremulous and it appears like he might be going through DTs. Ativan 2 mg IV ordered for patient patient reports fall. Trauma alert called. 1625: Patient's tremors improved with IV Ativan. 1730: Patient remains tachycardic diaphoresis is improved. Labs show white blood cell count 8.43. Coagulation studies within normal limits. Total bilirubin 1.7 at baseline. AST 59 ALT 35 lipase 19. Alcohol less than 10. Imaging shows no acute traumatic injury. Patient started on a AWSS scale and repeat doses Ativan per protocol. Patient will be admitted to the [facility] team. Administered Medications Multivitamins 10 ml/ Thiamine HCl 100 mg/ Folic Acid 1 mg/Sodium Chloride 1,011.2 mls @ 500 mls/hr IV .Q2H2M ONE Stop: 03/14/24 19:31 Last Admin: 03/14/24 18:58 Dose: 500 mls/hr Documented By: FCO Discontinued Medications Sodium Chloride (Nss) 1,000 mls @ 999 mls/hr IV .Q1H1M ONE Stop: 03/14/24 16:58 Last Infusion: 03/14/24 17:23 Dose: Infused Documented By: Admin: 03/14/24 16:05 Dose: 999 mls/hr Documented By: FCO Phenobarbital Sodium 520 mg/ (Sodium Chloride) 54 mls @ 108 mls/hr IV NOW STA Stop: 03/14/24 18:37 Last Admin: 03/14/24 18:24 Dose: 108 mls/hr Documented By: FCO Lorazepam (Lorazepam 1 Mg/1 Ml Syr Ed Inj Use) 2 mg IV ONE STA Stop: 03/14/24 15:59 Last Admin: 03/14/24 16:05 Dose: 2 mg Documented By: FCO Lorazepam (Lorazepam 2 Mg/1 Ml Vial) 2 mg IV NOW STA Stop: 03/14/24 18:13 Last Admin: 03/14/24 18:44 Dose: Not Given Documented By: SUDHA Ondansetron HCl (Ondansetron Inj 2 Mg/Ml 2 Ml Vial) 4 mg IV NOW STA Stop: 03/14/24 18:03 Last Admin: 03/14/24 18:48 Dose: 4 mg Documented By: FCO Critical Care Time Critical Care Time: Yes Total Critical Care Time: 64 I have personally spent greater than 64 minutes of critical care time in the direct management of this patient. This includes bedside care, interpretation of diagnostic studies, and testing, discussion with consultants, patient, and family members, and other required patient management activities. This 64 minutes is in excess of all separately billable procedures. Medical Decision Making Laboratory Data Attestation: I reviewed the patient's lab results. 03/14/24 Unknown 03/14/24 Unknown Lab Results 03/14/24 03/14/24 03/14/24 Range/Units 16:02 16:34 Unknown WBC 8.43 (4.8-10.8) K/ul RBC 4.90 (4.70-6.10) M/uL Hgb 15.1 (14.0-18.0) g/dl Hct 41.9 L (42.0-52.0) % MCV 85.5 (80.0-100.0) fL MCH 30.8 (25.0-34.0) pg MCHC 36.0 (32.0-36.0) g/dL RDW Std Deviation 40.1 (36.4-46.3) fL RDW Coeff of Theron 13.0 (11.5-14.5) % Plt Count 101 L (130-400) K/uL MPV 9.4 (9.4-12.4) fL Immature Gran % (Auto) 0.7 % Neut % (Auto) 84.8 % Lymph % (Auto) 4.9 % [place] % (Auto) 9.1 % Eos % (Auto) 0.1 % Baso % (Auto) 0.4 % Neut # (Auto) 7.15 H (1.40-6.50) K/uL Lymph # (Auto) 0.41 L (1.20-3.40) K/uL [place] # (Auto) 0.77 H (0.11-0.59) K/uL Eos # (Auto) 0.01 (0.00-0.50) K/uL Baso # (Auto) 0.03 (0.00-0.20) K/uL Immature Gran # (Auto) 0.06 (0.01-0.20) K/uL PT 11.0 (9.0-12.0) Seconds INR 1.0 (0.9-1.1) APTT 21 (21-31) Seconds PTT Ratio 0.8 Sodium 135 L (136-145) mmol/L Potassium 4.0 (3.5-5.1) mmol/L Chloride 96 L (98-107) mmol/L Carbon Dioxide 17 L (21-32) mmol/L Anion Gap 22 H (3-11) BUN 11 (6-23) mg/dl Creatinine 1.16 (0.6-1.4) mg/dl Est Cr Clr Drug Dosing 84.7 ml/min Est GFR ( Amer) 87.0 ml/min Est GFR (Non-Af Amer) 75.1 ml/min BUN/Creatinine Ratio 9.5 L (10-20) Glucose 124 H (70-99(Fasting)) mg/dl POC Glucose 133 H (70-99) mg/dl Calcium 10.5 H (8.6-10.3) mg/dl Total Bilirubin 1.7 H (0.2-1.0) mg/dl AST 59 H (13-39) U/L ALT 35 (7-52) U/L Alkaline Phosphatase 66 (34-104) U/L Total Protein 8.1 (6.0-8.3) gm/dl Albumin 5.0 (3.4-5.0) gm/dl Globulin 3.1 (2.5-4.0) gm/dl Albumin/Globulin Ratio 1.6 (0.9-2) Amylase 94 (25-115) U/L Lipase 19 (11-82) U/L Ethyl Alcohol mg/dL < 10.0 (<10.0) mg/dl Blood Type O Negative Antibody Screen NEGATIVE Imaging Data Attestation: I personally reviewed and interpreted this imaging study as follows: My Impression: Chest x-ray: Chest x-ray negative. Airway clear. No pneumothorax. No consolidation. No cardiomegaly or cephalization.. No free air under the diaphragm. No fractures of the skeletal structures. Pelvis x-ray: No acute fracture or dislocation. Radiologist's Impression: Pelvis X-Ray 03/14/24 15:58 XR pelvis 1-2V routine CLINICAL HISTORY: trauma TECHNIQUE: A single frontal view of the pelvis was obtained. Comparison: None available at the time of this dictation. FINDINGS: There is no evidence of an acute fracture. Joint spaces are well-preserved. No soft tissue abnormality is seen. IMPRESSION: No evidence of acute osseous injury. ACT 112: Negative or not required by law. Electronically signed by: Alejandro Sheridan M.D. 03/14/2024 5:[address] 03/14/24 15:59 CT cervical spine wo con CLINICAL HISTORY: Trauma TECHNIQUE: Multidetector row helical CT of the cervical spine was performed without administration of intravenous contrast. Coronal and sagittal reformations were obtained. Automated dose lowering techniques and/or adjustment according to patient size were utilized for this exam. Comparison: None available at the time of this dictation. FINDINGS: No acute fractures or subluxations are identified. Degenerative changes are seen in the visualized spine. The alignment is normal. Soft tissues are unremarkable. IMPRESSION: No evidence of acute bony injury. ACT 112: Negative or not required by law. Electronically signed by: Alejandro Sheridan M.D. 03/14/2024 4:45 PM Chest X-Ray 03/14/24 15:59 XR chest 1V portable HISTORY: trauma COMPARISON: Chest 01/27/2021. FINDINGS: The lungs are clear. Cardiac silhouette is normal in size. No pleural effusions. No pneumothorax. IMPRESSION: No acute process. ACT 112: Negative or not required by law. Electronically signed by: Raul Mariee M.D. 03/14/2024 5:[address] 03/14/24 15:[address] DOSE: 1748.04 mGy.cm HISTORY: Trauma TECHNIQUE: Multiaxial CT images of the head were performed without the use of intravenous contrast. Automated exposure control was utilized for this study. A dose lowering technique was utilized adhering to the principles of ALARA. Comparison: None. Findings: The paranasal sinuses and mastoid air cells are clear. The calvarium and skull base are intact. The ventricles and sulci are within normal limits. There is no mass, hematoma, midline shift, or acute infarct. Impression: No acute intracranial abnormality. ACT 112: Negative or not required by law. Electronically signed by: Raul Mariee M.D. 03/14/2024 4:39 PM ECG Data Attestation: I personally reviewed and interpreted this ECG as follows: Rate (beats per minute): [address] segments: + Normal ST segments Additional Comments: [place] 168 QRS 144 QTc 509. Bifascicular block present. MDM Narrative 1555: The patient was evaluated in room C7. A complete history and physical exam was performed Cardiac monitoring: An order was placed for continuous cardiac monitoring. The monitor shows a rate of 130 with sinus tachycardia rhythm interpreted by me Patient is tremulous and it appears like he might be going through DTs. Ativan 2 mg IV ordered for patient patient reports fall. Trauma alert called. 1625: Patient's tremors improved with IV Ativan. 1730: Patient remains tachycardic diaphoresis is improved. Labs show white blood cell count 8.43. Coagulation studies within normal limits. Total bilirubin 1.7 at baseline. AST 59 ALT 35 lipase 19. Alcohol less than 10. Imaging shows no acute traumatic injury. Patient started on a AWSS scale and repeat doses Ativan per protocol. Patient will be admitted to the [facility] hospitalist team. Impression & Plan Alcohol withdrawal, Alcohol abuse, CHI (closed head injury) Discharge Plan Visit Data Chief Complaint: Trauma ED Provider: John Paul Feliz Discharge Problem: Alcohol withdrawal, Alcohol abuse, CHI (closed head injury) Patient Disposition: Admitted As Inpatient Forms Stand Alone Forms: My [facility] Prescriptions Prescriptions: No Action vitamin E 400 unit Capsule 400 unit PO DAILY multivitamin Tablet 1 tab PO DAILY vitamin B complex Tablet 1 tab PO DAILY cholecalciferol (vitamin D3) [Vitamin D3] 25 mcg (1,000 unit) Tablet 1,000 mcg PO DAILY loratadine [Claritin] 10 mg Tablet 10 mg PO DAILY ashwagandha root extract 300 mg Capsule 300 mg PO DAILY Referrals Referrals: PCP,NO [Primary Care Provider] - Discharge Problem: Alcohol withdrawal Qualifiers: Complication of substance-induced condition: with unspecified complication Q ualified Code(s): F10.939 - Alcohol use, unspecified with withdrawal, unspecified CHI (closed head injury) Qualifiers: Encounter type: initial encounter Qualified Code(s): S09.90XA - Unspecified injury of head, initial encounter
[2024-03-14] MEDS: PHENobarbital sodium 65 MG/ML VIAL IV PRN ×2 (20:06→22:18)
[2024-03-14] MEDS: PHENobarbital sodium 65 MG/ML VIAL IV ONE (20:33)
[2024-03-14] MEDS: LACTATED RINGER'S 1,000 ML IV ONE (22:23)
[2024-03-14] MEDS: LACTATED RINGER'S 1,000 ML IV SCH (23:26)
[2024-03-14] MEDS ORDERED: hydrALAZINE HCL 20 MG/ML VIAL IV PRN (23:32)
[2024-03-14] MEDS: ENOXAPARIN INJ 40 MG/0.4 ML SYR SQ SCH (23:35)
[2024-03-15 00:29] LABS: Appearance Urine Cloudy (Clear); Bacteria Urine Automated None Seen (None Seen); Bilirubin Urine Negative (Negative); Blood Urine Negative (Negative); Cast Urine Automated 0-2 /lpf (0-2); Color Urine Yellow; Epithelial Cell Urine Auto 0-2 /hpf (0-2); Glucose Urine UA Negative (Negative); Ketones Urine Trace (Negative); Leukocyte Esterase Urine Negative (Negative); Nitrite Urine Negative (Negative); Protein Urine 1+ (Negative); RBC Urine Automated 0-2 /hpf (0-2); Urobilinogen Urine Negative (Negative); WBC Urine Automated 0-5 /hpf (0-5)
[2024-03-15] MEDS ORDERED: ONDANSETRON INJ 2 MG/ML 2 ML VIAL IV PRN (01:05)
[2024-03-15 06:35] LABS: Albumin Globulin Ratio 1.6 (0.9-2); Albumin Level 4.4 gm/dl (3.4-5.0); BUN Creatinine Ratio 11.1 (10-20); Bilirubin,Total 1.8 mg/dl (0.2-1.0); Creatinine Clr Calc Pharmacy 119.3 ml/min; Est GFR (African American) 118.3 ml/min; Est GFR (Non-African American) 102.1 ml/min; Globulin 2.7 gm/dl (2.5-4.0); Potassium 3.6 mmol/L (3.5-5.1); Total Protein 7.1 gm/dl (6.0-8.3)
[2024-03-15 06:52] LABS: Basophils # (auto) 0.02 K/uL (0.00-0.20); Basophils % (auto) 0.4 %; Eosinophils # (auto) 0.08 K/uL (0.00-0.50); Eosinophils % (auto) 1.7 %; Hematocrit (blood only) 40.6 % (42.0-52.0); Hemoglobin 14.2 g/dl (14.0-18.0); Immature Granulocytes # (auto) 0.03 K/uL (0.01-0.20); Immature Granulocytes % (auto) 0.6 %; Lymphocytes # (auto) 0.63 K/uL (1.20-3.40); Lymphocytes % (auto) 13.2 %; Mean Corpuscular Hemoglobin 30.7 pg (25.0-34.0); Mean Corpuscular Volume 87.7 fL (80.0-100.0); Mean Platelet Volume 9.3 fL (9.4-12.4); Monocytes # (auto) 0.72 K/uL (0.11-0.59); Neutrophils # (auto) 3.31 K/uL (1.40-6.50); Neutrophils % (auto) 69.1 %; Platelet Count 72 K/uL (130-400); Platelet Estimate Decreased (Normal); RDW Coefficient of Variation 13.1 % (11.5-14.5); RDW Standard Deviation 41.6 fL (36.4-46.3); Red Blood Count 4.63 M/uL (4.70-6.10); White Blood Count 4.79 K/ul (4.8-10.8)
[2024-03-15] MEDS ORDERED: LORazepam 2 MG/1 ML VIAL IV PRN (09:10)
[2024-03-15] MEDS ORDERED: Ativan IV Alcohol Withdrawal--Active Protocol IV PRN (09:10)
[2024-03-15 09:34] LABS: Magnesium 1.8 mg/dl (1.7-2.4)
--- NOTE | 2024-03-15 12:21 | Hospitalist Progress Note ---
Date of Service March 15, 2024 Assessment & Plan (1) Alcohol withdrawal: Plan: Last alcohol drink 26 hours prior to admission. AWSS 12 despite 2mg lorazepam given in the ER.Was given 5mg IV ativan and then started on phenobarbital protocol with loading dose Add prn lorazepam for synergistic effect, monitor for sedation-none so far Dc prn phenobarb Improving Continue phenobarb po taper Monitor on tele, BPs improving/coming down COntinue IVFs Add thiamine 100mg po daily and folic acid 1 mg po daily, MVI 1 tab daily Will need counseling on cessation and ask CM to provide lists of EtOH rehab resources (2) Hypertensive urgency: Plan: Secondary to alcohol withdrawal, improving with phenobarb as above (3) Anxiety: Plan: chronic can be addressed after sober (4) Thrombocytopenia: Plan: platelets low in 70s likely from alcoholic fatty liver follow (5) Elevated LFTs: Plan: previous liver US in 2020 showed hepatomegaly and fatt yliver, likely from EtOH use check liver US, follow LFTs INR normal yesterday but platelets low continue EtOH cessation Plan VTE Prophylaxis - Lovenox 40mg SQ daily Disposition - continued stay on PCU Admission and Anticipated Discharge Date Admission Date: March 14, 2024 Subjective Pt feels better, less shaky. Denies headache, nausea, CP, SOB, abd pain. Has received some prn phenobarb. Tele with NSR rates 70-100s Physical Exam Constitutional: WD/WN, vitals as above Respiratory: normal respiratory effort, lungs clear to auscultation Cardiovascular: RRR, no murmur, no edema Gastrointestinal (Abdomen): Inspection/Auscultation: abdomen normal to inspection and normal bowel sounds; abdomen not distended Percussion/Palpation: abdomen soft and + hepatomegaly (mild, 3 cm past costal margin); abdomen nontender Neurologic: not confused, has a few myoclonic jerks Psychiatric: Orientation: alert, oriented to person, oriented to place, oriented to time and cooperative Results & Data Results & Data Vital Signs (Past 12 Hours) Vital Signs Temp Pulse Pulse Resp BP BP Pulse Ox 03/15/24 11:00 36.8 C 78 15 154/106 H 99 03/15/24 07:39 99 H 20 171/114 H 03/15/24 07:12 36.9 C 83 15 171/114 H 99 03/15/24 06:30 36.9 C 79 18 184/110 H 99 03/15/24 04:30 36.9 C 78 18 172/106 H 97 03/15/24 01:50 36.9 C 88 18 137/104 H 98 03/15/24 00:25 82 O2 Del Method 03/15/24 11:00 Room Air 03/15/24 07:39 03/15/24 07:12 Room Air 03/15/24 06:30 Room Air 03/15/24 04:30 Room Air 03/15/24 01:50 Room Air 03/15/24 00:25 Laboratory Results CBC, CMP, magnesium reviewed PG Care Time/CCT Total # of Minutes Spent Total Time Spent with Patient: Total time spent is greater than 50% in coordination of care (as documented) at patient's floor/unit and/or counseling patient: Coding Level of Care Code 96783 SUB INP/OBS CARE 2/35MIN Diagnoses Alcohol withdrawal F10.939 Complication of substance-induced condition: with unspecified complication Hypertensive urgency I16.0 Anxiety F41.9 Thrombocytopenia D69.6 Elevated LFTs R79.89 (1) Alcohol withdrawal Complication of substance-induced condition: with unspecified complication Qualified Code(s): F10.939 - Alcohol use, unspecified with withdrawal, unspecified
--- NOTE | 2024-03-15 13:08 | Electrocardiogram Report ---
Test Reason : Blood Pressure : */* mmHG Vent. Rate : 108 BPM Atrial Rate : 108 BPM P-R Int : 168 ms QRS Dur : 144 ms QT Int : 380 ms P-R-T Axes : 75 -77 81 degrees QTcB Int : 509 ms Sinus tachycardia Right bundle branch block Left anterior fascicular block Bifascicular block Septal infarct , age undetermined Abnormal ECG When compared with ECG of 27-Jan-2021 15:38, Right bundle branch block has replaced Incomplete right bundle branch block Confirmed by Dayron Perry ([id number]) on 03/15/2024 1:08:10 PM Referred By: REFERRED SELF Confirmed By: Dayron Perry
--- NOTE | 2024-03-15 14:48 | Ultrasound Report ---
ABDOMINAL ULTRASOUND, RIGHT UPPER QUADRANT HISTORY: elevated LFTs,alcohol use disorder. COMPARISON: Abdominal ultrasound 12/08/2020. FINDINGS: Pancreas: The visualized pancreas demonstrates a normal echotexture. Liver: The liver is echogenic consistent with fatty change. 17 cm in length. No hepatic masses. Gallbladder: No gallbladder wall thickening. Negative sonographic Tellez sign. A few small stones and sludge seen within the gallbladder. CBD: 4 mm. Right kidney: No hydronephrosis. IMPRESSION: 1. A few small stones and sludge within the gallbladder. No gallbladder wall thickening. 2. Normal caliber common bile duct. 3. Hepatic steatosis. ACT 112: Negative or not required by law. Electronically signed by: Raul Mariee M.D. 03/15/2024 2:47 PM
[2024-03-15] MEDS: PHENobarbitaL 30 MG TAB PO SCH (15:10)
[2024-03-15] MEDS: MULTIVITAMIN TAB PO SCH (15:10)
[2024-03-15] MEDS: THIAMINE HCL 100 MG TAB PO SCH (15:11)
[2024-03-15] MEDS: FOLIC ACID 1 MG TAB PO SCH (15:12)
[2024-03-15] MEDS: LORazepam 2 MG/1 ML VIAL IV PRN (15:37)
[2024-03-16 06:33] LABS: Basophils # (auto) 0.02 K/uL (0.00-0.20); Basophils % (auto) 0.5 %; Eosinophils # (auto) 0.11 K/uL (0.00-0.50); Eosinophils % (auto) 2.6 %; Hematocrit (blood only) 41.6 % (42.0-52.0); Hemoglobin 14.1 g/dl (14.0-18.0); Immature Granulocytes # (auto) 0.01 K/uL (0.01-0.20); Immature Granulocytes % (auto) 0.2 %; Lymphocytes % (auto) 16.8 %; Mean Corpuscular Hemoglobin 30.6 pg (25.0-34.0); Mean Corpuscular Hgb Conc 33.9 g/dL (32.0-36.0); Mean Corpuscular Volume 90.2 fL (80.0-100.0); Monocytes # (auto) 0.51 K/uL (0.11-0.59); Monocytes % (auto) 12.2 %; Neutrophils # (auto) 2.82 K/uL (1.40-6.50); Neutrophils % (auto) 67.7 %; Platelet Count 62 K/uL (130-400); RDW Standard Deviation 42.6 fL (36.4-46.3); Red Blood Count 4.61 M/uL (4.70-6.10); White Blood Count 4.17 K/ul (4.8-10.8)
[2024-03-16 06:36] LABS: Albumin Level 4.1 gm/dl (3.4-5.0); BUN Creatinine Ratio 13.1 (10-20); Bilirubin Direct 0.3 mg/dl (0-0.2); Bilirubin,Total 1.4 mg/dl (0.2-1.0); Calcium 8.9 mg/dl (8.6-10.3); Creatinine Clr Calc Pharmacy 129.1 ml/min; Est GFR (African American) 121.7 ml/min; Magnesium 1.7 mg/dl (1.7-2.4); Potassium 3.4 mmol/L (3.5-5.1)
[2024-03-16] MEDS: POTASSIUM CHLORIDE CRTAB 20 MEQ TABCR PO STA (09:14)
[2024-03-16] MEDS: MAGNESIUM SULFATE / D5W 1 GM/100 ML BAG IV SCH (09:14)
[2024-03-16 10:20] LABS: iSTAT Creatinine 1.2 mg/dl (0.6-1.3); iSTAT Hemoglobin 15.6 g/dl (14.0-18.0); iSTAT Ionized Calcium 1.1 mmol/l (1.12-1.32)
[2024-03-16] MEDS: PHENobarbitaL 30 MG TAB PO SCH (11:33)
--- NOTE | 2024-03-16 12:39 | Hospitalist Progress Note ---
Date of Service March 16, 2024 Assessment & Plan (1) Alcohol withdrawal: Plan: Last alcohol drink 26 hours prior to admission. AWSS 12 despite 2mg lorazepam given in the ER.Was given 5mg IV ativan and then started on phenobarbital protocol with loading dose Continue prn lorazepam for synergistic effect, monitor for sedation-none so far Improving Continue phenobarb po taper Monitor on tele, BPs improving/coming down No further IVFs needed Continue thiamine 100mg po daily and folic acid 1 mg po daily, MVI 1 tab daily Will need counseling on cessation and ask CM to provide lists of EtOH rehab resources-they have done this and he is contemplating this Replace mag and K+ today for mild hypokalemia and to optimize magnesium level seizure precautions (2) Hypertensive urgency: Plan: Secondary to alcohol withdrawal, improving with phenobarb as above (3) Anxiety: Plan: chronic can be addressed after sober (4) Thrombocytopenia: Plan: platelets low in 60-70s likely from alcoholic fatty liver follow CBC (5) Elevated LFTs: Plan: previous liver US in 2020 showed hepatomegaly and fatty liver, likely from EtOH use TBili and LFTs trending downward. Liver US here again shows fatty liver, otherwise small small gallstones follow LFTs INR normal on admit but platelets low continue EtOH cessation Plan VTE Prophylaxis - Lovenox 40mg SQ daily Disposition - continued stay on PCU, improving, dc in 2 days likely Admission and Anticipated Discharge Date Admission Date: March 14, 2024 Subjective Has c/o dry eyes. Otherwise is a little fidgety but is eating/drinking, moving bowels, no nausea. Feels shakiness is improved. He is not sure if he will attend any sort of EtOH rehab after discharge. BPs remain elevated but not symptomatic Tele with NSR normal rates Physical Exam Constitutional: WD/WN, vitals as above Eyes: + anicteric sclerae; no conjunctival abn ormality Respiratory: normal respiratory effort, lungs clear to auscultation Cardiovascular: RRR, no murmur, no edema Neurologic: mild tremulousness Psychiatric: Orientation: alert, oriented to person, oriented to place, oriented to time and cooperative Results & Data Results & Data Vital Signs (Past 12 Hours) Vital Signs Temp Pulse Pulse Resp BP Pulse Ox O2 Del Method 03/16/24 11:31 36.5 C 67 20 165/109 H 96 Room Air 03/16/24 08:43 161/97 H 03/16/24 08:03 36.7 C 86 20 182/98 H 98 Room Air 03/16/24 08:00 65 03/16/24 03:06 36.7 C 61 19 148/97 H 98 Room Air Laboratory Results CBC, CMP, magnesium reviewed Diagnostic Findings liver US reviewed PG Care Time/CCT Total # of Minutes Spent Total Time Spent with Patient: Total time spent is greater than 50% in coordination of care (as documented) at patient's floor/unit and/or counseling patient: Coding Level of Care Code 97151 SUB INP/OBS CARE 2/35MIN Diagnoses Alcohol withdrawal F10.939 Complication of substance-induced condition: with unspecified complication Hypertensive urgency I16.0 Anxiety F41.9 Thrombocytopenia D69.6 Elevated LFTs R79.89 (1) Alcohol withdrawal Complication of substance-induced condition: with unspecified complication Qualified Code(s): F10.939 - Alcohol use, unspecified with withdrawal, unspecified
[2024-03-16] MEDS ORDERED: ARTIFICIAL TEARS OPB PRN (12:56)
[2024-03-16] MEDS: LORazepam 2 MG/1 ML VIAL IV PRN (19:52)
[2024-03-17 07:02] LABS: Basophils # (auto) 0.03 K/uL (0.00-0.20); Basophils % (auto) 0.6 %; Eosinophils # (auto) 0.16 K/uL (0.00-0.50); Hematocrit (blood only) 39.7 % (42.0-52.0); Hemoglobin 14.1 g/dl (14.0-18.0); Immature Granulocytes # (auto) 0.02 K/uL (0.01-0.20); Immature Granulocytes % (auto) 0.4 %; Lymphocytes # (auto) 0.53 K/uL (1.20-3.40); Lymphocytes % (auto) 10.1 %; Mean Corpuscular Hemoglobin 31.2 pg (25.0-34.0); Mean Corpuscular Hgb Conc 35.5 g/dL (32.0-36.0); Mean Corpuscular Volume 87.8 fL (80.0-100.0); Mean Platelet Volume 10.5 fL (9.4-12.4); Monocytes # (auto) 0.67 K/uL (0.11-0.59); Monocytes % (auto) 12.7 %; Neutrophils # (auto) 3.86 K/uL (1.40-6.50); Neutrophils % (auto) 73.2 %; Platelet Count 80 K/uL (130-400); RDW Coefficient of Variation 12.9 % (11.5-14.5); RDW Standard Deviation 41.4 fL (36.4-46.3); Red Blood Count 4.52 M/uL (4.70-6.10); White Blood Count 5.27 K/ul (4.8-10.8)
[2024-03-17 07:18] LABS: Albumin Globulin Ratio 1.4 (0.9-2); Albumin Level 4.3 gm/dl (3.4-5.0); BUN Creatinine Ratio 18.5 (10-20); Bilirubin,Total 0.9 mg/dl (0.2-1.0); Calcium 9.1 mg/dl (8.6-10.3); Creatinine Clr Calc Pharmacy 132.9 ml/min; Est GFR (African American) 123.5 ml/min; Est GFR (Non-African American) 106.6 ml/min; Globulin 3.1 gm/dl (2.5-4.0); Magnesium 1.9 mg/dl (1.7-2.4); Potassium 3.6 mmol/L (3.5-5.1); Total Protein 7.4 gm/dl (6.0-8.3)
--- NOTE | 2024-03-17 17:53 | Hospitalist Progress Note ---
Date of Service March 17, 2024 Assessment & Plan (1) Alcohol withdrawal: Plan: With AUD with active withdrawal and a h/o seizures Last alcohol drink on03/13/24, EtOH level zero on admission. AWSS 12 despite 2mg lorazepam given in the ER.Was given 2mg IV ativan and then started on phenobarbital protocol with loading dose Continue prn lorazepam for synergistic effect, monitor for sedation-no excessive sedation and received 1 dose of rn ativan on 03/17 Improving but remains anxious, worried about his elevated BP. No known h/o HTN but likely related to EtOH withdrawal Continue phenobarb po taper-almost complete-last dose evening of 03/17 Monitor on tele, BPs remain somewhat elevated Continue thiamine 100mg po daily and folic acid 1 mg po daily, MVI 1 tab daily Counseled on EtOH cessation- CM provided lists of EtOH rehab resources-he does not feel he needs this and has quit "cold turkey" for months in the past. Encouraged AA meetings Could consider naltrexone for treatment as outpt seizure precautions (2) Hypertensive urgency: Plan: Secondary to alcohol withdrawal, improving with phenobarb as above Will need PCP f/u after EtOH withdrawal complete to see if has HTN (3) Elevated LFTs: Plan: previous liver US in 2020 showed hepatomegaly and fatty liver, likely from EtOH use TBili and LFTs trending downward/stable. Liver US here again shows fatty liver, otherwise small small gallstones follow LFTs INR normal on admit but platelets low-improving continue EtOH cessation (4) Thrombocytopenia: Plan: platelets low in 60-70s likely from alcoholic fatty liver, now improving to 80s with EtOH cessation follow CBC (5) Anxiety: Plan: chronic can be addressed after sober with PCP Plan VTE Prophylaxis - Lovenox 40mg SQ daily Disposition - continued stay on PCU, improving, discharge to home in 1-2 days if no longer requiring prn ativan. [employer] referred him for Medicaid application as he has no health insurance. He also needs a new PCP--> Dr. Lockhart will be rounding on him this weekend and perhaps she could be his PCP if both parties agreeable Admission and Anticipated Discharge Date Admission Date: March 14, 2024 Subjective Pt anxious about his elevated blood pressure again. No other symptoms. Is eating, drinking, steady on his feet, ambulating around the room. Seems a bit emotional/on the verge of tears at times. No seizures. Received IV ativan x 1 dose today Tele with NSR, IVCD, rates 60-80s Physical Exam Constitutional: WD/WN, vitals as above Eyes: + anicteric sclerae; no conjunctival abn ormality Respiratory: normal respiratory effort, lungs clear to auscultation Cardiovascular: RRR, no murmur, no edema Psychiatric: Orientation: alert, oriented to person, oriented to place, oriented to time and cooperative Results & Data Results & Data Vital Signs (Past 12 Hours) Vital Signs Temp Pulse Pulse Resp BP Pulse Ox O2 Del Method 03/17/24 14:34 37.0 C 73 20 146/95 H 96 Room Air 03/17/24 13:32 161/95 H 03/17/24 11:56 37.3 C 82 20 167/115 H 100 Room Air 03/17/24 10:13 92 H 03/17/24 08:53 75 142/91 H 03/17/24 07:48 37 C 82 16 162/101 H 98 Room Air Laboratory Results CBC, CMP reviewed PG Care Time/CCT Total # of Minutes Spent Total Time Spent with Patient: Total time spent is greater than 50% in coordination of care (as documented) at patient's floor/unit and/or counseling patient: Coding Level of Care Code 78183 SUB INP/OBS CARE 2/35MIN Diagnoses Alcohol withdrawal F10.939 Complication of substance-induced condition: with unspecified complication Hypertensive urgency I16.0 Elevated LFTs R79.89 Thrombocytopenia D69.6 Anxiety F41.9 (1) Alcohol withdrawal Complication of substance-induced condition: with unspecified complication Qualified Code(s): F10.939 - Alcohol use, unspecified with withdrawal, unspecified
[2024-03-17] MEDS: PHENobarbitaL 30 MG TAB PO SCH (23:10)
--- NOTE | 2024-03-18 07:44 | Hospitalist Progress Note ---
Date of Service March 18, 2024 Assessment & Plan Admission and Anticipated Discharge Date Admission Date: March 14, 2024 Results & Data Results & Data Vital Signs (Past 12 Hours) Vital Signs Temp Pulse Pulse Resp BP Pulse Ox O2 Del Method 03/18/24 05:48 36.6 C 72 18 158/105 H 99 Room Air 03/17/24 22:46 36.6 C 73 18 159/106 H 100 Room Air 03/17/24 21:57 74 03/17/24 20:40 Room Air 03/17/24 20:07 71 18 173/108 H 98 Room Air PG Care Time/CCT Total # of Minutes Spent Total Time Spent with Patient: Total time spent is greater than 50% in coordination of care (as documented) at patient's floor/unit and/or counseling patient: Coding
[2024-03-18 08:01] LABS: Basophils # (auto) 0.04 K/uL (0.00-0.20); Basophils % (auto) 0.8 %; Eosinophils # (auto) 0.16 K/uL (0.00-0.50); Eosinophils % (auto) 3.2 %; Hematocrit (blood only) 44.1 % (42.0-52.0); Hemoglobin 15.1 g/dl (14.0-18.0); Immature Granulocytes # (auto) 0.03 K/uL (0.01-0.20); Immature Granulocytes % (auto) 0.6 %; Lymphocytes # (auto) 0.74 K/uL (1.20-3.40); Lymphocytes % (auto) 14.9 %; Mean Corpuscular Hemoglobin 31.1 pg (25.0-34.0); Mean Corpuscular Hgb Conc 34.2 g/dL (32.0-36.0); Mean Corpuscular Volume 90.9 fL (80.0-100.0); Mean Platelet Volume 9.8 fL (9.4-12.4); Monocytes # (auto) 0.75 K/uL (0.11-0.59); Monocytes % (auto) 15.1 %; Neutrophils # (auto) 3.25 K/uL (1.40-6.50); Neutrophils % (auto) 65.4 %; Platelet Count 115 K/uL (130-400); RDW Coefficient of Variation 13.2 % (11.5-14.5); Red Blood Count 4.85 M/uL (4.70-6.10); White Blood Count 4.97 K/ul (4.8-10.8)
[2024-03-18 08:09] VITALS: BP 164/99; RESP 20; TEMP 97.4; O2SAT 100
[2024-03-18 08:19] LABS: Albumin Globulin Ratio 1.4 (0.9-2); Albumin Level 4.5 gm/dl (3.4-5.0); BUN Creatinine Ratio 17.8 (10-20); Bilirubin,Total 0.6 mg/dl (0.2-1.0); Calcium 9.2 mg/dl (8.6-10.3); Creatinine Clr Calc Pharmacy 120.2 ml/min; Est GFR (African American) 118.3 ml/min; Est GFR (Non-African American) 102.1 ml/min; Globulin 3.2 gm/dl (2.5-4.0); Magnesium 1.8 mg/dl (1.7-2.4); Potassium 3.8 mmol/L (3.5-5.1); Total Protein 7.7 gm/dl (6.0-8.3)
--- NOTE | 2024-03-18 09:50 | Discharge Summary ---
Date of Service March 18, 2024 Admission HPI Per Admitting Provider Danny Park is a 48-year-old male with alcohol use disorder who presents to the ER with alcohol withdrawal. He reports nausea, vomiting, tremors, anxiety, insomnia, diaphoresis and palpitations. His last drink was noon yesterday. He has been drinking beer daily prior to this. He reports falling and possibly hitting his head but no loss of consciousness. He feels these are similar symptoms to prior alcohol withdrawals. He has a significant history alcohol withdrawal seizures. He denies any abdominal pain, diarrhea, fever or chills. Admission Exam Per Admitting Provider Constitutional: well developed and + acute distress (restlessness); + not well nourished Eyes: PERRL, conjunctivae normal, anicteric sclerae ENMT: external ear and nose normal, oropharynx normal Respiratory: normal respiratory effort, lungs clear to auscultation Cardiovascular: Rate/Rhythm: regular rhythm and + tachycardic Heart Sounds: no murmur Extremities: normal capillary refill and + pedal edema (trace b/l ed heath); no calf tenderness Gastrointestinal (Abdomen): normal bowel sounds, soft, nontender, no hepatosplenomegaly Skin: no rashes, warm and dry Neurologic: moves all extremities and awake; not confused Psychiatric: Orientation: alert and oriented x 3 Motor Behavior: + psychomotor agitation Principal Diagnosis Alcohol Withdrawal Discharge Exam Constitutional WD/WN, vitals as above Eyes + anicteric sclerae ENMT external ear and nose normal, oropharynx normal Neck trachea midline, no thyromegaly Respiratory normal respiratory effort, lungs clear to auscultation Cardiovascular RRR, no murmur, no edema Musculoskeletal Head/Neck/Chest: normocephalic and head atraumatic Skin no rashes, warm and dry Psychiatric A+Ox3, euthymic affect Discharge Data Allergies Allergy/AdvReac Type Severity Reaction Status Date / Time animal dander Allergy Intermediate Itching Unverified 03/14/24 17:54 Penicillins Allergy Mild Hives Verified 03/14/24 17:54 Consultations 03/14/24 17:19 ED Decision to Admit Stat Ordered Studies 03/14/24 15:59 CT cervical spine wo con Stat CT head/brain wo con Stat 03/15/24 09:03 US liver Routine Hospital Course (1) Alcohol withdrawal: (1) Alcohol withdrawal: Plan: - active withdrawal on admission and a h/o seizures - Last alcohol drink on 03/13/24, EtOH level zero on admission. AWSS 12 despite 2mg lorazepam given in the ER. Was given 2mg IV ativan and then started on phenobarbital protocol with loading dose - he was treated with thiamine 100mg po daily and folic acid 1 mg po daily, MVI 1 tab daily - Counseled on EtOH cessation- CM provided lists of EtOH rehab resources-he does not feel he needs this and has quit "cold turkey" for months in the past. Encouraged AA meetings - Could consider naltrexone for treatment as outpt (2) Hypertensive urgency: Plan: Secondary to alcohol withdrawal, improved with phenobarb as above Will need PCP f/u after EtOH withdrawal complete to see if has HTN (3) Elevated LFTs: Plan: previous liver US in 2020 showed hepatomegaly and fatty liver, likely from EtOH use TBili and LFTs trending downward/stable. Liver US here again shows fatty liver, otherwise small small gallstones follow LFTs INR normal on admit but platelets low-improving continue EtOH cessation Repeat order given for LFTs in 3 days. 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 Total Time Total Time Spent Total Time Spent (In Minutes): 30 min Total Time Includes: Examination of the Patient, Discharge Planning and Medication Reconciliation Discharge Plan Discharge Items Patient Disposition: Home - Self-Care Reason For Visit: ALCOHOL WITHDRAWAL Discharge Diagnosis: Alcohol Withdrawal Activity: Resume your previous activity Non-emergency contact: Primary Care Provider Call non-emergency contact if: your symptoms worsen Follow-up/Referrals: Marnie Lockhart MD [Physician] - PCP,NO [Primary Care Provider] - Diet: Regular Ambulatory Orders: Alanine Aminotransferase (Routine) Timeframe: 3 Days Location: Determined by Patient Ordered By: Marnie Lockhart Aspartate Aminotransferase (Routine) Timeframe: 3 Days Location: Determined by Patient Ordered By: Marnie Lockhart Complete Blood Count no Diff (Routine) Timeframe: 3 Days Location: Determined by Patient Ordered By: Marnie Lockhart Addtl Attending Provider Instructions: You were hospitalized at [facility] for management of symptoms related to alcohol withdrawal. You clinically improved while under our care. You did have evidence of inflammation of your liver and low platelet counts in your blood work -- these findings are due to the harmful effects of alcohol on your body's organs. We recommend you refrain from further alcohol consumption at this time. We discussed plugging you in with resources such as "AA" or alcohol counseling upon discharge. We can discuss options to help you remain sober at your hospital follow up visit. We can repeat your blood work in about 1 week to monitor your liver enzymes and platelets. Marnie Lockhart MD [address] [place] [address] [phone] Pending Studies at Discharge: No Stand-Alone Forms: My [facility], Smoking Cessation Medications and DC Order Prescriptions: Continued vitamin E 400 unit Capsule 400 unit PO DAILY multivitamin Tablet 1 tab PO DAILY vitamin B complex Tablet 1 tab PO DAILY cholecalciferol (vitamin D3) [Vitamin D3] 25 mcg (1,000 unit) Tablet 1,000 mcg PO DAILY loratadine [Claritin] 10 mg Tablet 10 mg PO DAILY ashwagandha root extract 300 mg Capsule 300 mg PO DAILY Discharge Orders: Discharge Order (Routine); Ordered 03/18/24 Ordered By: Marnie Lara/Other Patient Handouts: Addiction Disease, Alcohol Addiction, Alcoholism: Getting Help Admission Data Admit Date/Time: 03/14/24 18:02 Attending Provider: Marnie Lockhart Admit Provider: Aashish Chan Primary Care Provider: PCP,NO Other Providers: Aashish Chan Other Interventions: Discharge Summary Assessment (RN) Last Done: 03/18/24 10:17
[2024-03-18 10:19] VITALS: PULSE 87
== END 2024-03-18 11:15 | disposition home or self-care (01) | DRG 897 ==
LOC: ED 15:51 → SUATTDRO 18:02 → 2E 18:02